=== PATIENT | female | born 1940 | race Two or more races ===

== ENCOUNTER 2019-11-18 19:48 | Inpatient (IN) | payer MEDICARE, OTHER ==
[~2019-11-18] VITALS: Ht 157.5 cm; Wt 49.9 kg
[~2019-11-18 19:48] MED LIST: ACETAMINOP160 MG/51 ORAL; AMLODIPINE BESYL5 MG ORAL; ANTIVERT25 MG ORAL; ASPIRIN81 MG ORAL; BISACODYL10 M1 RC; BP MED PO; CALCIUM CARBON650 M3 ORAL; CYANOCOBAL1000 MCG/2 IM; HEPARIN SO5000 UNIT2 SUBQ; HYDRALAZINE HCL10 MG ORAL; HYDRALAZINE HCL25 M1 ORAL; HYDROCODON-ACE1 EA18 PO; IPRAT-ALBUT 0.5-3 ML IH; LISINOPRIL20 MG PO; MAGNESIUM OXID400 M1 ORAL; NORVASC5 MG PO; NS IV; PLAVIX75 MG ORAL; PROMETHAZI6.25 MG/1 ORAL; PROTONIX IV40 MG IV; TYLENOL EXTRA500 MG ORAL; ZESTRIL20 MG ORAL; ZOFRAN2 MG/1 M1 IV; ZYPREXA2.5 MG ORAL
--- NOTE | 2019-11-18 19:59 | Emergency Room Report ---
History of Present Illness General Chief Complaint: Fever Source: Patient Present Illness HPI Disclaimer: Please note that this report is being documented using DRAGON technology. This can lead to erroneous entry secondary to incorrect interpretation by the dictating instrument. HPI: 79-year-old female presents from senior care facility for evaluation of fever and hypoxia. She has a history of schizophrenia, stroke, COPD, chronic respiratory failure, Parkinson's disease. Per EMS, they were called for fevers as high as 100.4 degrees and longterm staff there reported desaturations however they found her saturating in the low 90s. She is come from [facility] which has multiple COVID-19 infections confirmed. Patient is not reporting any complaints at this time though seems to be mostly nonverbal and not aware of her situation. She does not do some questioning. Patient is full code according to nursing facility. PMH: Schizophrenia, COPD, chronic respiratory failure, status post pacemaker PSH: Pacemaker Allergies: None reported Social Hx: None reported Allergies: Coded Allergies: No Known Allergies (Unverified , 03/14/12) COVID-19 Screening Contact w/high risk pt: Yes Recent Travel to affected area: No Experienced COVID-19 symptoms?: Yes COVID-19 symptoms experienced: Fever (T>100.4F or >38C), Shortness of Breath Nursing Documentation-PMH Hx Cardiac Problems: Yes Hx Hypertension: Yes Hx Cancer: No Hx Gastrointestinal Problems: Yes Hx Dialysis: No - CKD Hx Neurological Problems: Yes Hx Cerebrovascular Accident: Yes Hx Dementia: Yes Hx Dizziness: Yes Hx Weakness: Yes Review of Systems All Other Systems: negative except mentioned in HPI Physical Exam Vital Signs Date Time Temp Pulse Resp B/P (MAP) Pulse Ox O2 Delivery O2 Flow Rate FiO2 11/18/19 19:43 100.4 78 20 155/77 (103) 94 Room Air General: Awake, mostly nonverbal, frail-appearing HEENT: NC/AT. EOMI. Neck: Supple, trachea midline Chest Wall: Pacemaker palpable in chest wall Cardiovascular: RRR. Resp: 94% on room air, slightly rhonchorous, intermittent cough Abdomen: Abdomen is soft, nondistended. Nontender Skin: Intact. No abrasions, laceration or rash over the exposed skin MSK: Normal tone and bulk. Moving all extremities. No obvious deformity. Neuro: Awake, does not appear aware of her current situation. Medical Decision Making Diagnostic Impression: Primary Impression: Pneumonia due to COVID-19 virus Additional Impression: Suspected 2019 novel coronavirus infection ER Course 79-year-old female presents from senior care facility for evaluation of fevers and shortness of breath. Differential includes was not limited to pneumonia, bronchitis, viral syndrome, COVID-19 infection, sepsis, CHF exacerbation, COPD exacerbation, ACS to name a few. Based on the patient's presenting signs, symptoms and physical exam findings, the patient has been screened and is suspected to have COVID-19. Will send swabs and placed in respiratory isolation. We will draw blood labs including blood cultures, lactate. Will treat the patient's fever. She will require admission in respiratory isolation. Laboratory Tests Test 11/18/19 20:19 11/18/19 20:40 11/18/19 21:03 White Blood Count 5.2 K/UL (4.8-10.8) Red Blood Count 3.53 M/UL (4.20-5.40) L Hemoglobin 10.0 G/DL (12.0-16.0) L Hematocrit 31.0 % (37.0-47.0) L Mean Corpuscular Volume 88 FL (80-99) Mean Corpuscular Hemoglobin 28.3 PG (27.0-31.0) Mean Corpuscular Hemoglobin Concent 32.2 G/DL (32.0-36.0) Red Cell Distribution Width 14.1 % (11.6-14.8) Platelet Count 160 K/UL (150-450) Mean Platelet Volume 8.2 FL (6.5-10.1) Neutrophils (%) (Auto) 78.7 % (45.0-75.0) H Lymphocytes (%) (Auto) 12.1 % (20.0-45.0) L Monocytes (%) (Auto) 9.0 % (1.0-10.0) Eosinophils (%) (Auto) 0.0 % (0.0-3.0) Basophils (%) (Auto) 0.3 % (0.0-2.0) Sodium Level 138 MMOL/L (136-145) Potassium Level 4.6 MMOL/L (3.5-5.1) Chloride Level 103 MMOL/L (98-107) Carbon Dioxide Level 26 MMOL/L (21-32) Blood Urea Nitrogen 37 mg/dL (7-18) H Creatinine 1.4 MG/DL (0.55-1.30) H Estimated Glomerular Filtration Rate 36.4 mL/min (>60) Glucose Level 133 MG/DL (74-106) H Lactic Acid Level 0.90 mmol/L (0.4-2.0) Calcium Level 8.7 MG/DL (8.5-10.1) Total Bilirubin 0.4 MG/DL (0.2-1.0) Aspartate Amino Transferase (AST) 17 U/L (15-37) Alanine Aminotransferase (ALT) < 6 U/L (12-78) L Alkaline Phosphatase 71 U/L (46-116) Total Creatine Kinase 27 U/L (26-308) Creatine Kinase MB < 0.5 NG/ML (0.0-3.6) Creatine Kinase MB Relative Index 1.8 Troponin I 0.000 ng/mL (0.000-0.056) Pro-B-Type Natriuretic Peptide 368 pg/mL (0-125) H Total Protein 7.3 G/DL (6.4-8.2) Albumin 3.0 G/DL (3.4-5.0) L Globulin 4.3 g/dL Albumin/Globulin Ratio 0.7 (1.0-2.7) L Urine Color Pending Urine Appearance Pending Urine pH Pending Urine Specific [place] Pending Urine Protein Pending Urine Glucose (UA) Pending Urine Ketones Pending Urine Blood Pending Urine Nitrite Pending Urine Bilirubin Pending Urine Urobilinogen Pending Urine Leukocyte Esterase Pending Arterial Blood pH 7.430 (7.350-7.450) Arterial Blood Partial Pressure CO2 37.6 mmHg (35.0-45.0) Arterial Blood Partial Pressure O2 73.9 mmHg (75.0-100.0) L Arterial Blood HCO3 24.6 mmol/L (22.0-26.0) Arterial Blood Oxygen Saturation 94.2 % (95-100) L Arterial Blood Base Excess 0.5 (-2-2) [place] Test Positive Microbiology Date/Time Source Procedure Growth Status 11/18/19 20:19 Nasal Nares - Final Complete 11/18/19 20:19 Nasal Nares - Final Complete EKG Diagnostic Results EKG Time: 19:55 Rate: normal Rhythm: NSR ST Segments: no acute changes Other Impression Sinus rhythm, left axis deviation, normal intervals, nonspecific T wave changes. Anterior Q waves Rhythm Strip Diag. Results Rhythm Strip Time: 19:55 EP Interpretation: yes Rate: 80s Rhythm: NSR, no PVC's, no ectopy Chest X-Ray Diagnostic Results Chest X-Ray Diagnostic Results : Chest X-Ray Ordered: Yes # of Views/Limited/Complete: 1 View Interpretation: other - Right lower lobe consolidation and bilateral pulmonary congestion, pacemaker left upper chest Impression: Other - Right lower lobe consolidation suspicious for pneumonia. Bilateral pulmonary congestion Electronically Signed by: Electronically signed by Dr. Thanh Will Reevaluation Time: 21:22 Last Vital Signs Date Time Temp Pulse Resp B/P (MAP) Pulse Ox O2 Delivery O2 Flow Rate FiO2 11/18/19 19:43 100.4 78 20 155/77 (103) 94 Room Air Reevaluation Impression X-ray concerning for right lower lobe infiltrate and bilateral pulmonary congestion. Suspect COVID-19 in this patient. Will remain in respiratory isolation, start on ceftriaxone azithromycin. Slight hypoxia on ABG but the patient is feeling better on oxygen. Not in respiratory distress. He will be admitted to the hospital for further care to her PMD, Dr. Ovalle. Disposition: ADMITTED INPATIENT Condition: Serious Thanh Will MD Nov 18, 2019 19:59
[2019-11-18] MEDS ORDERED: Acetaminophen 500mg (ES) tab ORAL ONE (20:00)
[2019-11-18 20:05] VITALS: BP 130/74
--- NOTE | 2019-11-18 20:05 | NUR ---
ED Nurse Note: Patient brought in by ambulance [id number] from [facility] d/t low O2 sat and fever. Patient nonverbal and only responds to deep pain. Patient bedridden. Patient temp upon assessment 101.9 F all other VSS. Patient placed on curb attendant. Patient 93% O2 sat on 4L Nasal Cannula. Patient stable upon assessment. Addendum: 11/18/19 at 2113 by RHIANNON ED Nurse Note: Patient brought in by ambulance [id number] from [facility] d/t low O2 sat and fever. Patient aao x 1 only able to state name and nonverbal otherwise, follows simple commands. Responds to deep pain. Patient bedridden d/t hx of unsteady gait. Patient temp upon assessment 101.9 F all other VSS. Patient placed on curb attendant. Patient 93% O2 sat on 4L Nasal Cannula. Patient stable upon assessment.
[2019-11-18] MEDS ORDERED: CATAPRES0.1 MG ORAL (20:07)
[2019-11-18] MEDS ORDERED: FLOMAX0.4 MG ORAL (20:07)
[2019-11-18] MEDS ORDERED: RISPERDAL2 MG ORAL (20:07)
--- NOTE | 2019-11-18 20:25 | NUR ---
ED Nurse Note: blood, flu swab, and covid swab sent to lab. Xray at bedside.
[2019-11-18 20:44] LABS: BASOPHILS % (AUTO) 0.3 % (0.0-2.0); LYMPHOCYTES % (AUTO) 12.1 % (20.0-45.0); MEAN CORPUSCULAR VOLUME 88 FL (80-99); NEUTROPHILS % (AUTO) 78.7 % (45.0-75.0); PLATELET COUNT 160 K/UL (150-450); RED BLOOD COUNT 3.53 M/UL (4.20-5.40); RED CELL DISTRIBUTION WIDTH 14.1 % (11.6-14.8); WHITE BLOOD COUNT 5.2 K/UL (4.8-10.8)
--- NOTE | 2019-11-18 20:46 | NUR ---
ED Nurse Note: urine collected and sent to lab.
--- NOTE | 2019-11-18 20:55 | NUR ---
ED Nurse Note: Patient unable to swallow oral medication tylenol, ERMD notified, order changed to rectal tylenol.
[2019-11-18] MEDS ORDERED: Acetaminophen 650 MG SUPP RECTAL ONE (21:00)
[2019-11-18 21:02] LABS: CALCIUM 8.7 MG/DL (8.5-10.1); CHLORIDE 103 MMOL/L (98-107); CKMB < 0.5 NG/ML (0.0-3.6); POTASSIUM 4.6 MMOL/L (3.5-5.1); SODIUM 138 MMOL/L (136-145)
--- NOTE | 2019-11-18 21:02 | NUR ---
ED Nurse Note: ERMD at bedside. Per ERMD, ok to stay on 4L Nasal Cannula O2 sat at 95% upon assessment.
--- NOTE | 2019-11-18 21:06 | NUR ---
ED Nurse Note: RT at bedside.
--- NOTE | 2019-11-18 21:08 | NUR ---
ED Nurse Note: MRSA and VRE swab collected and sent to lab.
--- NOTE | 2019-11-18 21:11 | NUR ---
ED Nurse Note: Rocephin IV started, Azythromycin held until Rocephin completed d/t unknown IV compatibility.
[2019-11-18] MEDS ORDERED: Azithromycin 500 MG in NS 275 ML IV ONE (21:15)
[2019-11-18] MEDS ORDERED: cefTRIAXone 1 GM in NS 55 ML IVPB ONE (21:15)
[2019-11-18 21:20] LABS: BILIRUBIN, URINE NEGATIVE (NEGATIVE); COLOR,URINE PALE YELLOW; GLUCOSE, URINE (UA) NEGATIVE (NEGATIVE); KETONES,URINE NEGATIVE (NEGATIVE); LEUKOCYTE ESTERASE ,URINE 2+ (NEGATIVE); NITRITE,URINE POSITIVE (NEGATIVE); PH,URINE 5 (4.5-8.0); PROTEIN,URINE 3+ (NEGATIVE); UROBILINOGEN,URINE NORMAL MG/DL (0.0-1.0)
[2019-11-18 21:23] LABS: ALANINE AMINOTRANSFERASE < 6 U/L (12-78); ALBUMIN/GLOBULIN RATIO 0.7 (1.0-2.7); ALKALINE PHOSPHATASE 71 U/L (46-116); ASPARTATE AMINO TRANSFERASE 17 U/L (15-37); BILIRUBIN,TOTAL 0.4 MG/DL (0.2-1.0); BLOOD UREA NITROGEN 37 mg/dL (7-18); CARBON DIOXIDE 26 MMOL/L (21-32); CREATINE KINASE 27 U/L (26-308); CREATININE 1.4 MG/DL (0.55-1.30)
[2019-11-18] MEDS ORDERED: Acetaminophen 500mg (ES) tab ORAL PRN (21:30)
[2019-11-18] MEDS ORDERED: Heparin 5000 units/ml inj SUBQ SCH ×2 (21:30→23:00)
[2019-11-18] MEDS ORDERED: Albuterol 90mcg Inhaler 8gm INH PRN (21:30)
[2019-11-18 21:51] LABS: APPEARANCE,URINE SLIGHTLY CLOUDY
--- NOTE | 2019-11-18 22:02 | NUR ---
ED Nurse Note: Spoke to Reyes in pharmacy, informed that Heparin will be moved to 2300 instead of 2130 d/t med is for inpatient unit and pyxis in ER is not stocked with the medication.
[2019-11-18] MEDS ORDERED: Vancomycin 1gm/D5W 275ml IVPB ONE ×2 (23:00)
--- NOTE | 2019-11-18 23:49 | NUR ---
ED Nurse Note: Report given to CONNER Romero in tele.
--- NOTE | 2019-11-18 23:55 | NUR ---
TRANSFER TO FLOOR: Patient transferred to telemetry as ordered, per ERMD. Report given to CONNER Romero. Patient transported via gurney on ACLS protocol with tinware lithograph press operator accompanied by 1 RN and site damage prevention technician in stable condition.
--- NOTE | 2019-11-19 00:59 | NUR ---
NURSE NOTES: Received report from CONNER De La Vega. Patient arousable. In semi-mclean's position. AOx1. On 4L oxygen per nasal cannula. IV intact and flushed. No erythema, bleeding, or infiltration. skin intact. Bed in lowest position. Call light placed within reach. Clarified with Dr. Ovalle about his order of D5ND w/ 20meq KCl. Awaiting response. Will continue to monitor.
[2019-11-19] MEDS: Piperacillin/Tazobactam 3.375 GM in NS 110 ML IVPB SCH ×3 (02:58→22:44)
[2019-11-19 05:23] VITALS: BP 89/53
[2019-11-19 06:44] LABS: BASOPHILS % (AUTO) 0.4 % (0.0-2.0); EOSINOPHILS % (AUTO) 0.1 % (0.0-3.0); HEMATOCRIT 28.5 % (37.0-47.0); HEMOGLOBIN 9.5 G/DL (12.0-16.0); LYMPHOCYTES % (AUTO) 14.8 % (20.0-45.0); MEAN CORPUSCULAR VOLUME 86 FL (80-99); MONOCYTES % (AUTO) 8.5 % (1.0-10.0); NEUTROPHILS % (AUTO) 76.3 % (45.0-75.0); PLATELET COUNT 152 K/UL (150-450); RED CELL DISTRIBUTION WIDTH 12.7 % (11.6-14.8); WHITE BLOOD COUNT 4.7 K/UL (4.8-10.8)
--- NOTE | 2019-11-19 07:09 | NUR ---
NURSE NOTES: Dr. Ovalle modified IV hydration of D5ND w/ KCl 20 meq at a rate of 70/hr for 1 liter.
[2019-11-19 07:13] LABS: ANION GAP 8 mmol/L (5-15); BLOOD UREA NITROGEN 38 mg/dL (7-18); CALCIUM 8.2 MG/DL (8.5-10.1); CARBON DIOXIDE 26 MMOL/L (21-32); CHLORIDE 106 MMOL/L (98-107); CREATININE 1.4 MG/DL (0.55-1.30); POTASSIUM 4.4 MMOL/L (3.5-5.1); SODIUM 140 MMOL/L (136-145)
[2019-11-19 07:19] LABS: ALANINE AMINOTRANSFERASE 9 U/L (12-78); ALBUMIN 2.7 G/DL (3.4-5.0); ALBUMIN/GLOBULIN RATIO 0.7 (1.0-2.7); ALKALINE PHOSPHATASE 61 U/L (46-116); ASPARTATE AMINO TRANSFERASE 16 U/L (15-37); BILIRUBIN,TOTAL 0.3 MG/DL (0.2-1.0)
--- NOTE | 2019-11-19 07:31 | NUR ---
HAND-OFF: Report given to CONNER Swan. Plan of care endorsed.
[2019-11-19 08:00] VITALS: BP 114/74
[2019-11-19] MEDS: Tamsulosin 0.4mg cap ORAL SCH (09:27)
[2019-11-19] MEDS: Heparin 5000 units/ml inj SUBQ SCH ×2 (09:32→21:04)
--- NOTE | 2019-11-19 09:47 | Diagnostic Imaging Report ---
Indication: Shortness of breath Technique: One view of the chest Comparison: 07/21/2015 Findings: Inspiration is suboptimal. Interim development of interstitial and airspace opacities in the bilateral mid and lower lungs. There is evidence of hyperinflation of the right upper lobe The pleural spaces are clear. The heart size is normal. Interim placement of a left chest pacemaker Impression: Bilateral mid and lower lung opacities, likely infiltrates, either infectious or noninfectious of inflammatory. Edema also possible. Correlate with clinical findings
--- NOTE | 2019-11-19 10:51 | NUR ---
NURSE NOTES: Received patient from Selene Torrez. Patient is awake, non verbal. follow very simple commands. No signs and symptoms of pain at this time. Fall/Aspiration precsutions in place. call farley within patients reach. will follow
[2019-11-19 12:00] VITALS: BP 145/84
[2019-11-19] MEDS ORDERED: Azithromycin 250mg tab ORAL SCH (12:00)
--- NOTE | 2019-11-19 12:09 | NUR ---
CASE MANAGEMENT:REVIEW 79 YR OLD FEMALE BIBA FROM [facility] CC; FEVER 100.4. SOB. LOW SAT SI: PNA. SUSPECTED COVID 19 100.4 78 20 155/77 93% ON 4L/NC BUN+37 CR+1.4 IS: IV ROCEPHIN IV AZITHROMYCIN TYLENOL PO AND ID URINE CX CHEST XRAY COVID 19 : TO TELEMETRY DCP: [facility]
[2019-11-19] MEDS ORDERED: HydrALAZINE 10mg Tab ORAL PRN (12:45)
[2019-11-19 16:00] VITALS: BP 97/60
--- NOTE | 2019-11-19 16:30 | NUR ---
NURSE NOTES: Patient noted with temp oral temp of 101.1. Tylenol and cold sponge rendered. Recent temp 98.4. Will follow
--- NOTE | 2019-11-19 17:15 | Consultation ---
DATE OF CONSULTATION: 11/19/2019 INFECTIOUS DISEASES CONSULTATION CONSULTING PHYSICIAN: Marcela Zafar MD. REFERRING PHYSICIAN: Bhavesh Ovalle MD. REASON FOR CONSULTATION: Rule out COVID pneumonia. HISTORY OF PRESENTING ILLNESS: This is a 79-year-old lady with history of schizophrenia, COPD, respiratory failure, who came in with fever and hypoxia from a [place] [facility] facility where they have multiple COVID-19 infection. An Infectious Diseases consultation has been obtained for antibiotics. PAST MEDICAL HISTORY: 1. History of COPD. 2. History of schizophrenia. 3. Respiratory failure. 4. Status post pacemaker placement. SOCIAL HISTORY: Unknown. FAMILY HISTORY: Unknown. REVIEW OF SYSTEMS: Unable to obtain currently. MEDICATIONS: As an inpatient, she is on amlodipine, Risperdal, Flomax, subcutaneous heparin, clonidine, Zosyn, Tylenol, hydralazine, vancomycin, albuterol. ALLERGIES: No known drug allergies. PHYSICAL EXAMINATION: VITAL SIGNS: Temperature 98.8, T-max of 101.9, pulse of 70, respiratory rate 18, blood pressure 114/74, O2 saturation of 94%. Examination deferred due to COVID-19 possibility. LABORATORY AND DIAGNOSTIC DATA: White count 4.7, hemoglobin 9.5, hematocrit 28.5, MCV 86, platelet count of 152, neutrophils of 76%. Sodium 140, potassium 4.4, chloride 106, bicarb 26, BUN 38, creatinine 1.4, glucose 95, calcium 8.2. Total bilirubin 0.3, AST 16, ALT 9, alkaline phosphatase 61, total protein 6.6, albumin 2.7. UA showing 20 to 30 white cells. Nasal swab was negative for influenza A and B. Chest x-ray is showing bilateral mid and lower lung opacities likely infiltrate. ASSESSMENT: This is a 79-year-old lady with history of schizophrenia, stroke, COPD who comes in with fevers and is found to have: 1. Pneumonia, COVID-19 testing is pending. 2. History of schizophrenia. 3. Stroke. 4. COPD. PLAN: 1. Continue IV vancomycin and Zosyn. 2. COVID-19 testing is pending. 3. We will start the patient on hydroxychloroquine and azithromycin. 4. We will follow up the patient clinically. I would like to thank, Dr. Ovalle for this consultation. Marcela Zafar M.D. DR: Kris JOB#: [id number] CC: Bhavesh Ovalle M.D.
--- NOTE | 2019-11-19 19:29 | NUR ---
HAND-OFF: Report given to Selene Vidal. Plan of care endorsed.
--- NOTE | 2019-11-19 19:40 | NUR ---
NURSE NOTES: Received report from CONNER Swan. Patient is on bed, awake alert and oriented x 1-2. Patient connected to oxygen via nasal cannula @ 2Lpm with no respiratory distress noted at the moment, on regular diet, finely chopped, thin liquids, crush medications. classroom monitor is on placed on sinus rhythm, no chest pain nor discomfort at this time. IV is on Left AC G-20 with IVF of D5NSS with 20 meqs KCL @ 70cc/hour that is patent, intact and asymptomatic. Patient is bedbound, on aspiration precaution. Safety measures are in placed. Bed in lowest and locked position. Call light and bed side table within reach. Side rails up x 2, bed alarm is on. Instructed to call for any assistance, will continue plan of care.
[2019-11-19 20:00] VITALS: BP 136/76
[2019-11-20] VITALS: BP 147/77
--- NOTE | 2019-11-20 03:00 | History and Physical Report ---
DATE OF ADMISSION: 11/18/2019 CHIEF COMPLAINT: Possible COVID pneumonia. HISTORY OF PRESENT ILLNESS: The patient is a pleasant 79-year-old female, well known to me. She has a history of Parkinson's disease, bipolar disorder, hypertension, COPD, chronic kidney disease, stroke, conduction system disease status post pacemaker. She was transferred from a group home facility with complaints of generalized weakness, malaise, cough, fevers that started approximately one week ago and noted that several other residents at her facility have been tested positive for COVID-19. On evaluation in the emergency room, the patient was febrile. She was hypoxic and placed on 2 liters nasal cannula. Laboratories were significant for normal white count. Creatinine of 1.4. Urinalysis, 20-30 wbc's. Chest x-ray showed bilateral mid and lower lung opacities, likely infiltrates. The patient was influenza negative. She is now on presumptive diagnosis of COVID-19 pneumonia versus bacterial pneumonia. PAST MEDICAL HISTORY: As above. PAST SURGICAL HISTORY: None. CURRENT MEDICATIONS: Reconciled and reviewed. ALLERGIES: None. FAMILY HISTORY: None. SOCIAL HISTORY: Negative for tobacco, ethanol, or drugs. REVIEW OF SYSTEMS: GENERAL: Positive fevers and chills, but no night sweats. HEENT: No headaches or visual changes. CARDIOPULMONARY: Positive cough. Positive shortness of breath. No sputum. GASTROINTESTINAL: No nausea or vomiting. GENITOURINARY: No urgency or frequency. MUSCULOSKELETAL: No joint pain or swelling. NEUROLOGIC: No evidence of seizures. PHYSICAL EXAMINATION: VITAL SIGNS: Temperature was 101.1, pulse 87, respirations 20, blood pressure 145/84, O2 saturation 94% on two liters nasal cannula. GENERAL: The patient is well developed, distress. She has mild tremor noted that is chronic. NECK: Supple. There is no jugular venous distention. HEART: Regular rate and rhythm. LUNGS: Clear anteriorly. ABDOMEN: Soft, nontender, nondistended. EXTREMITIES: Without clubbing, cyanosis, or edema. LABORATORY DATA: UA showed 20-30 wbc's. White count 5, hemoglobin 10. Sodium 138, potassium 4.6, magnesium was 2. ASSESSMENT: The patient is a 79-year-old female with multiple medical problems admitted with complaints of shortness of breath, fever, cough and likely COVID-19 pneumonia. She also has urinary tract infection, history of hypertension, stroke, and pacemaker. PLAN: 1. IV antibiotics for UTI. 2. Supplemental oxygen as needed. 3. Continue outpatient cardiac regimen. 4. Cardiology, Pulmonary, and ID consultation. 5. Possibility of COVID-19 pneumonia was discussed with the patient. She has had intermittent cough and fevers for approximately seven days and has had definite exposure at the intermediate. Risk and benefits of starting hydroxychloroquine and azithromycin were discussed with the patient and she was agreeable with starting therapy. It was also discussed with steamfitter apprentice who believes that the benefits outweigh the risks. The patient again gave consent to trying hydroxychloroquine and azithromycin for COVID-19 pneumonia. Bhavesh Ovalle M.D. DR: Aleida JOB#: [id number] CC:
[2019-11-20 04:00] VITALS: BP 135/72
--- NOTE | 2019-11-20 05:00 | Progress Note ---
DATE: 11/19/2019 CARDIOLOGY PROGRESS NOTE SUBJECTIVE: The patient still has fevers and congestion with cough. She is on day 2 of anti-COVID therapy. Oxygen saturation on room air is 94%. OBJECTIVE: VITAL SIGNS: Blood pressure 136/76, heart rate 69, respiratory rate 19. LUNGS: Bilateral breath sounds. LUNGS: Rhonchi. CARDIAC: Regular rhythm and rate. Normal S1, S2. ABDOMEN: Soft. EXTREMITIES: No edema. IMPRESSION: 1. COVID-19 pneumonia. 2. Permanent pacemaker. 3. Cerebrovascular disease. 4. History of COPD. PLAN: 1. Cardiac monitoring. 2. Follow up QTc interval. 3. Azithromycin and hydroxychloroquine combination day #2 today. 4. DVT prophylaxis. 5. Nasal oxygen. 6. Maintain adequate hydration. 7. Monitor electrolytes and replace accordingly, especially potassium and magnesium levels while on current anti-COVID therapy. Hadley Rowland M.D. DR: Danial JOB#: [id number] CC:
[2019-11-20] MEDS: Piperacillin/Tazobactam 3.375 GM in NS 110 ML IVPB SCH ×3 (05:51→22:34)
[2019-11-20 06:02] LABS: BASOPHILS % (AUTO) 0.1 % (0.0-2.0); EOSINOPHILS % (AUTO) 0.3 % (0.0-3.0); HEMATOCRIT 29.8 % (37.0-47.0); MEAN CORPUSCULAR VOLUME 85 FL (80-99); MONOCYTES % (AUTO) 7.5 % (1.0-10.0); NEUTROPHILS % (AUTO) 80.2 % (45.0-75.0); PLATELET COUNT 173 K/UL (150-450); RED BLOOD COUNT 3.49 M/UL (4.20-5.40); RED CELL DISTRIBUTION WIDTH 12.8 % (11.6-14.8); WHITE BLOOD COUNT 5.7 K/UL (4.8-10.8)
[2019-11-20 06:47] LABS: ALANINE AMINOTRANSFERASE 18 U/L (12-78); ALBUMIN 2.7 G/DL (3.4-5.0); ALBUMIN/GLOBULIN RATIO 0.6 (1.0-2.7); ALKALINE PHOSPHATASE 58 U/L (46-116); ANION GAP 10 mmol/L (5-15); ASPARTATE AMINO TRANSFERASE 20 U/L (15-37); BILIRUBIN,TOTAL 0.4 MG/DL (0.2-1.0); BLOOD UREA NITROGEN 33 mg/dL (7-18); CALCIUM 8.6 MG/DL (8.5-10.1); CARBON DIOXIDE 25 MMOL/L (21-32); CHLORIDE 106 MMOL/L (98-107); CREATININE 1.4 MG/DL (0.55-1.30); POTASSIUM 4.7 MMOL/L (3.5-5.1); SODIUM 141 MMOL/L (136-145)
--- NOTE | 2019-11-20 07:19 | NUR ---
HAND-OFF: Report given to CONNER Woods. Patient is in stable condition, no complaints at this time. Plan of care endorsed.
--- NOTE | 2019-11-20 07:46 | NUR ---
NURSE NOTES: Received report from CONNER Vidal. Patient in bed resting, no active s/s cardiac, respiratory distress noticed at this time. Patient AOx1, on nasal cannula, non-verbal, follow simple command. IV on left AC 20G, asymptomatic, patent, intact, IVF running as prescribed rate. Bed in lowest position, side rails upx2, call light within reach, bed alarm on. Will continue to monitor.
[2019-11-20 08:00] VITALS: BP 105/59
[2019-11-20] MEDS: Tamsulosin 0.4mg cap ORAL SCH (08:54)
[2019-11-20] MEDS: Heparin 5000 units/ml inj SUBQ SCH ×2 (08:55→20:47)
[2019-11-20] MEDS: Azithromycin 250mg tab ORAL SCH (08:55)
[2019-11-20] MEDS ORDERED: Vancomycin 1.25gm/NS Premix q24h IVPB SCH (10:00)
--- NOTE | 2019-11-20 10:36 | General Progress Note ---
Assessment/Plan Problem List: (1) CKD (chronic kidney disease) stage 1, GFR 90 ml/min or greater ICD Codes: N18.1 - Chronic kidney disease, stage 1 SNOMED: 447498409 (2) CVA (cerebral vascular accident) ICD Codes: I63.9 - Cerebral infarction, unspecified SNOMED: 986278511 (3) Encephalopathy acute ICD Codes: G93.40 - Encephalopathy acute SNOMED: 5744865 (4) DINA (acute kidney injury) ICD Codes: N17.9 - DINA (acute kidney injury) SNOMED: 53701695 (5) Pneumonia due to COVID-19 virus ICD Codes: U07.1 - COVID-19; J12.89 - Other viral pneumonia SNOMED: 069644050, 290249502 Status: stable, progressing Assessment/Plan: Continue supplemental oxygen as needed. Coronavirus treatment per ID. Antiplatelet treatment. Monitor lites and renal function. Monitor EKG for QT prolongation. Cardiology and infectious disease follow-up. dvt and stress ulcer prophylaxis. Plan of care discussed with patient at the bedside. Patient agrees with plan of care Subjective ROS Limited/Unobtainable: No Constitutional: Reports: malaise, weakness HEENT: Reports: no symptoms Cardiovascular: Reports: no symptoms Respiratory: Reports: cough, shortness of breath Gastrointestinal/Abdominal: Reports: no symptoms Genitourinary: Reports: no symptoms Neurologic/Psychiatric: Reports: anxiety, depressed, emotional problems Endocrine: Reports: no symptoms Hematologic/Lymphatic: Reports: no symptoms Allergies: Coded Allergies: No Known Allergies (Unverified , 03/14/12) All Systems: reviewed and negative except above Subjective There have been no overnight events. Patient remains in isolation for coronavirus. She remains on 2 L of oxygen via nasal cannula. No chest pain or shortness of breath. Currently tolerating hydroxychloroquine and azithromycin. Fevers are improving. Objective Last 24 Hour Vital Signs Date Time Temp Pulse Resp B/P (MAP) Pulse Ox O2 Delivery O2 Flow Rate FiO2 11/20/19 09:00 60 105/59 11/20/19 09:00 Nasal Cannula 2.0 11/20/19 08:00 2.0 11/20/19 08:00 60 11/20/19 08:00 97.3 60 24 105/59 (74) 91 11/20/19 05:52 147/72 11/20/19 04:00 99.5 75 24 135/72 (93) 90 11/20/19 04:00 2.0 11/20/19 03:43 68 11/20/19 00:04 125/71 11/20/19 00:00 99.3 79 23 147/77 (100) 91 11/20/19 00:00 2.0 11/19/19 23:37 64 11/19/19 21:00 Nasal Cannula 2.0 11/19/19 20:00 98.6 69 19 136/76 (96) 93 11/19/19 20:00 2.0 11/19/19 19:02 70 11/19/19 18:00 97/60 11/19/19 18:00 67 97/60 11/19/19 16:00 2.0 11/19/19 16:00 98.4 66 20 97/60 (72) 90 11/19/19 16:00 67 11/19/19 14:00 100.5 11/19/19 12:49 100.5 11/19/19 12:19 145/84 11/19/19 12:00 90 11/19/19 12:00 101.1 87 20 145/84 (104) 94 11/19/19 12:00 2.0 Intake and Output 11/19/19 11/20/19 19:00 07:00 Intake Total 190 ml 670 ml Output Total 1000 ml Balance 190 ml -330 ml Intake Oral 120 ml 250 ml IV Total 70 ml 420 ml Output Urine Total 1000 ml # Voids 2 2 Laboratory Tests 11/20/19 05:30: White Blood Count 5.7, Red Blood Count 3.49L, Hemoglobin 10.0L, Hematocrit 29.8L , Mean Corpuscular Volume 85, Mean Corpuscular Hemoglobin 28.8, Mean Corpuscular Hemoglobin Concent 33.7, Red Cell Distribution Width 12.8, Platelet Count 173, Mean Platelet Volume 8.3, Neutrophils (%) (Auto) 80.2H, Lymphocytes ( %) (Auto) 12.0L, Monocytes (%) (Auto) 7.5, Eosinophils (%) (Auto) 0.3, Basophils (%) (Auto) 0.1, Sodium Level 141, Potassium Level 4.7, Chloride Level 106, Carbon Dioxide Level 25, Anion Gap 10, Blood Urea Nitrogen 33H, Creatinine 1.4H, Estimat Glomerular Filtration Rate 36.4, Glucose Level 119H, Calcium Level 8.6, Magnesium Level 2.0, Total Bilirubin 0.4, Aspartate Amino Transf (AST /SGOT) 20, Alanine Aminotransferase (ALT/SGPT) 18, Alkaline Phosphatase 58, Total Protein 7.0, Albumin 2.7L, Globulin 4.3, Albumin/Globulin Ratio 0.6L, Thyroid Stimulating Hormone (TSH) 1.740, Random Vancomycin Level 6.8 Height (Feet): 5 Height (Inches): 2.00 Weight (Pounds): 120 General Appearance: WD/WN, alert Neck: supple Cardiovascular: normal rate Respiratory/Chest: chest wall non-tender, lungs clear, normal breath sounds, no respiratory distress, no accessory muscle use Abdomen: normal bowel sounds, non tender, soft, no organomegaly Edema: no edema noted Arm (L), no edema noted Arm (R), no edema noted Leg (L), no edema noted Leg (R), no edema noted Pedal (L), no edema noted Pedal (R), no edema noted Generalized Neurologic: cotton seed culler II-XII grossly normal, alert, responsive Skin: normal pigmentation Bhavesh Ovalle MD Nov 20, 2019 10:36
--- NOTE | 2019-11-20 11:53 | Infectious Diseases Prog Note ---
Assessment/Plan Assessment/Plan A; 1. Pneumonia, suspected COVID-19 testing is pending. 2. History of schizophrenia. 3. Stroke. 4. COPD. 5. Pyuria & bacteriuria PLAN: 1. Discontinue IV vancomycin , Continue Zosyn. 2. Will f/u COVID-19 test & urine culture 3. Continue hydroxychloroquine and azithromycin. 4. We will follow up the patient clinically. Subjective ROS Limited/Unobtainable: Yes Constitutional: Reports: other - no fever today Allergies: Coded Allergies: No Known Allergies (Unverified , 03/14/12) Objective Vital Signs Last 24 Hour Vital Signs Date Time Temp Pulse Resp B/P (MAP) Pulse Ox O2 Delivery O2 Flow Rate FiO2 11/20/19 09:00 60 105/59 11/20/19 09:00 Nasal Cannula 2.0 11/20/19 08:00 2.0 11/20/19 08:00 60 11/20/19 08:00 97.3 60 24 105/59 (74) 91 11/20/19 05:52 147/72 11/20/19 04:00 99.5 75 24 135/72 (93) 90 11/20/19 04:00 2.0 11/20/19 03:43 68 11/20/19 00:04 125/71 11/20/19 00:00 99.3 79 23 147/77 (100) 91 11/20/19 00:00 2.0 11/19/19 23:37 64 11/19/19 21:00 Nasal Cannula 2.0 11/19/19 20:00 98.6 69 19 136/76 (96) 93 11/19/19 20:00 2.0 11/19/19 19:02 70 11/19/19 18:00 97/60 11/19/19 18:00 67 97/60 11/19/19 16:00 2.0 11/19/19 16:00 98.4 66 20 97/60 (72) 90 11/19/19 16:00 67 11/19/19 14:00 100.5 11/19/19 12:49 100.5 11/19/19 12:19 145/84 11/19/19 12:00 90 11/19/19 12:00 101.1 87 20 145/84 (104) 94 11/19/19 12:00 2.0 Height (Feet): 5 Height (Inches): 2.00 Weight (Pounds): 120 General Appearance: no acute distress HEENT: mucous membranes moist Respiratory/Chest: lungs clear, other - oxygen by nasal cannula Cardiovascular: normal rate Abdomen: soft, non tender Extremities: no edema Neurologic/Psychiatric: other - sleeping Microbiology Date/Time Source Procedure Growth Status 11/18/19 20:19 Blood Blood Culture - Preliminary NO GROWTH AFTER 24 HOURS Resulted 11/18/19 20:04 Blood Blood Culture - Preliminary NO GROWTH AFTER 24 HOURS Resulted 11/18/19 20:19 Nasal Nares - Final Complete 11/18/19 20:19 Nasal Nares - Final Complete 11/18/19 20:40 Urine,Clean Catch Urine Culture - Preliminary Gram Negative Bacillus 1 Resulted 11/18/19 21:00 Rectum Received Laboratory Tests Test 11/20/19 05:30 White Blood Count 5.7 K/UL (4.8-10.8) Red Blood Count 3.49 M/UL (4.20-5.40) L Hemoglobin 10.0 G/DL (12.0-16.0) L Hematocrit 29.8 % (37.0-47.0) L Mean Corpuscular Volume 85 FL (80-99) Mean Corpuscular Hemoglobin 28.8 PG (27.0-31.0) Mean Corpuscular Hemoglobin Concent 33.7 G/DL (32.0-36.0) Red Cell Distribution Width 12.8 % (11.6-14.8) Platelet Count 173 K/UL (150-450) Mean Platelet Volume 8.3 FL (6.5-10.1) Neutrophils (%) (Auto) 80.2 % (45.0-75.0) H Lymphocytes (%) (Auto) 12.0 % (20.0-45.0) L Monocytes (%) (Auto) 7.5 % (1.0-10.0) Eosinophils (%) (Auto) 0.3 % (0.0-3.0) Basophils (%) (Auto) 0.1 % (0.0-2.0) Sodium Level 141 MMOL/L (136-145) Potassium Level 4.7 MMOL/L (3.5-5.1) Chloride Level 106 MMOL/L (98-107) Carbon Dioxide Level 25 MMOL/L (21-32) Anion Gap 10 mmol/L (5-15) Blood Urea Nitrogen 33 mg/dL (7-18) H Creatinine 1.4 MG/DL (0.55-1.30) H Estimat Glomerular Filtration Rate 36.4 mL/min (>60) Glucose Level 119 MG/DL (74-106) H Calcium Level 8.6 MG/DL (8.5-10.1) Magnesium Level 2.0 MG/DL (1.8-2.4) Total Bilirubin 0.4 MG/DL (0.2-1.0) Aspartate Amino Transf (AST/SGOT) 20 U/L (15-37) Alanine Aminotransferase (ALT/SGPT) 18 U/L (12-78) Alkaline Phosphatase 58 U/L (46-116) Total Protein 7.0 G/DL (6.4-8.2) Albumin 2.7 G/DL (3.4-5.0) L Globulin 4.3 g/dL Albumin/Globulin Ratio 0.6 (1.0-2.7) L Thyroid Stimulating Hormone (TSH) 1.740 uiU/mL (0.358-3.740) Random Vancomycin Level 6.8 ug/mL Current Medications Medications (Trade) Dose Ordered Sig/David Route PRN Reason Start Time Stop Time Status Last Admin Dose Admin Acetaminophen (Tylenol) 650 mg Q6H PRN ORAL Mild Pain (Pain Scale 1-3) 11/18/19 21:30 12/18/19 21:29 11/19/19 12:19 Albuterol Sulfate (Proventil MDI) 2 puff Q4H PRN INH Shortness of Breath 11/18/19 21:30 02/16/20 21:29 Amlodipine Besylate (Norvasc) 5 mg BID ORAL 11/19/19 09:00 12/19/19 08:59 11/19/19 09:27 Azithromycin (Zithromax) 250 mg DAILY ORAL 11/20/19 09:00 11/23/19 09:01 11/20/19 08:55 Clonidine HCl (Catapres Tab) 0.1 mg EVERY 6 HOURS ORAL 11/19/19 00:00 02/17/20 00:00 11/20/19 05:52 Dextrose/ Electrolytes 1,000 ml @ 70 mls/hr [id number] IV 11/19/19 08:00 12/18/19 07:59 11/20/19 04:26 Heparin Sodium (Porcine) (Heparin 5000 units/ml) 5,000 units BID@0900,2100 SUBQ 11/19/19 09:00 01/03/20 08:59 11/20/19 08:55 Hydralazine HCl (Apresoline) 10 mg Q6H PRN ORAL PRN SBP>160 11/19/19 12:45 02/17/20 12:44 Hydroxychloroquine Sulfate (Plaquenil) 200 mg BID ORAL 11/20/19 09:00 11/23/19 18:01 11/20/19 08:55 Magnesium Oxide (Mag-Ox 400mg) 400 mg BID ORAL 11/20/19 18:00 12/20/19 17:59 Piperacillin Sod/ Tazobactam Sod 3.375 gm/Sodium Chloride 110 ml @ 27.5 mls/hr EVERY 8 HOURS IVPB 11/18/19 23:00 11/23/19 22:59 11/20/19 05:51 Risperidone (RisperDAL) 2 mg DAILY ORAL 11/19/19 09:00 01/03/20 08:59 11/20/19 08:54 Tamsulosin HCl (Flomax) 0.4 mg DAILY ORAL 11/19/19 09:00 12/19/19 08:59 11/20/19 08:54 Vancomycin HCl (Vanco rx to dose) 1 ea DAILY PRN MISC Per rx protocol 11/18/19 21:30 12/18/19 21:29 Vancomycin/Sodium Chloride 275 ml @ 183.333 mls/hr ONCE IVPB 11/20/19 10:00 11/20/19 12:00 11/20/19 10:53 Eleazar Prieto MD Nov 20, 2019 11:53
[2019-11-20 12:00] VITALS: BP 95/55
[2019-11-20 16:00] VITALS: BP 137/83
[2019-11-20] MEDS: Magnesium Oxide 400mg tab ORAL SCH (17:11)
--- NOTE | 2019-11-20 19:29 | NUR ---
HAND-OFF: Report given to CONNER Vidal. Endorsed plan of care.
--- NOTE | 2019-11-20 19:33 | NUR ---
NURSE NOTES: Received report from CONNER Woods. Patient is on bed, asleep alert and oriented x 1. Patient connected to oxygen via nasal cannula @ 3Lpm with no respiratory distress noted at the moment, on regular diet, finely chopped, thin liquids, crush medications. telemetry monitor is on placed on sinus rhythm, no chest pain nor discomfort at this time. IV is on Left AC G-20 with IVF of D5NSS with 20 meqs KCL @ 70cc/hour that is patent, intact and asymptomatic. Patient is bedbound, on aspiration and fall precaution. Safety measures are in placed. Bed in lowest and locked position. Call light and bed side table within reach. Side rails up x 2, bed alarm is on. Instructed to call for any assistance, CRE, MRSA and VRE swabs are pending, pending procedure is 2D-ECHO, will continue plan of care.
[2019-11-20 20:00] VITALS: BP 134/68
[2019-11-21] VITALS: BP 130/66
--- NOTE | 2019-11-21 02:45 | Progress Note ---
DATE: 11/20/2019 CARDIOLOGY PROGRESS NOTE SUBJECTIVE: The patient is on 2 liters nasal cannula. No shortness of breath. Some cough. Defervescing, no fever spikes. T-max 100.5 yesterday. She is on hydroxychloroquine and azithromycin combination day 3. PHYSICAL EXAMINATION: LUNGS: Bilateral breath sounds. Few rhonchi. CARDIAC: Regular rhythm and rate. Normal S1, S2. ABDOMEN: Soft. EXTREMITIES: No edema. Monitor with paced rhythm. LABORATORY DATA: White count 5.7, hemoglobin 10. Potassium 4.7, BUN 33, creatinine 1.4. Albumin 2.7. IMPRESSION: 1. COVID-19 with pneumonia. 2. Permanent pacemaker. 3. Cerebrovascular disease. 4. COPD. 5. Hypertensive heart disease. PLAN: Continue cardiac monitoring. Check QTc interval for prolongation as needed (not paced ventricular beat). Respiratory hygiene. Monitor electrolytes and replace as needed including magnesium level. Hadley Rowland M.D. DR: BRYANT/JACINTA JOB#: [id number] CC:
[2019-11-21 04:00] VITALS: BP 130/70
[2019-11-21] MEDS: Piperacillin/Tazobactam 3.375 GM in NS 110 ML IVPB SCH ×2 (06:04→13:20)
--- NOTE | 2019-11-21 06:59 | NUR ---
NURSE NOTES: Called Dr. Zafar's office left a voice mail and relayed the result of covid-19 test. Awaiting for call back.
--- NOTE | 2019-11-21 07:10 | NUR ---
NURSE NOTES:Handoff received from CONNER Vidal. Patient received sleeping in bed, no acute signs of distress noted. Patient has purewick connected to suction, IV fluids running at prescribed rate. IV site is clean dry and intact. Patient is positive for Covid19, on droplet and contact precautions. Patient is on 4 liters nasal cannula. Bed in the low and locked position with call light at reach. will continue to monitor patient/
[2019-11-21 07:21] LABS: ALANINE AMINOTRANSFERASE 19 U/L (12-78); ALBUMIN 2.5 G/DL (3.4-5.0); ALBUMIN/GLOBULIN RATIO 0.6 (1.0-2.7); ALKALINE PHOSPHATASE 55 U/L (46-116); ANION GAP 8 mmol/L (5-15); ASPARTATE AMINO TRANSFERASE 21 U/L (15-37); BILIRUBIN,TOTAL 0.4 MG/DL (0.2-1.0); BLOOD UREA NITROGEN 23 mg/dL (7-18); CALCIUM 8.7 MG/DL (8.5-10.1); CARBON DIOXIDE 26 MMOL/L (21-32); CHLORIDE 109 MMOL/L (98-107); CREATININE 1.2 MG/DL (0.55-1.30); POTASSIUM 4.7 MMOL/L (3.5-5.1); SODIUM 143 MMOL/L (136-145)
[2019-11-21 07:28] LABS: HEMATOCRIT 25.8 % (37.0-47.0); HEMOGLOBIN 8.7 G/DL (12.0-16.0); MEAN CORPUSCULAR VOLUME 86 FL (80-99); PLATELET COUNT 196 K/UL (150-450); RED CELL DISTRIBUTION WIDTH 16.7 % (11.6-14.8)
--- NOTE | 2019-11-21 07:31 | NUR ---
HAND-OFF: Report given to CONNER Flowers. Patient is in stable condition, RN made aware of covid test result. Plan of care endorsed.
[2019-11-21 08:00] VITALS: BP 151/88
--- NOTE | 2019-11-21 08:39 | General Progress Note ---
Assessment/Plan Problem List: (1) CKD (chronic kidney disease) stage 1, GFR 90 ml/min or greater ICD Codes: N18.1 - Chronic kidney disease, stage 1 SNOMED: 745085609 (2) CVA (cerebral vascular accident) ICD Codes: I63.9 - Cerebral infarction, unspecified SNOMED: 631435343 (3) Encephalopathy acute ICD Codes: G93.40 - Encephalopathy acute SNOMED: 7196821 (4) DINA (acute kidney injury) ICD Codes: N17.9 - DINA (acute kidney injury) SNOMED: 46455254 (5) Pneumonia due to COVID-19 virus ICD Codes: U07.1 - COVID-19; J12.89 - Other viral pneumonia SNOMED: 636506578, 598981056 Status: stable, progressing Assessment/Plan: Continue supplemental oxygen as needed. Coronavirus treatment per ID. Antiplatelet treatment. Monitor lites and renal function. Monitor EKG for QT prolongation. repeat cxr. Cardiology and infectious disease follow-up. dvt and stress ulcer prophylaxis. Plan of care discussed with patient at the bedside. Patient agrees with plan of care Subjective ROS Limited/Unobtainable: No Constitutional: Reports: malaise, weakness HEENT: Reports: no symptoms Cardiovascular: Reports: no symptoms Respiratory: Reports: cough, shortness of breath Gastrointestinal/Abdominal: Reports: no symptoms Genitourinary: Reports: no symptoms Neurologic/Psychiatric: Reports: anxiety Endocrine: Reports: no symptoms Hematologic/Lymphatic: Reports: no symptoms Allergies: Coded Allergies: No Known Allergies (Unverified , 03/14/12) All Systems: reviewed and negative except above Subjective There have been no overnight events. Patient remains in isolation for coronavirus. She remains on 2 L of oxygen via nasal cannula. No chest pain or shortness of breath. Currently tolerating hydroxychloroquine and azithromycin. Fevers are improving. Objective Last 24 Hour Vital Signs Date Time Temp Pulse Resp B/P (MAP) Pulse Ox O2 Delivery O2 Flow Rate FiO2 11/21/19 06:04 130/70 11/21/19 04:00 98.5 66 18 130/70 (90) 93 11/21/19 04:00 60 11/21/19 04:00 3.0 11/21/19 00:40 146/60 11/21/19 00:00 3.0 11/21/19 00:00 98.0 60 20 130/66 (87) 91 11/21/19 00:00 63 11/20/19 21:00 Nasal Cannula 3.0 11/20/19 20:00 97.9 69 18 134/68 (90) 91 11/20/19 20:00 61 11/20/19 20:00 3.0 11/20/19 17:27 62 137/83 11/20/19 17:26 137/83 11/20/19 16:00 60 11/20/19 16:00 98.2 62 24 137/83 (101) 91 11/20/19 16:00 2.0 11/20/19 12:00 98.0 60 24 95/55 (68) 91 11/20/19 12:00 2.0 11/20/19 12:00 95/55 11/20/19 12:00 60 11/20/19 09:00 60 105/59 11/20/19 09:00 Nasal Cannula 2.0 Intake and Output 11/20/19 11/21/19 19:00 07:00 Intake Total 240 ml Output Total 2 ml Balance 240 ml -2 ml Intake Oral 240 ml Stool Total 2 ml # Voids 2 2 Laboratory Tests 11/21/19 06:30: White Blood Count 3.0L, Red Blood Count 3.00L, Hemoglobin 8.7L, Hematocrit 25.8L , Mean Corpuscular Volume 86, Mean Corpuscular Hemoglobin 29.1, Mean Corpuscular Hemoglobin Concent 33.8, Red Cell Distribution Width 16.7H, Platelet Count 196, Mean Platelet Volume 8.6, Neutrophils (%) (Auto) , Lymphocytes (%) (Auto) , Monocytes (%) (Auto) , Eosinophils (%) (Auto) , Basophils (%) (Auto) , Neutrophils % (Manual) [Pending], Lymphocytes % (Manual) [Pending], Platelet Estimate [Pending], Platelet Morphology [Pending], Sodium Level 143, Potassium Level 4.7, Chloride Level 109H, Carbon Dioxide Level 26, Anion Gap 8, Blood Urea Nitrogen 23H, Creatinine 1.2, Estimat Glomerular Filtration Rate 43.5, Glucose Level 111H, Calcium Level 8.7, Magnesium Level 2.1 , Total Bilirubin 0.4, Aspartate Amino Transf (AST/SGOT) 21, Alanine Aminotransferase (ALT/SGPT) 19, Alkaline Phosphatase 55, Pro-B-Type Natriuretic Peptide 1838H, Total Protein 6.7, Albumin 2.5L, Globulin 4.2, Albumin/Globulin Ratio 0.6L Height (Feet): 5 Height (Inches): 2.00 Weight (Pounds): 120 General Appearance: WD/WN, alert Neck: supple Cardiovascular: regular rhythm Respiratory/Chest: chest wall non-tender, lungs clear, normal breath sounds, no respiratory distress Abdomen: normal bowel sounds, non tender, soft, no organomegaly Edema: no edema noted Arm (L), no edema noted Arm (R), no edema noted Leg (L), no edema noted Leg (R), no edema noted Pedal (L), no edema noted Pedal (R), no edema noted Generalized Bhavesh Ovalle MD Nov 21, 2019 08:39
[2019-11-21] MEDS: Magnesium Oxide 400mg tab ORAL SCH ×2 (09:00→17:26)
[2019-11-21] MEDS: Tamsulosin 0.4mg cap ORAL SCH (09:00)
[2019-11-21] MEDS: Heparin 5000 units/ml inj SUBQ SCH ×2 (09:00→22:26)
[2019-11-21] MEDS: Azithromycin 250mg tab ORAL SCH (09:00)
--- NOTE | 2019-11-21 10:24 | NUR ---
CASE MANAGEMENT:REVIEW 11/21/19 SI: PNA D/T COVID 19 97.8 62 22 151/88 95% ON 3L/NC H/H-8.7/25.8 BUN+23 BNP+1838 IS: IV ZOSYN Q8HRS IVF@70/HR MAG OXIDE PO BID PLAQUENIL PO BID AZITHROMYCIN PO QD (STARTED 11/20/19).....PLAQUENIL PO BID(STARTED 11/20/19) NORVASC PO BID RISPERDAL PO QD FLOMAX PO QD : TELEMETRY STATUS DCP: FROM [facility]
--- NOTE | 2019-11-21 10:36 | NUR ---
DISCHARGE PLANNING PATIENT IS FROM [facility] AND COVID 19 POSITIVE WILL NEED 2 CONSECUTIVE NEGATIVES FOR PATIENT TO RETURN TO SAME SNF OR WILL NEED TO BE PLACED IN A SNF THAT IS ACCEPTING COVID 19 PATIENTS
--- NOTE | 2019-11-21 11:33 | NUR ---
NURSE NOTES:called and spoke to Jade Prieto to notify him that patient is positive for VRE. No new orders at this time.
[2019-11-21 12:00] VITALS: BP 129/73
--- NOTE | 2019-11-21 13:43 | Diagnostic Imaging Report ---
Indication: Cough Technique: One view of the chest Comparison: For 03/01/2020 Findings: Infiltrates, mostly interstitial, are again seen in both mid and lower lungs, appearing equivocally slightly increased on the left, definitely increased on the right. Right upper lobe hyperinflation persists. The bilateral hemidiaphragms appear more obscured, may indicate developing pleural effusions. The heart size is normal. There is left chest pacemaker. Impression: Increasing bilateral mid and lower lung mostly interstitial infiltrates, likely pneumonia, over 3 days Suspect developing bilateral pleural effusions Other findings as noted
--- NOTE | 2019-11-21 14:18 | Infectious Diseases Prog Note ---
Assessment/Plan Assessment/Plan antibiotics : zosyn 4.7.20 - hydroxychloroquine 4.8.20 - azithromycin 4.7.20 - P 1. covid 19 pneumonia 2. e.coli UTI 3. COPD 4. schizophrenia 5. CVA P 1. continue hydroxychloroquine 2 more days 2. continue azithromycin 1 more day 3. d/c zosyn 4. start ceftriaxone, continue 3 more days 5. continue isolation Subjective ROS Limited/Unobtainable: Yes Allergies: Coded Allergies: No Known Allergies (Unverified , 03/14/12) Objective Vital Signs Last 24 Hour Vital Signs Date Time Temp Pulse Resp B/P (MAP) Pulse Ox O2 Delivery O2 Flow Rate FiO2 11/21/19 13:20 129/73 11/21/19 12:00 62 11/21/19 12:00 98.0 60 20 129/73 (91) 96 11/21/19 12:00 3.0 11/21/19 09:00 62 151/88 11/21/19 09:00 Nasal Cannula 3.0 11/21/19 08:00 3.0 11/21/19 08:00 97.8 62 22 151/88 (109) 95 11/21/19 08:00 62 11/21/19 06:04 130/70 11/21/19 04:00 98.5 66 18 130/70 (90) 93 11/21/19 04:00 60 11/21/19 04:00 3.0 11/21/19 00:40 146/60 11/21/19 00:00 3.0 11/21/19 00:00 98.0 60 20 130/66 (87) 91 11/21/19 00:00 63 11/20/19 21:00 Nasal Cannula 3.0 11/20/19 20:00 97.9 69 18 134/68 (90) 91 11/20/19 20:00 61 11/20/19 20:00 3.0 11/20/19 17:27 62 137/83 11/20/19 17:26 137/83 11/20/19 16:00 60 11/20/19 16:00 98.2 62 24 137/83 (101) 91 11/20/19 16:00 2.0 Height (Feet): 5 Height (Inches): 2.00 Weight (Pounds): 120 Respiratory/Chest: lungs clear Cardiovascular: normal rate, regular rhythm, no gallop/murmur Abdomen: soft, non tender Extremities: no edema Microbiology Date/Time Source Procedure Growth Status 11/18/19 20:19 Blood Blood Culture - Preliminary NO GROWTH AFTER 48 HOURS Resulted 11/18/19 20:04 Blood Blood Culture - Preliminary NO GROWTH AFTER 48 HOURS Resulted 11/18/19 21:00 Nasal Nares MRSA Culture - Final NO METHICILLIN RESISTANT STAPH AUREUS... Complete 11/18/19 20:19 Nasopharynx Coronavirus COVID-19 PCR (CHEL) - Final Complete 11/18/19 20:19 Nasal Nares - Final Complete 11/18/19 20:19 Nasal Nares - Final Complete 11/18/19 20:40 Urine,Clean Catch Urine Culture - Final Escherichia Coli Complete 11/18/19 21:00 Rectum - Final NO CARBAPENEM-RESISTANT ENTEROBACTERI... Complete 11/18/19 21:00 Rectum VRE Culture - Final Enterococcus Faecium - Vre Complete Laboratory Tests Test 11/21/19 06:30 White Blood Count 3.0 K/UL (4.8-10.8) L Red Blood Count 3.00 M/UL (4.20-5.40) L Hemoglobin 8.7 G/DL (12.0-16.0) L Hematocrit 25.8 % (37.0-47.0) L Mean Corpuscular Volume 86 FL (80-99) Mean Corpuscular Hemoglobin 29.1 PG (27.0-31.0) Mean Corpuscular Hemoglobin Concent 33.8 G/DL (32.0-36.0) Red Cell Distribution Width 16.7 % (11.6-14.8) H Platelet Count 196 K/UL (150-450) Mean Platelet Volume 8.6 FL (6.5-10.1) Neutrophils (%) (Auto) % (45.0-75.0) Lymphocytes (%) (Auto) % (20.0-45.0) Monocytes (%) (Auto) % (1.0-10.0) Eosinophils (%) (Auto) % (0.0-3.0) Basophils (%) (Auto) % (0.0-2.0) Differential Total Cells Counted 100 Neutrophils % (Manual) 67 % (45-75) Lymphocytes % (Manual) 24 % (20-45) Monocytes % (Manual) 7 % (1-10) Eosinophils % (Manual) 2 % (0-3) Basophils % (Manual) 0 % (0-2) Band Neutrophils 0 % (0-8) Platelet Estimate Adequate Platelet Morphology Normal Anisocytosis 1+ Sodium Level 143 MMOL/L (136-145) Potassium Level 4.7 MMOL/L (3.5-5.1) Chloride Level 109 MMOL/L (98-107) H Carbon Dioxide Level 26 MMOL/L (21-32) Anion Gap 8 mmol/L (5-15) Blood Urea Nitrogen 23 mg/dL (7-18) H Creatinine 1.2 MG/DL (0.55-1.30) Estimat Glomerular Filtration Rate 43.5 mL/min (>60) Glucose Level 111 MG/DL (74-106) H Calcium Level 8.7 MG/DL (8.5-10.1) Magnesium Level 2.1 MG/DL (1.8-2.4) Total Bilirubin 0.4 MG/DL (0.2-1.0) Aspartate Amino Transf (AST/SGOT) 21 U/L (15-37) Alanine Aminotransferase (ALT/SGPT) 19 U/L (12-78) Alkaline Phosphatase 55 U/L (46-116) Pro-B-Type Natriuretic Peptide 1838 pg/mL (0-125) H Total Protein 6.7 G/DL (6.4-8.2) Albumin 2.5 G/DL (3.4-5.0) L Globulin 4.2 g/dL Albumin/Globulin Ratio 0.6 (1.0-2.7) L Current Medications Medications (Trade) Dose Ordered Sig/David Route PRN Reason Start Time Stop Time Status Last Admin Dose Admin Acetaminophen (Tylenol) 650 mg Q6H PRN ORAL Mild Pain (Pain Scale 1-3) 11/18/19 21:30 12/18/19 21:29 11/19/19 12:19 Albuterol Sulfate (Proventil MDI) 2 puff Q4H PRN INH Shortness of Breath 11/18/19 21:30 02/16/20 21:29 Amlodipine Besylate (Norvasc) 5 mg BID ORAL 11/19/19 09:00 12/19/19 08:59 11/21/19 09:00 Azithromycin (Zithromax) 250 mg DAILY ORAL 11/20/19 09:00 11/23/19 09:01 11/21/19 09:00 Clonidine HCl (Catapres Tab) 0.1 mg EVERY 6 HOURS ORAL 11/19/19 00:00 02/17/20 00:00 11/21/19 13:20 Dextrose/ Electrolytes 1,000 ml @ 70 mls/hr [id number] IV 11/19/19 08:00 12/18/19 07:59 11/21/19 00:49 Heparin Sodium (Porcine) (Heparin 5000 units/ml) 5,000 units BID@0900,2100 SUBQ 11/19/19 09:00 01/03/20 08:59 11/21/19 09:00 Hydralazine HCl (Apresoline) 10 mg Q6H PRN ORAL PRN SBP>160 11/19/19 12:45 02/17/20 12:44 Hydroxychloroquine Sulfate (Plaquenil) 200 mg BID ORAL 11/20/19 09:00 11/23/19 18:01 11/21/19 09:00 Magnesium Oxide (Mag-Ox 400mg) 400 mg BID ORAL 11/20/19 18:00 12/20/19 17:59 11/21/19 09:00 Piperacillin Sod/ Tazobactam Sod 3.375 gm/Sodium Chloride 110 ml @ 27.5 mls/hr EVERY 8 HOURS IVPB 11/18/19 23:00 11/23/19 22:59 11/21/19 13:20 Risperidone (RisperDAL) 2 mg DAILY ORAL 11/19/19 09:00 01/03/20 08:59 11/21/19 09:00 Tamsulosin HCl (Flomax) 0.4 mg DAILY ORAL 11/19/19 09:00 12/19/19 08:59 11/21/19 09:00 Marcela Zafar MD Nov 21, 2019 14:18
[2019-11-21] MEDS: cefTRIAXone 1 GM in D5W 55 ML IVPB SCH (14:58)
[2019-11-21 16:00] VITALS: BP 133/75
--- NOTE | 2019-11-21 17:34 | NUR ---
NURSE NOTES:Patient taking hydroxychloroquinolone, educated patient on risks of treatment and gave patient handout on medication. warned patient that some uncommon side effects include irregular heartbeat, convulsions and seizures. Patient is aphasic, unable to verbalize understanding. Tried to feed patient dinner but she put her hand up and indicated she did not want to eat, offered hydration and patient drank lemonade and soda.
--- NOTE | 2019-11-21 19:53 | NUR ---
HAND-OFF: Report given to CONNER Corcoran. Pt in stable condition; plan of care endorsed.
[2019-11-21 20:00] VITALS: BP 123/75
--- NOTE | 2019-11-21 20:16 | NUR ---
NURSE NOTES: Received patient report from CONNER Flowers. Patient shows no signs of distress or pain at this time. IV checked, patent and flushed. There are no signs of erythema, bleeding, or infiltration. Patients bed in the lowest position, call light within reach, side rails up x3, and bed brakes up. Will continue plan of care.
[2019-11-22] VITALS: BP 114/75
--- NOTE | 2019-11-22 01:15 | Progress Note ---
DATE: 11/21/2019 CARDIOLOGY PROGRESS NOTE SUBJECTIVE: The patient is in no distress on isolation, nasal cannula oxygen delivery, mild hypoxia 91% on 3 liters. Currently on day #3 of hydroxychloroquine and azithromycin. OBJECTIVE: LUNGS: Few rhonchi. HEART: Regular rhythm rate. Normal S1 and S2. ABDOMEN: Soft. EXTREMITIES: No edema. LABORATORY AND DIAGNOSTIC DATA: Monitored rhythm with intermittent pacing, QTc interval beats less than 450 milliseconds. Potassium 4.7, magnesium 2.1. Natriuretic peptide 1838 IMPRESSION: 1. COVID-19 pneumonia. 2. Permanent pacemaker. 3. Cerebrovascular disease. 4. Chronic obstructive pulmonary disease. 5. Hypertensive chronic kidney disease. 6. Hypoxia. 7. Acute on chronic diastolic congestive heart failure. PLAN: 1. Isolation for COVID-19. 2. Nasal oxygen. 3. Cardiac monitoring. 4. Complete course of azithromycin and hydroxychloroquine. 5. Observe for increasing to QTc intervals. 6. Monitor electrolytes including especially potassium and magnesium levels and replace accordingly. 7. Cautious diuresis. 8. Pleural effusion. Hadley Rowland M.D. DR: Peterson JOB#: [id number] CC:
--- NOTE | 2019-11-22 02:30 | Consultation ---
DATE OF CONSULTATION: 11/18/2019 CONSULTING PHYSICIAN: Hadley Rowland M.D. REQUESTING PHYSICIAN: Bhavesh Ovalle M.D. REASON FOR CONSULTATION: Cardiovascular evaluation in the setting of COVID-19 pneumonia. HISTORY OF PRESENT ILLNESS: This is a 79-year-old female. She has a permanent pacemaker as well as hypertensive heart disease. She was transferred from a half-way facility with weakness and fatigued, and has been exposed to several patients at the facility who have tested positive for COVID-19. In the emergency room, the patient was noted to be febrile and hypoxic. She was placed on nasal oxygen and noted to have bilateral infiltrates on her chest radiograph. Her primary care physician is considering hydroxychloroquine and azithromycin therapy. I have been asked to address cardiovascular risks. PAST MEDICAL HISTORY: Hypertension, chronic obstructive pulmonary disease, permanent pacemaker, chronic kidney disease, cerebrovascular disease, history of cerebrovascular accident, bipolar disorder, Parkinson disease, osteoarthritis, and degenerative disk disease. ALLERGIES: None. FAMILY HISTORY: Noncontributory. SOCIAL HISTORY: Negative for recent smoking, alcohol, or substance abuse. There is a very distant smoking history. REVIEW OF SYSTEMS: No history of myocardial infarction. No complaints of exertional chest pain. No leg swelling. No shortness of breath. No orthopnea. Echocardiogram in the last 6 months revealed a normal ejection fraction with mild degenerative valve disease. Her permanent pacemaker was interrogated in the last three months and noted to be functioning appropriately. PHYSICAL EXAMINATION: VITAL SIGNS: Temperature 101.1, blood pressure 145/84, heart rate 87, respiratory rate 20, oxygen saturation on 2 liters 94%. NECK: Temporal wasting ___. Jugular venous pressure normal. No accessory muscle use. LUNGS: Few rhonchi. CARDIAC: Regular rhythm and rate. Normal S1, paradoxically split S2. ABDOMEN: Soft. EXTREMITIES: No edema. NEUROLOGIC: There is an essential tremor. LABORATORY DATA: Magnesium is 2 and potassium 4.6. EKG reveals atrial pacing and QTc interval of 425 millisecond on a non-paced beat. IMPRESSION: This is a 79-year-old female with probable COVID-19 pneumonia complicated so far by hypoxia. In addition a urinary tract infection is noted. While the patient does have underlying hypertensive heart disease, conduction system disease, and a permanent pacemaker, her current electrocardiogram and clinical parameters do not put her at significantly increased risk for treatment with azithromycin and hydroxychloroquine in view of the potential for severe COVID-19 pneumonia and progression in this setting. Therapy can be started with close monitoring of electrolytes including potassium, magnesium, and cardiac monitoring with regular assessment of QTc interval. Hadley Rowland M.D. DR: MELISSA JOB#: [id number] CC:
[2019-11-22 04:00] VITALS: BP 124/80
--- NOTE | 2019-11-22 07:42 | NUR ---
HAND-OFF: Report given to CONNER Woods. Patient in stable condition. Endorsed plan of care.
--- NOTE | 2019-11-22 07:47 | NUR ---
NURSE NOTES: Received report from CONNER Urrutia. Patient in bed resting, no active s/s cardiac, respiratory distress noticed at this time. Patient Aox0-1, non-verbal, occasionally open eyes. SR with A-paced with HR 60, on 4L oxygen via NC. IV on left AC 20G, Left FA 24G, asymptomatic, patent, intact. Bed in lowest position, side rails upx2, call light within reach, bed alarm on. Will continue to monitor.
[2019-11-22 08:00] VITALS: BP 136/82
[2019-11-22] MEDS: Azithromycin 250mg tab ORAL SCH (08:43)
[2019-11-22] MEDS: Magnesium Oxide 400mg tab ORAL SCH ×2 (08:44→17:24)
[2019-11-22] MEDS: Tamsulosin 0.4mg cap ORAL SCH (08:44)
[2019-11-22] MEDS: Heparin 5000 units/ml inj SUBQ SCH ×2 (08:45→20:44)
[2019-11-22 09:54] LABS: ANION GAP 11 mmol/L (5-15); BLOOD UREA NITROGEN 19 mg/dL (7-18); CALCIUM 8.7 MG/DL (8.5-10.1); CARBON DIOXIDE 25 MMOL/L (21-32); CHLORIDE 107 MMOL/L (98-107); POTASSIUM 4.3 MMOL/L (3.5-5.1); SODIUM 143 MMOL/L (136-145)
--- NOTE | 2019-11-22 11:54 | Infectious Diseases Prog Note ---
Assessment/Plan Assessment/Plan antibiotics : ceftriaxone hydroxychloroquine 4.8.20 - azithromycin 4.7.20 - P 1. covid 19 pneumonia 2. e.coli UTI 3. COPD 4. schizophrenia 5. CVA P 1. continue hydroxychloroquine 1 more day 2. d/c azithromycin 3. continue ceftriaxone 2 more days 4. continue isolation Subjective ROS Limited/Unobtainable: Yes Allergies: Coded Allergies: No Known Allergies (Unverified , 03/14/12) Objective Vital Signs Last 24 Hour Vital Signs Date Time Temp Pulse Resp B/P (MAP) Pulse Ox O2 Delivery O2 Flow Rate FiO2 11/22/19 09:34 62 136/82 11/22/19 09:00 Nasal Cannula 3.0 11/22/19 08:00 97.0 61 19 136/82 (100) 91 11/22/19 08:00 60 11/22/19 05:56 124/80 11/22/19 04:00 60 11/22/19 04:00 97.2 62 19 124/80 (95) 92 11/22/19 00:00 96.7 62 20 114/75 (88) 92 11/22/19 00:00 114/75 11/22/19 00:00 60 11/21/19 21:00 Nasal Cannula 3.0 11/21/19 20:00 97.8 67 20 123/75 (91) 92 11/21/19 17:27 133/75 11/21/19 17:27 62 133/75 11/21/19 16:00 62 11/21/19 16:00 3.0 11/21/19 16:00 98.1 59 20 133/75 (94) 95 11/21/19 13:20 129/73 11/21/19 12:00 62 11/21/19 12:00 98.0 60 20 129/73 (91) 96 11/21/19 12:00 3.0 Height (Feet): 5 Height (Inches): 2.00 Weight (Pounds): 120 Laboratory Tests Test 11/22/19 09:30 Sodium Level 143 MMOL/L (136-145) Potassium Level 4.3 MMOL/L (3.5-5.1) Chloride Level 107 MMOL/L (98-107) Carbon Dioxide Level 25 MMOL/L (21-32) Anion Gap 11 mmol/L (5-15) Blood Urea Nitrogen 19 mg/dL (7-18) H Creatinine 1.0 MG/DL (0.55-1.30) Estimat Glomerular Filtration Rate 53.6 mL/min (>60) Glucose Level 127 MG/DL (74-106) H Calcium Level 8.7 MG/DL (8.5-10.1) Magnesium Level 1.8 MG/DL (1.8-2.4) Current Medications Medications (Trade) Dose Ordered Sig/David Route PRN Reason Start Time Stop Time Status Last Admin Dose Admin Acetaminophen (Tylenol) 650 mg Q6H PRN ORAL Mild Pain (Pain Scale 1-3) 11/18/19 21:30 12/18/19 21:29 11/19/19 12:19 Albuterol Sulfate (Proventil MDI) 2 puff Q4H PRN INH Shortness of Breath 11/18/19 21:30 02/16/20 21:29 Amlodipine Besylate (Norvasc) 5 mg BID ORAL 11/19/19 09:00 12/19/19 08:59 11/22/19 09:34 Azithromycin (Zithromax) 250 mg DAILY ORAL 11/20/19 09:00 11/23/19 09:01 11/22/19 08:43 Ceftriaxone Sodium 1 gm/ Dextrose 55 ml @ 110 mls/hr Q24H IVPB 11/21/19 15:00 11/28/19 14:59 11/21/19 14:58 Clonidine HCl (Catapres Tab) 0.1 mg EVERY 6 HOURS ORAL 11/19/19 00:00 02/17/20 00:00 11/22/19 05:56 Dextrose/ Electrolytes 1,000 ml @ 70 mls/hr [id number] IV 11/19/19 08:00 12/18/19 07:59 11/21/19 17:27 Heparin Sodium (Porcine) (Heparin 5000 units/ml) 5,000 units BID@0900,2100 SUBQ 11/19/19 09:00 01/03/20 08:59 11/22/19 08:45 Hydralazine HCl (Apresoline) 10 mg Q6H PRN ORAL PRN SBP>160 11/19/19 12:45 02/17/20 12:44 Hydroxychloroquine Sulfate (Plaquenil) 200 mg BID ORAL 11/20/19 09:00 11/23/19 18:01 11/22/19 08:43 Magnesium Oxide (Mag-Ox 400mg) 400 mg BID ORAL 11/20/19 18:00 12/20/19 17:59 11/22/19 08:44 Risperidone (RisperDAL) 2 mg DAILY ORAL 11/19/19 09:00 01/03/20 08:59 11/22/19 08:43 Tamsulosin HCl (Flomax) 0.4 mg DAILY ORAL 11/19/19 09:00 12/19/19 08:59 11/22/19 08:44 Marcela Zafar MD Nov 22, 2019 11:54
[2019-11-22 12:00] VITALS: BP 141/75
--- NOTE | 2019-11-22 12:35 | General Progress Note ---
Assessment/Plan Problem List: (1) CKD (chronic kidney disease) stage 1, GFR 90 ml/min or greater ICD Codes: N18.1 - Chronic kidney disease, stage 1 SNOMED: 729706403 (2) CVA (cerebral vascular accident) ICD Codes: I63.9 - Cerebral infarction, unspecified SNOMED: 675612044 (3) Encephalopathy acute ICD Codes: G93.40 - Encephalopathy acute SNOMED: 3486927 (4) DINA (acute kidney injury) ICD Codes: N17.9 - DINA (acute kidney injury) SNOMED: 25088237 (5) Pneumonia due to COVID-19 virus ICD Codes: U07.1 - COVID-19; J12.89 - Other viral pneumonia SNOMED: 537139016, 613930322 Status: stable, progressing Assessment/Plan: Continue supplemental oxygen as needed. Coronavirus treatment per ID. Antiplatelet treatment. Monitor lites and renal function. Monitor EKG for QT prolongation. repeat cxr noted. ?chf. added daily lasix. keep dry. Cardiology and infectious disease follow-up. dvt and stress ulcer prophylaxis. Plan of care discussed with patient at the bedside. Patient agrees with plan of care Subjective ROS Limited/Unobtainable: No Constitutional: Reports: malaise, weakness HEENT: Reports: no symptoms Cardiovascular: Reports: no symptoms Respiratory: Reports: cough, shortness of breath Gastrointestinal/Abdominal: Reports: no symptoms Genitourinary: Reports: no symptoms Neurologic/Psychiatric: Reports: pre-existing deficit Endocrine: Reports: no symptoms Hematologic/Lymphatic: Reports: anemia Allergies: Coded Allergies: No Known Allergies (Unverified , 03/14/12) All Systems: reviewed and negative except above Subjective There have been no overnight events. Patient remains in isolation for coronavirus. She remains on 3 L of oxygen via nasal cannula. No chest pain or shortness of breath. Currently tolerating hydroxychloroquine and azithromycin. Fevers are improving. Chest x-ray shows worsening infiltrates. Objective Last 24 Hour Vital Signs Date Time Temp Pulse Resp B/P (MAP) Pulse Ox O2 Delivery O2 Flow Rate FiO2 11/22/19 09:34 62 136/82 11/22/19 09:00 Nasal Cannula 3.0 11/22/19 08:00 97.0 61 19 136/82 (100) 91 11/22/19 08:00 60 11/22/19 05:56 124/80 11/22/19 04:00 60 11/22/19 04:00 97.2 62 19 124/80 (95) 92 11/22/19 00:00 96.7 62 20 114/75 (88) 92 11/22/19 00:00 114/75 11/22/19 00:00 60 11/21/19 21:00 Nasal Cannula 3.0 11/21/19 20:00 97.8 67 20 123/75 (91) 92 11/21/19 17:27 133/75 11/21/19 17:27 62 133/75 11/21/19 16:00 62 11/21/19 16:00 3.0 11/21/19 16:00 98.1 59 20 133/75 (94) 95 11/21/19 13:20 129/73 Intake and Output 11/21/19 11/22/19 19:00 07:00 Intake Total 300 ml Balance 300 ml Intake Oral 300 ml # Voids 2 2 Laboratory Tests 11/22/19 09:30: Sodium Level 143, Potassium Level 4.3, Chloride Level 107, Carbon Dioxide Level 25, Anion Gap 11, Blood Urea Nitrogen 19H, Creatinine 1.0, Estimat Glomerular Filtration Rate 53.6, Glucose Level 127H, Calcium Level 8.7, Magnesium Level 1.8 Height (Feet): 5 Height (Inches): 2.00 Weight (Pounds): 120 Objective General Appearance: WD/WN, alert Neck: supple Cardiovascular: regular rhythm Respiratory/Chest: chest wall non-tender, lungs clear, normal breath sounds, no respiratory distress Abdomen: normal bowel sounds, non tender, soft, no organomegaly Edema: no edema noted Arm (L), no edema noted Arm (R), no edema noted Leg (L), no edema noted Leg (R), no edema noted Pedal (L), no edema noted Pedal (R), no edema noted Generalized Bhavesh Ovalle MD Nov 22, 2019 12:35
[2019-11-22] MEDS: cefTRIAXone 1 GM in D5W 55 ML IVPB SCH (15:11)
[2019-11-22 16:00] VITALS: BP 124/66
--- NOTE | 2019-11-22 19:15 | NUR ---
HAND-OFF: Report given to CONNER Urrutia. Endorsed plan of care.
[2019-11-22 20:00] VITALS: BP 125/68
[2019-11-23] VITALS: BP 133/77
--- NOTE | 2019-11-23 03:15 | Progress Note ---
DATE: 11/22/2019 CARDIOLOGY PROGRESS NOTE SUBJECTIVE: The patient is on day #3 of hydroxychloroquine and azithromycin for COVID-19 pneumonia. She is defervesced. Oxygen saturations are 91% on 3 liters nasal cannula. She still has cough and congestion. She remains on isolation, obviously monitored rhythm sinus with demand pacing. OBJECTIVE: LUNGS: Bilateral breath sounds. Rhonchi. CARDIAC: Irregular rhythm and rate. Normal S1, S2. ABDOMEN: Soft. EXTREMITIES: No edema. Exam is limited due to isolation. LABORATORY DATA: Potassium 4.3, magnesium 1.8. IMPRESSION: 1. Stable with regard to cardiovascular parameters, on hydroxychloroquine and azithromycin. 2. Pacemaker with stable function. 3. COVID-19 pneumonia. PLAN: 1. Continue current management. 2. Observe for QTc prolongation on current regimen with assessment to be made with [place] rather than paced ventricular beats. 3. Continue to monitor electrolytes, volume status, and cardiorenal function with adjustments as needed. Hadley Rowland M.D. DR: MANUEL JOB#: [id number] CC:
[2019-11-23 04:00] VITALS: BP 128/78
[2019-11-23 06:35] LABS: ANION GAP 9 mmol/L (5-15); BLOOD UREA NITROGEN 24 mg/dL (7-18); CALCIUM 8.9 MG/DL (8.5-10.1); CARBON DIOXIDE 27 MMOL/L (21-32); CHLORIDE 106 MMOL/L (98-107); CREATININE 1.2 MG/DL (0.55-1.30); POTASSIUM 4.3 MMOL/L (3.5-5.1); SODIUM 142 MMOL/L (136-145)
--- NOTE | 2019-11-23 07:28 | NUR ---
NURSE NOTES: Received report from CONNER Urrutia. Patient in bed resting, no active s/s cardiac, respiratory distress noticed at this time. Patient AOx0, nonverbal, occasionally open eyes spontaneously. SR with A-paced, HR 60. IV on left AC 20G, left FA 24G, asymptomatic, patent, intact. Bed in lowest position, side rails upx3, call light within reach, bed alarm on. Will continue to monitor.
[2019-11-23 08:00] VITALS: BP 105/50
--- NOTE | 2019-11-23 08:17 | NUR ---
HAND-OFF: Report given to CONNER Woods. Patient in stable condition. Endorsed plan of care.
--- NOTE | 2019-11-23 08:53 | General Progress Note ---
Assessment/Plan Problem List: (1) CKD (chronic kidney disease) stage 1, GFR 90 ml/min or greater ICD Codes: N18.1 - Chronic kidney disease, stage 1 SNOMED: 276721876 (2) CVA (cerebral vascular accident) ICD Codes: I63.9 - Cerebral infarction, unspecified SNOMED: 866523586 (3) Encephalopathy acute ICD Codes: G93.40 - Encephalopathy acute SNOMED: 3212985 (4) DINA (acute kidney injury) ICD Codes: N17.9 - DINA (acute kidney injury) SNOMED: 04561169 (5) Pneumonia due to COVID-19 virus ICD Codes: U07.1 - COVID-19; J12.89 - Other viral pneumonia SNOMED: 092698709, 970170784 Status: stable, progressing Assessment/Plan: Continue supplemental oxygen as needed. Coronavirus treatment per ID. Antiplatelet treatment. Monitor lites and renal function. Monitor EKG for QT prolongation. repeat cxr noted. ?chf. added daily lasix. keep dry. Cardiology and infectious disease follow-up. dvt and stress ulcer prophylaxis. repeat covid swab tomorrow. Plan of care discussed with patient at the bedside. Patient agrees with plan of care Subjective ROS Limited/Unobtainable: No Constitutional: Reports: malaise, weakness HEENT: Reports: no symptoms Cardiovascular: Reports: no symptoms Respiratory: Reports: cough Gastrointestinal/Abdominal: Reports: no symptoms Genitourinary: Reports: no symptoms Neurologic/Psychiatric: Reports: anxiety, depressed, emotional problems Endocrine: Reports: no symptoms Hematologic/Lymphatic: Reports: no symptoms Allergies: Coded Allergies: No Known Allergies (Unverified , 03/14/12) All Systems: reviewed and negative except above Subjective There have been no overnight events. Patient remains in isolation for coronavirus. She remains on 3 L of oxygen via nasal cannula. No chest pain or shortness of breath. Currently tolerating hydroxychloroquine and azithromycin. Fevers are improving. mg and k ok today Objective Last 24 Hour Vital Signs Date Time Temp Pulse Resp B/P (MAP) Pulse Ox O2 Delivery O2 Flow Rate FiO2 11/23/19 06:49 128/78 11/23/19 04:00 68 11/23/19 04:00 97.5 67 20 128/78 (95) 97 11/23/19 01:18 133/77 11/23/19 00:00 97.5 62 19 133/77 (95) 91 11/23/19 00:00 60 11/22/19 21:00 Nasal Cannula 3.0 11/22/19 20:00 97.0 62 20 125/68 (87) 90 11/22/19 20:00 60 11/22/19 17:24 60 124/66 11/22/19 17:23 124/66 11/22/19 16:00 97.9 60 19 124/66 (85) 91 11/22/19 16:00 60 11/22/19 13:10 141/75 11/22/19 12:00 97.2 62 19 141/75 (97) 91 11/22/19 12:00 60 11/22/19 09:34 62 136/82 11/22/19 09:00 Nasal Cannula 3.0 Intake and Output 11/22/19 11/23/19 19:00 07:00 Intake Total 320 ml Balance 320 ml Intake Oral 320 ml # Voids 2 2 Laboratory Tests 11/22/19 09:30: Sodium Level 143, Potassium Level 4.3, Chloride Level 107, Carbon Dioxide Level 25, Anion Gap 11, Blood Urea Nitrogen 19H, Creatinine 1.0, Estimat Glomerular Filtration Rate 53.6, Glucose Level 127H, Calcium Level 8.7, Magnesium Level 1.8 11/23/19 05:15: Sodium Level 142, Potassium Level 4.3, Chloride Level 106, Carbon Dioxide Level 27, Anion Gap 9, Blood Urea Nitrogen 24H, Creatinine 1.2, Estimat Glomerular Filtration Rate 43.5, Glucose Level 98, Calcium Level 8.9, Magnesium Level 2.0 Height (Feet): 5 Height (Inches): 2.00 Weight (Pounds): 120 Objective General Appearance: WD/WN, alert Neck: supple Cardiovascular: regular rhythm Respiratory/Chest: chest wall non-tender, lungs clear, normal breath sounds, no respiratory distress Abdomen: normal bowel sounds, non tender, soft, no organomegaly Edema: no edema noted Arm (L), no edema noted Arm (R), no edema noted Leg (L), no edema noted Leg (R), no edema noted Pedal (L), no edema noted Pedal (R), no edema noted Generalized Bhavesh Ovalle MD Nov 23, 2019 08:53
[2019-11-23] MEDS: Magnesium Oxide 400mg tab ORAL SCH ×2 (09:12→17:39)
[2019-11-23] MEDS: Tamsulosin 0.4mg cap ORAL SCH (09:12)
[2019-11-23] MEDS: Heparin 5000 units/ml inj SUBQ SCH ×2 (09:26→20:43)
[2019-11-23 12:00] VITALS: BP 106/63
--- NOTE | 2019-11-23 13:18 | NUR ---
RD ASSESSMENT & RECOMMENDATIONS SEE CARE ACTIVITY FOR COMPLETE ASSESSMENT DAILY ESTIMATED NEEDS: Needs based on cardiac, pulmonary 57kg 25-30 kcals/kg [id number] total kcals 1-1.5 g protein/kg 57-86 g total protein Fluid per MD, on lasix NUTRITION DIAGNOSIS: Swallowing difficulty r/t h/o CVA as evidenced by pt on ms finely chopped texture diet. CURRENT DIET: Regular ms finely chopped PO DIET RECOMMENDATIONS: Maintain liberalized regular diet w/ poor to variable po intake ADDITIONAL RECOMMENDATIONS: 1) STARCHMAKER eval for appropriate texture 2) On lasix, obtain accurate daily wts + monitor lytes daily 3) Ensure BID with poor to variable po intake
--- NOTE | 2019-11-23 13:46 | Infectious Diseases Prog Note ---
Assessment/Plan Assessment/Plan A; 1. Pneumonia with COVID19 2. History of schizophrenia. 3. Stroke. 4. COPD. 5. E. coli UTI PLAN: 1. Continue Ceftriaxone X 1 day 2. Continue hydroxychloroquine until tonight 3. We will follow up the patient clinically. Subjective ROS Limited/Unobtainable: Yes Constitutional: Denies: fever Allergies: Coded Allergies: No Known Allergies (Unverified , 03/14/12) Objective Vital Signs Last 24 Hour Vital Signs Date Time Temp Pulse Resp B/P (MAP) Pulse Ox O2 Delivery O2 Flow Rate FiO2 11/23/19 12:00 106/63 11/23/19 12:00 60 11/23/19 12:00 96.9 60 20 106/63 (77) 92 11/23/19 09:00 60 105/50 11/23/19 09:00 Nasal Cannula 3.0 11/23/19 08:00 60 11/23/19 08:00 96.9 60 20 105/50 (68) 92 11/23/19 06:49 128/78 11/23/19 04:00 68 11/23/19 04:00 97.5 67 20 128/78 (95) 97 11/23/19 01:18 133/77 11/23/19 00:00 97.5 62 19 133/77 (95) 91 11/23/19 00:00 60 11/22/19 21:00 Nasal Cannula 3.0 11/22/19 20:00 97.0 62 20 125/68 (87) 90 11/22/19 20:00 60 11/22/19 17:24 60 124/66 11/22/19 17:23 124/66 11/22/19 16:00 97.9 60 19 124/66 (85) 91 11/22/19 16:00 60 Height (Feet): 5 Height (Inches): 2.00 Weight (Pounds): 120 General Appearance: no acute distress HEENT: mucous membranes moist Respiratory/Chest: lungs clear, other - oxygen by nasal cannula Cardiovascular: normal rate Abdomen: soft, non tender Extremities: no edema Neurologic/Psychiatric: disoriented Laboratory Tests Test 11/23/19 05:15 Sodium Level 142 MMOL/L (136-145) Potassium Level 4.3 MMOL/L (3.5-5.1) Chloride Level 106 MMOL/L (98-107) Carbon Dioxide Level 27 MMOL/L (21-32) Anion Gap 9 mmol/L (5-15) Blood Urea Nitrogen 24 mg/dL (7-18) H Creatinine 1.2 MG/DL (0.55-1.30) Estimat Glomerular Filtration Rate 43.5 mL/min (>60) Glucose Level 98 MG/DL (74-106) Calcium Level 8.9 MG/DL (8.5-10.1) Magnesium Level 2.0 MG/DL (1.8-2.4) Current Medications Medications (Trade) Dose Ordered Sig/David Route PRN Reason Start Time Stop Time Status Last Admin Dose Admin Acetaminophen (Tylenol) 650 mg Q6H PRN ORAL Mild Pain (Pain Scale 1-3) 11/18/19 21:30 12/18/19 21:29 11/19/19 12:19 Albuterol Sulfate (Proventil MDI) 2 puff Q4H PRN INH Shortness of Breath 11/18/19 21:30 02/16/20 21:29 Amlodipine Besylate (Norvasc) 5 mg BID ORAL 11/19/19 09:00 12/19/19 08:59 11/22/19 17:24 Ceftriaxone Sodium 1 gm/ Dextrose 55 ml @ 110 mls/hr Q24H IVPB 11/21/19 15:00 11/28/19 14:59 11/22/19 15:11 Clonidine HCl (Catapres Tab) 0.1 mg EVERY 6 HOURS ORAL 11/19/19 00:00 02/17/20 00:00 11/23/19 06:49 Furosemide (Lasix) 20 mg DAILY IV 11/22/19 12:45 12/22/19 12:44 11/23/19 09:12 Heparin Sodium (Porcine) (Heparin 5000 units/ml) 5,000 units BID@0900,2100 SUBQ 11/19/19 09:00 01/03/20 08:59 11/23/19 09:26 Hydralazine HCl (Apresoline) 10 mg Q6H PRN ORAL PRN SBP>160 11/19/19 12:45 02/17/20 12:44 Hydroxychloroquine Sulfate (Plaquenil) 200 mg BID ORAL 11/20/19 09:00 11/23/19 18:01 11/23/19 09:12 Magnesium Oxide (Mag-Ox 400mg) 400 mg BID ORAL 11/20/19 18:00 12/20/19 17:59 11/23/19 09:12 Risperidone (RisperDAL) 2 mg DAILY ORAL 11/19/19 09:00 01/03/20 08:59 11/23/19 09:12 Tamsulosin HCl (Flomax) 0.4 mg DAILY ORAL 11/19/19 09:00 12/19/19 08:59 11/23/19 09:12 Eleazar Prieto MD Nov 23, 2019 13:46
[2019-11-23] MEDS ORDERED: Tubing IV Secondary IV ONE (14:22)
[2019-11-23] MEDS: cefTRIAXone 1 GM in D5W 55 ML IVPB SCH (15:18)
[2019-11-23 16:00] VITALS: BP 125/51
--- NOTE | 2019-11-23 19:35 | NUR ---
HAND-OFF: Report given to CONNER Urrutia. Endorsed plan of care.
[2019-11-23 20:00] VITALS: BP 134/77
--- NOTE | 2019-11-23 20:12 | NUR ---
NURSE NOTES: Received report from CONNER Woods. Patient AO x 1. Shows no signs of distress or pain at the time. IV checked and flushed and patents. There are no signs of erythema, infiltration, or bleeding. Bed is in the lowest position, call light is within reach, bed alarm on, will be sitting close to patients room. Will continue plan of care.
[2019-11-24] VITALS: BP 126/77
[2019-11-24 04:00] VITALS: BP 117/68
--- NOTE | 2019-11-24 07:11 | NUR ---
NURSE NOTES: Dr. Ovalle at the nursing station, made aware no BM since 11/19, no new order given at this time, per MD will put order. Will continue to monitor.
--- NOTE | 2019-11-24 07:20 | NUR ---
NURSE NOTES: Received report from CONNER Urrutia. Patient in bed resting, no active s/s cardiac, respiratory distress noticed at this time. Patient AOx0-1, occasionally open eyes spontaneously, aphasia, on 4L oxygen via NC. IV on left AC 20G, left FA 24G, asymptomatic, patent, intact. Endorsed pending COVID specimen due to no resource available during the warehouse supervisor 3rd shift, will call coin machine collector supervisor. Bed in lowest position, side rails upx2, call light within reach, bed alarm on. Will continue to monitor.
--- NOTE | 2019-11-24 07:30 | Progress Note ---
DATE: 11/23/2019 CARDIOLOGY PROGRESS NOTE SUBJECTIVE: The patient remains on anti-viral therapy for coronavirus, to a COVID-19 infection, 3 liters nasal cannula with adequate saturation, hydroxychloroquine and azithromycin combination. Monitored rhythm paced. PHYSICAL EXAMINATION: LUNGS: Bilateral breath sounds. Rhonchi. CARDIAC: Regular rhythm and rate. Normal S1, S2. ABDOMEN: Soft. EXTREMITIES: No edema. LABORATORY DATA: Sodium 142, potassium 4.3, BUN 24, creatinine 1.2. Magnesium 2.0. IMPRESSION: 1. COVID-19 pneumonia. 2. Pacemaker. 3. Hypertensive heart disease. 4. COPD. 5. Hypoxia. 6. E. coli urinary tract infection, sepsis. 7. Acute diastolic congestive heart failure. PLAN: 1. Antimicrobial therapy per Infectious Disease data communications software consultant. 2. Monitor electrolytes and replace accordingly. 3. Continue monitoring of QTc interval, which is presently stable on hydroxychloroquine combination regimen. 4. Monitor volume status. 5. Recheck chest radiograph. 6. Periodic diuresis based on clinical parameters. Hadley Rowland M.D. DR: CAROL JOB#: [id number] CC:
--- NOTE | 2019-11-24 07:31 | NUR ---
HAND-OFF: Report given to CONNER Woods. Patient shows no signs of distress at the time. Endorsed plan of care. .
--- NOTE | 2019-11-24 07:55 | General Progress Note ---
Assessment/Plan Problem List: (1) CKD (chronic kidney disease) stage 1, GFR 90 ml/min or greater ICD Codes: N18.1 - Chronic kidney disease, stage 1 SNOMED: 540555546 (2) CVA (cerebral vascular accident) ICD Codes: I63.9 - Cerebral infarction, unspecified SNOMED: 159347281 (3) Encephalopathy acute ICD Codes: G93.40 - Encephalopathy acute SNOMED: 7119728 (4) DINA (acute kidney injury) ICD Codes: N17.9 - DINA (acute kidney injury) SNOMED: 78645389 (5) Pneumonia due to COVID-19 virus ICD Codes: U07.1 - COVID-19; J12.89 - Other viral pneumonia SNOMED: 609754077, 059254473 Status: stable, progressing Assessment/Plan: Continue supplemental oxygen as needed. Coronavirus treatment per ID. Antiplatelet treatment. Monitor lites and renal function. Monitor EKG for QT prolongation. repeat cxr noted. ?chf. added daily lasix. keep dry. Cardiology and infectious disease follow-up. dvt and stress ulcer prophylaxis. repeat covid swab tomorrow. Plan of care discussed with patient at the bedside. Patient agrees with plan of care. repeat covid 19 pcr Subjective ROS Limited/Unobtainable: No Constitutional: Reports: malaise, weakness HEENT: Reports: no symptoms Cardiovascular: Reports: no symptoms Respiratory: Reports: cough, shortness of breath Gastrointestinal/Abdominal: Reports: no symptoms Genitourinary: Reports: no symptoms Neurologic/Psychiatric: Reports: anxiety, depressed, emotional problems Endocrine: Reports: no symptoms Hematologic/Lymphatic: Reports: anemia Allergies: Coded Allergies: No Known Allergies (Unverified , 03/14/12) All Systems: reviewed and negative except above Subjective There have been no overnight events. Patient remains in isolation for coronavirus. She remains on 3 L of oxygen via nasal cannula. No chest pain or shortness of breath. Currently tolerating hydroxychloroquine and azithromycin. Fevers resolved. Objective Last 24 Hour Vital Signs Date Time Temp Pulse Resp B/P (MAP) Pulse Ox O2 Delivery O2 Flow Rate FiO2 11/24/19 06:30 117/68 11/24/19 04:00 98.0 60 20 117/68 (84) 92 11/24/19 04:00 60 4/13/20 00:24 126/77 11/24/19 00:00 97.3 67 20 126/77 (93) 90 11/24/19 00:00 61 11/23/19 21:00 Nasal Cannula 3.0 11/23/19 20:00 97.0 89 20 134/77 (96) 90 11/23/19 17:39 124/51 11/23/19 17:39 60 124/51 11/23/19 16:00 67 11/23/19 16:00 96.9 60 20 125/51 (75) 95 11/23/19 12:00 106/63 11/23/19 12:00 60 11/23/19 12:00 96.9 60 20 106/63 (77) 92 11/23/19 09:00 60 105/50 11/23/19 09:00 Nasal Cannula 3.0 11/23/19 08:00 60 11/23/19 08:00 96.9 60 20 105/50 (68) 92 Intake and Output 11/23/19 11/24/19 19:00 07:00 Output Total 400 ml Balance -400 ml Output Urine Total 400 ml # Voids 1 2 Height (Feet): 5 Height (Inches): 2.00 Weight (Pounds): 120 Objective General Appearance: WD/WN, alert Neck: supple Cardiovascular: regular rhythm Respiratory/Chest: chest wall non-tender, lungs clear, normal breath sounds, no respiratory distress Abdomen: normal bowel sounds, non tender, soft, no organomegaly Edema: no edema noted Arm (L), no edema noted Arm (R), no edema noted Leg (L), no edema noted Leg (R), no edema noted Pedal (L), no edema noted Pedal (R), no edema noted Generalized Bhavesh Ovalle MD Nov 24, 2019 07:55
[2019-11-24 08:00] VITALS: BP 104/63
[2019-11-24] MEDS: Tamsulosin 0.4mg cap ORAL SCH (08:41)
[2019-11-24] MEDS: Magnesium Oxide 400mg tab ORAL SCH ×2 (08:41→17:31)
[2019-11-24] MEDS: Heparin 5000 units/ml inj SUBQ SCH ×2 (08:42→21:12)
--- NOTE | 2019-11-24 09:20 | NUR ---
NURSE NOTES: Second specimen for COVID [address] Ovalle.
--- NOTE | 2019-11-24 10:00 | NUR ---
NURSE NOTES: When patient changed, Bilateral heels redness, boggy to touch assessed which was not addressed during admission. Picture taken, process plan initiated, Optifoam applied.
--- NOTE | 2019-11-24 11:37 | Infectious Diseases Prog Note ---
Assessment/Plan Assessment/Plan antibiotics : ceftriaxone hydroxychloroquine 4.8.20 - P 1. covid 19 pneumonia s/p rx 2. e.coli UTI s/p rx 3. COPD 4. schizophrenia 5. CVA P 1. d/c ceftriaxone 2. observe off antibiotics 3. continue isolation Subjective ROS Limited/Unobtainable: Yes Allergies: Coded Allergies: No Known Allergies (Unverified , 03/14/12) Objective Vital Signs Last 24 Hour Vital Signs Date Time Temp Pulse Resp B/P (MAP) Pulse Ox O2 Delivery O2 Flow Rate FiO2 11/24/19 09:00 Nasal Cannula 3.0 11/24/19 08:42 60 104/63 11/24/19 08:00 97.3 60 20 104/63 (77) 95 11/24/19 08:00 60 11/24/19 06:30 117/68 11/24/19 04:00 98.0 60 20 117/68 (84) 92 11/24/19 04:00 60 11/24/19 00:24 126/77 11/24/19 00:00 97.3 67 20 126/77 (93) 90 11/24/19 00:00 61 11/23/19 21:00 Nasal Cannula 3.0 11/23/19 20:00 97.0 89 20 134/77 (96) 90 11/23/19 17:39 124/51 11/23/19 17:39 60 124/51 11/23/19 16:00 67 11/23/19 16:00 96.9 60 20 125/51 (75) 95 11/23/19 12:00 106/63 11/23/19 12:00 60 11/23/19 12:00 96.9 60 20 106/63 (77) 92 Height (Feet): 5 Height (Inches): 2.00 Weight (Pounds): 120 Current Medications Medications (Trade) Dose Ordered Sig/David Route PRN Reason Start Time Stop Time Status Last Admin Dose Admin Acetaminophen (Tylenol) 650 mg Q6H PRN ORAL Mild Pain (Pain Scale 1-3) 11/18/19 21:30 12/18/19 21:29 11/19/19 12:19 Albuterol Sulfate (Proventil MDI) 2 puff Q4H PRN INH Shortness of Breath 11/18/19 21:30 02/16/20 21:29 Amlodipine Besylate (Norvasc) 5 mg BID ORAL 11/19/19 09:00 12/19/19 08:59 11/23/19 17:39 Ceftriaxone Sodium 1 gm/ Dextrose 55 ml @ 110 mls/hr Q24H IVPB 11/21/19 15:00 11/28/19 14:59 11/23/19 15:18 Clonidine HCl (Catapres Tab) 0.1 mg EVERY 6 HOURS ORAL 11/19/19 00:00 02/17/20 00:00 11/24/19 06:30 Furosemide (Lasix) 20 mg DAILY IV 11/22/19 12:45 12/22/19 12:44 11/24/19 08:41 Heparin Sodium (Porcine) (Heparin 5000 units/ml) 5,000 units BID@0900,2100 SUBQ 11/19/19 09:00 01/03/20 08:59 11/24/19 08:42 Hydralazine HCl (Apresoline) 10 mg Q6H PRN ORAL PRN SBP>160 11/19/19 12:45 02/17/20 12:44 Magnesium Oxide (Mag-Ox 400mg) 400 mg BID ORAL 11/20/19 18:00 12/20/19 17:59 11/24/19 08:41 Risperidone (RisperDAL) 2 mg DAILY ORAL 11/19/19 09:00 01/03/20 08:59 11/24/19 08:41 Tamsulosin HCl (Flomax) 0.4 mg DAILY ORAL 11/19/19 09:00 12/19/19 08:59 11/24/19 08:41 Marcela Zafar MD Nov 24, 2019 11:37
[2019-11-24 12:00] VITALS: BP 111/68
--- NOTE | 2019-11-24 13:30 | NUR ---
CASE MANAGEMENT:REVIEW 11/24/19 SI: PNA D/T COVID 19. UTI 97.3 60 20 104/63 95% ON 3L/NC IS: IV LASIX QD MAG OXIDE PO BID NORVASC PO BID RISPERDAL PO QD FLOMAX PO QD HEPARIN SQ Q12 CLONIDINE PO Q6HRS : TELEMETRY STATUS DCP: FROM [facility] PLAN: MAINTAIN DROPLET PRECAUTIONS REPEAT COVID 19 TEST 11/24/19
--- NOTE | 2019-11-24 14:07 | NUR ---
RADIOLOGY DEPT., CHEST X-RAY DONE.-P.DYE
--- NOTE | 2019-11-24 15:31 | Diagnostic Imaging Report ---
Indication: Cough Technique: One view of the chest Comparison: For 06/01/2020 Findings: Bilateral mid and lower lung mostly interstitial infiltrates versus edema, likely small bilateral pleural effusions persist, unchanged. The heart is upper limits normal in size. There is a left chest pacemaker again demonstrated. Impression: Unchanged, over 3 days, findings as above.
[2019-11-24 16:00] VITALS: BP 121/75
--- NOTE | 2019-11-24 17:28 | NUR ---
NURSE NOTES: Dr. Rowland at the nursing station, clarified regarding clonidine scheduled every 6h instead of PRN. Per MD clonidine should be prn, will d/c order. 1800 clonidine not given.
[2019-11-24 20:00] VITALS: BP 126/75
--- NOTE | 2019-11-24 20:01 | NUR ---
NURSE NOTES: Received patient report from Terrance RN. Patient shows no signs of distress at this time. She is AOx 1. IV checked, patent and flushed. There are no signs of erythema, infiltration, or bleeding. Bed in the lowest position, call light within reach, bed alarm on, and bed brakes on. Will continue plan of care.
--- NOTE | 2019-11-24 20:33 | NUR ---
HAND-OFF: Report given to CONNER Urrutia. Endorsed plan of care.
[2019-11-25] VITALS: BP 127/74
[2019-11-25 04:00] VITALS: BP 117/75
--- NOTE | 2019-11-25 07:48 | NUR ---
HAND-OFF: Report given to CONNER Swan. Patient shows no signs of distress at this time. Endorsed plan of care.
[2019-11-25 08:00] VITALS: BP 107/69
--- NOTE | 2019-11-25 08:32 | NUR ---
NURSE NOTES: Received patient from Selene Urrutia. PAtient is awake laying comfortably in bed. Denies pain or discomfort at this time. 4 L/min nasal cannula O2 sat 92%/ Denies SOB. droplet isolation in place. Will continue plan of care.
[2019-11-25] MEDS: Tamsulosin 0.4mg cap ORAL SCH (09:41)
[2019-11-25] MEDS: Magnesium Oxide 400mg tab ORAL SCH ×2 (09:42→18:28)
[2019-11-25] MEDS: Heparin 5000 units/ml inj SUBQ SCH ×2 (09:43→21:44)
--- NOTE | 2019-11-25 10:00 | Progress Note ---
DATE: 11/24/2019 CARDIOLOGY PROGRESS NOTE SUBJECTIVE: The patient is on isolation, continues nasal oxygen, still with some hypoxia. Congestion is slightly better. She has defervesced. No shortness of breath noted. OBJECTIVE: LUNGS: Bilateral breath sounds. Few rhonchi. CARDIAC: Regular rhythm and rate. Normal S1, S2. ABDOMEN: Soft. EXTREMITIES: No edema. LABORATORY DATA: QTc interval less than 500 milliseconds. IMPRESSION: 1. COVID-19 pneumonia. 2. Pacemaker . 3. Hypertensive heart disease. 4. COPD. 5. Chronic diastolic congestive heart failure. PLAN: 1. Akay-he-twus reviewed and reconciled. 2. Therapy upgraded. 3. Continue cardiac monitoring. 4. Overall improving. Hadley Rowland M.D. DR: CAROL JOB#: [id number] CC:
--- NOTE | 2019-11-25 10:49 | Infectious Diseases Prog Note ---
Assessment/Plan Assessment/Plan antibiotics : none P 1. covid 19 pneumonia test positive 4.7.20 s/p rx with hydroxychloroquine 2. e.coli UTI s/p rx 3. COPD 4. schizophrenia 5. CVA P 1. observe off antibiotics 2. continue isolation Subjective ROS Limited/Unobtainable: Yes Allergies: Coded Allergies: No Known Allergies (Unverified , 03/14/12) Objective Vital Signs Last 24 Hour Vital Signs Date Time Temp Pulse Resp B/P (MAP) Pulse Ox O2 Delivery O2 Flow Rate FiO2 11/25/19 09:41 60 107/69 11/25/19 08:00 97.7 60 18 107/69 (82) 96 11/25/19 08:00 60 11/25/19 06:00 117/75 11/25/19 04:00 97.7 60 17 117/75 (89) 93 11/25/19 03:41 60 11/25/19 02:00 127/74 11/25/19 00:00 97.5 60 17 127/74 (91) 92 11/24/19 23:30 60 11/24/19 21:00 Nasal Cannula 3.0 11/24/19 20:00 97.1 73 18 126/75 (92) 88 11/24/19 17:32 70 121/75 11/24/19 17:27 121/75 11/24/19 16:00 96.8 70 20 121/75 (90) 96 11/24/19 16:00 86 11/24/19 13:05 111/68 11/24/19 12:00 62 11/24/19 12:00 97.0 63 20 111/68 (82) 97 Height (Feet): 5 Height (Inches): 2.00 Weight (Pounds): 120 Current Medications Medications (Trade) Dose Ordered Sig/David Route PRN Reason Start Time Stop Time Status Last Admin Dose Admin Acetaminophen (Tylenol) 650 mg Q6H PRN ORAL Mild Pain (Pain Scale 1-3) 11/18/19 21:30 12/18/19 21:29 11/19/19 12:19 Albuterol Sulfate (Proventil MDI) 2 puff Q4H PRN INH Shortness of Breath 11/18/19 21:30 02/16/20 21:29 Amlodipine Besylate (Norvasc) 5 mg BID ORAL 11/19/19 09:00 12/19/19 08:59 11/25/19 09:41 Clonidine HCl (Catapres Tab) 0.1 mg EVERY 6 HOURS ORAL 11/19/19 00:00 02/17/20 00:00 11/25/19 02:00 Furosemide (Lasix) 20 mg DAILY IV 11/22/19 12:45 12/22/19 12:44 11/25/19 09:42 Heparin Sodium (Porcine) (Heparin 5000 units/ml) 5,000 units BID@0900,2100 SUBQ 11/19/19 09:00 01/03/20 08:59 11/25/19 09:43 Hydralazine HCl (Apresoline) 10 mg Q6H PRN ORAL PRN SBP>160 11/19/19 12:45 02/17/20 12:44 Magnesium Oxide (Mag-Ox 400mg) 400 mg BID ORAL 11/20/19 18:00 12/20/19 17:59 11/25/19 09:42 Risperidone (RisperDAL) 2 mg DAILY ORAL 11/19/19 09:00 01/03/20 08:59 11/25/19 09:41 Tamsulosin HCl (Flomax) 0.4 mg DAILY ORAL 11/19/19 09:00 12/19/19 08:59 11/25/19 09:41 Marcela Zafar MD Nov 25, 2019 10:49
[2019-11-25 12:00] VITALS: BP 96/59
[2019-11-25] MEDS ORDERED: Milk of Magnesia 30ml Ud ORAL PRN (12:45)
--- NOTE | 2019-11-25 12:53 | General Progress Note ---
Assessment/Plan Problem List: (1) CKD (chronic kidney disease) stage 1, GFR 90 ml/min or greater ICD Codes: N18.1 - Chronic kidney disease, stage 1 SNOMED: 665296293 (2) CVA (cerebral vascular accident) ICD Codes: I63.9 - Cerebral infarction, unspecified SNOMED: 035452689 (3) Encephalopathy acute ICD Codes: G93.40 - Encephalopathy acute SNOMED: 3657811 (4) DINA (acute kidney injury) ICD Codes: N17.9 - DINA (acute kidney injury) SNOMED: 92777503 (5) Pneumonia due to COVID-19 virus ICD Codes: U07.1 - COVID-19; J12.89 - Other viral pneumonia SNOMED: 420129298, 078840213 Status: stable, progressing Assessment/Plan: Continue supplemental oxygen as needed. Coronavirus treatment per ID. Antiplatelet treatment. Monitor lites and renal function. keep dry. Cardiology and infectious disease follow-up. dvt and stress ulcer prophylaxis. repeat covid swab. Plan of care discussed with patient at the bedside. Patient agrees with plan of care. repeat covid 19 pcr Subjective ROS Limited/Unobtainable: Yes Constitutional: Reports: no symptoms HEENT: Reports: no symptoms Cardiovascular: Reports: no symptoms Respiratory: Reports: cough, shortness of breath Gastrointestinal/Abdominal: Reports: poor appetite, poor fluid intake Genitourinary: Reports: no symptoms Neurologic/Psychiatric: Reports: anxiety, emotional problems Endocrine: Reports: no symptoms Hematologic/Lymphatic: Reports: no symptoms Allergies: Coded Allergies: No Known Allergies (Unverified , 03/14/12) All Systems: reviewed and negative except above Subjective No overnight events. Stable on 2 to 3 L of nasal cannula. Remains somnolent and sleepy. No fevers or chills. Minimal cough. Patient is on chronic oxygen at the assisted facility. Completed hydroxychloroquine. Chest x-ray still with bilateral infiltrates. Receiving intermittent IV Lasix. Objective Last 24 Hour Vital Signs Date Time Temp Pulse Resp B/P (MAP) Pulse Ox O2 Delivery O2 Flow Rate FiO2 11/25/19 12:00 97.9 60 20 96/59 (71) 97 11/25/19 12:00 96/59 11/25/19 09:41 60 107/69 11/25/19 09:00 Nasal Cannula 3.0 11/25/19 08:00 97.7 60 18 107/69 (82) 96 11/25/19 08:00 60 11/25/19 06:00 117/75 11/25/19 04:00 97.7 60 17 117/75 (89) 93 11/25/19 03:41 60 11/25/19 02:00 127/74 11/25/19 00:00 97.5 60 17 127/74 (91) 92 11/24/19 23:30 60 11/24/19 21:00 Nasal Cannula 3.0 11/24/19 20:00 97.1 73 18 126/75 (92) 88 11/24/19 17:32 70 121/75 11/24/19 17:27 121/75 11/24/19 16:00 96.8 70 20 121/75 (90) 96 11/24/19 16:00 86 11/24/19 13:05 111/68 Intake and Output 11/24/19 11/25/19 19:00 07:00 Intake Total 360 ml Balance 360 ml Intake Oral 360 ml # Voids 3 2 Height (Feet): 5 Height (Inches): 2.00 Weight (Pounds): 120 Objective General Appearance: WD/WN, alert Neck: supple Cardiovascular: regular rhythm Respiratory/Chest: chest wall non-tender, lungs clear, normal breath sounds, no respiratory distress Abdomen: normal bowel sounds, non tender, soft, no organomegaly Edema: no edema noted Arm (L), no edema noted Arm (R), no edema noted Leg (L), no edema noted Leg (R), no edema noted Pedal (L), no edema noted Pedal (R), no edema noted Generalized Bhavesh Ovalle MD Nov 25, 2019 12:53
--- NOTE | 2019-11-25 14:53 | NUR ---
NURSE NOTES:Pt noted to have Non-blanching erythema without fluctuance R and L heels. Recommendations: Apply Moisture Barrier Paste to Sacrum. Cover with Optifoam drsg. Change every 3 days and prn. Apply Cavilon Skin Barrier to Both Heels. Cover Each Heel with Optifoam Drsg. Change every 7 Days and PRN. OFF-LOAD HEELS WITH PILLOWS. Reposition at least every 2hours or as tolerated.
[2019-11-25 16:00] VITALS: BP 100/57
[2019-11-25 16:55] LABS: ANION GAP 9 mmol/L (5-15); BLOOD UREA NITROGEN 37 mg/dL (7-18); CALCIUM 9.3 MG/DL (8.5-10.1); CARBON DIOXIDE 28 MMOL/L (21-32); CHLORIDE 105 MMOL/L (98-107); CREATININE 1.7 MG/DL (0.55-1.30); POTASSIUM 4.4 MMOL/L (3.5-5.1); SODIUM 142 MMOL/L (136-145)
--- NOTE | 2019-11-25 19:30 | NUR ---
NURSE NOTES: Received report from CONNER Swan. Patient asleep, but arousable. IV intact and flushed; no erythema, bleeding, or infiltration. Patient on 2L oxygen per nasal cannula; saturating at 92%. Droplet and contact isolation enforced. Bed rails raised x2. Call light placed within reach. Will continue to monitor.
--- NOTE | 2019-11-25 19:55 | NUR ---
HAND-OFF: Report given to Selene Torrez. Plan of care endorsed.
[2019-11-25 21:00] VITALS: BP 126/79
[2019-11-26] VITALS: BP 111/63
--- NOTE | 2019-11-26 00:28 | NUR ---
NURSE NOTES: Patient asleep, but arousable. Able to follow simple commands. Aphasic. BP: 111/63 Clonidine 0.1mg due at 00:00 not given. Patient stable. Will continue to monitor.
--- NOTE | 2019-11-26 00:35 | NUR ---
NURSE NOTES: Elevated HOB for better oxygenation. Oxygen saturation raised to 93%.
[2019-11-26 04:00] VITALS: BP 132/80
--- NOTE | 2019-11-26 04:38 | NUR ---
NURSE NOTES: Patient asleep, but easily arousable. VS within normal limits. No signs of acute distress or shortness of breath. HOB elevated. Denies any discomfort or pain. Bed rails raised x2. Bed in lowest position, brakes engaged. Call light placed within reach. Will continue to monitor.
--- NOTE | 2019-11-26 05:44 | Progress Note ---
DATE: 11/25/2019 CARDIOLOGY PROGRESS NOTE SUBJECTIVE: The patient is on low flow oxygen. Completed hydroxychloroquine therapy. No hypoxia. No cough or shortness of breath. OBJECTIVE: VITAL SIGNS: Blood pressure 96/59, pulse 60, respirations 20. LUNGS: With few rhonchi. CARDIAC: Regular. ABDOMEN: Soft. EXTREMITIES: No edema. IMPRESSION: 1. COVID-19 pneumonia, stabilizing. 2. Toxic encephalopathy, recovering. 3. 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 4. Permanent pacemaker with stable function. 5. Hypertensive heart disease with chronic diastolic congestive heart failure. 6. Low range blood pressure at this time. PLAN: 1. Can discontinue telemetry. 2. Fluid challenge for symptomatic hypotension. 3. Hold diuretics for now. 4. Decrease amlodipine doses. Hadley Rowland M.D. DR: MELISSA JOB#: [id number] CC:
--- NOTE | 2019-11-26 07:30 | NUR ---
NURSE NOTES: Nurse report given by CONNER Romero. Patient's sleeping in bed, semi-mclean position, breathing regular and unlabored, no s/s of pain, no s/s of distress or SOB. Bed low and locked, call light within reach, side rails x 3, bed alarm is armed. IV is saline locked, flushed, patent and asymptomatic. Will continue to monitor closely.
--- NOTE | 2019-11-26 07:31 | NUR ---
HAND-OFF: Report given to CONNER Petersen. Patient stable. Plan of care endorsed.
[2019-11-26 08:00] VITALS: BP 140/54
[2019-11-26] MEDS: Tamsulosin 0.4mg cap ORAL SCH (09:04)
[2019-11-26] MEDS: Heparin 5000 units/ml inj SUBQ SCH ×2 (09:04→20:14)
[2019-11-26] MEDS: Magnesium Oxide 400mg tab ORAL SCH ×2 (09:04→18:04)
--- NOTE | 2019-11-26 10:47 | Infectious Diseases Prog Note ---
Assessment/Plan Assessment/Plan antibiotics : none P 1. covid 19 pneumonia test positive 4.7.20, 4.13.20 s/p rx with hydroxychloroquine 2. e.coli UTI s/p rx 3. COPD 4. schizophrenia 5. CVA P 1. observe off antibiotics 2. continue isolation Subjective ROS Limited/Unobtainable: Yes Allergies: Coded Allergies: No Known Allergies (Unverified , 03/14/12) Objective Vital Signs Last 24 Hour Vital Signs Date Time Temp Pulse Resp B/P (MAP) Pulse Ox O2 Delivery O2 Flow Rate FiO2 11/26/19 09:04 66 140/54 11/26/19 09:00 72 11/26/19 09:00 Nasal Cannula 3.0 11/26/19 08:00 98.2 66 19 140/54 (82) 98 11/26/19 05:35 132/80 11/26/19 04:00 67 11/26/19 04:00 97.8 75 17 132/80 (97) 92 11/26/19 00:00 111/63 11/26/19 00:00 97.6 70 16 111/63 (79) 91 11/26/19 00:00 67 11/25/19 21:00 Nasal Cannula 3.0 11/25/19 21:00 98.1 72 17 126/79 (95) 91 11/25/19 20:30 61 20 96 Nasal Cannula 2.0 28 11/25/19 20:30 96 Nasal Cannula 2.0 28 11/25/19 20:00 81 11/25/19 18:00 100/57 11/25/19 18:00 60 100/57 11/25/19 16:00 97.5 60 18 100/57 (71) 96 11/25/19 16:00 61 11/25/19 12:00 97.9 60 20 96/59 (71) 97 11/25/19 12:00 60 11/25/19 12:00 96/59 Height (Feet): 5 Height (Inches): 2.00 Weight (Pounds): 109 Microbiology Date/Time Source Procedure Growth Status 11/24/19 09:00 Nasopharynx Coronavirus COVID-19 PCR ([facility]) - Final Complete Laboratory Tests Test 11/25/19 16:15 Sodium Level 142 MMOL/L (136-145) Potassium Level 4.4 MMOL/L (3.5-5.1) Chloride Level 105 MMOL/L (98-107) Carbon Dioxide Level 28 MMOL/L (21-32) Anion Gap 9 mmol/L (5-15) Blood Urea Nitrogen 37 mg/dL (7-18) H Creatinine 1.7 MG/DL (0.55-1.30) H Estimat Glomerular Filtration Rate 29.1 mL/min (>60) Glucose Level 94 MG/DL (74-106) Calcium Level 9.3 MG/DL (8.5-10.1) Magnesium Level 2.4 MG/DL (1.8-2.4) Current Medications Medications (Trade) Dose Ordered Sig/David Route PRN Reason Start Time Stop Time Status Last Admin Dose Admin Acetaminophen (Tylenol) 650 mg Q6H PRN ORAL Mild Pain (Pain Scale 1-3) 11/18/19 21:30 12/18/19 21:29 11/19/19 12:19 Albuterol Sulfate (Proventil MDI) 2 puff Q4H PRN INH Shortness of Breath 11/18/19 21:30 02/16/20 21:29 Amlodipine Besylate (Norvasc) 5 mg DAILY ORAL 11/26/19 09:00 12/26/19 08:59 11/26/19 09:04 Clonidine HCl (Catapres Tab) 0.1 mg EVERY 6 HOURS ORAL 11/19/19 00:00 02/17/20 00:00 11/26/19 05:35 Heparin Sodium (Porcine) (Heparin 5000 units/ml) 5,000 units BID@0900,2100 SUBQ 11/19/19 09:00 01/03/20 08:59 11/26/19 09:04 Hydralazine HCl (Apresoline) 10 mg Q6H PRN ORAL PRN SBP>160 11/19/19 12:45 02/17/20 12:44 Magnesium Hydroxide (Mom) 30 ml TIDPRN PRN ORAL Constipation 11/25/19 12:45 12/25/19 12:44 Magnesium Oxide (Mag-Ox 400mg) 400 mg BID ORAL 11/20/19 18:00 12/20/19 17:59 11/26/19 09:04 Risperidone (RisperDAL) 2 mg DAILY ORAL 11/19/19 09:00 01/03/20 08:59 11/26/19 09:04 Tamsulosin HCl (Flomax) 0.4 mg DAILY ORAL 11/19/19 09:00 12/19/19 08:59 11/26/19 09:04 Marcela Zafar MD Nov 26, 2019 10:47
[2019-11-26 12:00] VITALS: BP 121/68
--- NOTE | 2019-11-26 13:14 | General Progress Note ---
Assessment/Plan Problem List: (1) CKD (chronic kidney disease) stage 1, GFR 90 ml/min or greater ICD Codes: N18.1 - Chronic kidney disease, stage 1 SNOMED: 971636509 (2) CVA (cerebral vascular accident) ICD Codes: I63.9 - Cerebral infarction, unspecified SNOMED: 456663487 (3) Encephalopathy acute ICD Codes: G93.40 - Encephalopathy acute SNOMED: 7619497 (4) DINA (acute kidney injury) ICD Codes: N17.9 - DINA (acute kidney injury) SNOMED: 73126703 (5) Pneumonia due to COVID-19 virus ICD Codes: U07.1 - COVID-19; J12.89 - Other viral pneumonia SNOMED: 034579989, 600343365 Status: stable, progressing Assessment/Plan: Continue supplemental oxygen as needed. Coronavirus treatment per ID. Antiplatelet treatment. Monitor lites and renal function. keep dry. Cardiology and infectious disease follow-up. dvt and stress ulcer prophylaxis. repeat covid swab. Plan of care discussed with patient at the bedside. Patient agrees with plan of care. repeat labs in the arm. monitor cr on lasix Subjective ROS Limited/Unobtainable: No Constitutional: Reports: malaise, weakness HEENT: Reports: no symptoms Cardiovascular: Reports: no symptoms Respiratory: Reports: cough, shortness of breath Gastrointestinal/Abdominal: Reports: no symptoms Genitourinary: Reports: no symptoms Neurologic/Psychiatric: Reports: anxiety, depressed, emotional problems Endocrine: Reports: no symptoms Hematologic/Lymphatic: Reports: no symptoms Allergies: Coded Allergies: No Known Allergies (Unverified , 03/14/12) All Systems: reviewed and negative except above Subjective No overnight events. Stable on 2 to 3 L of nasal cannula. Remains somnolent and sleepy. No fevers or chills. Minimal cough. Patient is on chronic oxygen at the [facility]. Completed hydroxychloroquine. Chest x-ray still with bilateral infiltrates. Receiving intermittent IV Lasix. Cr slightly up. covid + on 11/23 Objective Last 24 Hour Vital Signs Date Time Temp Pulse Resp B/P (MAP) Pulse Ox O2 Delivery O2 Flow Rate FiO2 11/26/19 12:08 121/68 11/26/19 12:00 96.6 74 18 121/68 (85) 97 11/26/19 09:04 66 140/54 11/26/19 09:00 72 11/26/19 09:00 Nasal Cannula 3.0 11/26/19 08:00 98.2 66 19 140/54 (82) 98 11/26/19 05:35 132/80 11/26/19 04:00 67 11/26/19 04:00 97.8 75 17 132/80 (97) 92 11/26/19 00:00 111/63 11/26/19 00:00 97.6 70 16 111/63 (79) 91 11/26/19 00:00 67 11/25/19 21:00 Nasal Cannula 3.0 11/25/19 21:00 98.1 72 17 126/79 (95) 91 11/25/19 20:30 61 20 96 Nasal Cannula 2.0 28 11/25/19 20:30 96 Nasal Cannula 2.0 28 11/25/19 20:00 81 11/25/19 18:00 100/57 11/25/19 18:00 60 100/57 11/25/19 16:00 97.5 60 18 100/57 (71) 96 11/25/19 16:00 61 Intake and Output 11/25/19 11/26/19 19:00 07:00 Intake Total 360 ml 240 ml Balance 360 ml 240 ml Intake Oral 360 ml 240 ml # Voids 3 1 Laboratory Tests 11/25/19 16:15: Sodium Level 142, Potassium Level 4.4, Chloride Level 105, Carbon Dioxide Level 28, Anion Gap 9, Blood Urea Nitrogen 37H, Creatinine 1.7H, Estimat Glomerular Filtration Rate 29.1, Glucose Level 94, Calcium Level 9.3, Magnesium Level 2.4 Height (Feet): 5 Height (Inches): 2.00 Weight (Pounds): 109 Objective General Appearance: WD/WN, alert Neck: supple Cardiovascular: regular rhythm Respiratory/Chest: chest wall non-tender, lungs clear, normal breath sounds, no respiratory distress Abdomen: normal bowel sounds, non tender, soft, no organomegaly Edema: no edema noted Arm (L), no edema noted Arm (R), no edema noted Leg (L), no edema noted Leg (R), no edema noted Pedal (L), no edema noted Pedal (R), no edema noted Generalized Bhavesh Ovalle MD Nov 26, 2019 13:14
--- NOTE | 2019-11-26 15:25 | NUR ---
CASE MANAGEMENT:REVIEW 11/26/19 SI: PNA D/T COVID 19. UTI 96.6 74 18 121/68 97% ON 3L/NC BUN+37 CR+1.7 IS: MAG OXIDE PO BID NORVASC PO BID RISPERDAL PO QD FLOMAX PO QD HEPARIN SQ Q12 CLONIDINE PO Q6HRS : TELEMETRY STATUS DCP: FROM [facility] PLAN: MAINTAIN DROPLET PRECAUTIONS REPEATED COVID 19 TEST REMAINS POSITIVE
--- NOTE | 2019-11-26 15:33 | NUR ---
DISCHARGE PLANNING FAXED CLINICALS TO [facility]
[2019-11-26 16:00] VITALS: BP 106/48
--- NOTE | 2019-11-26 19:15 | NUR ---
HAND-OFF: Report given to CONNER Romero. Patient's stable, plan of care endorsed.
--- NOTE | 2019-11-26 19:38 | NUR ---
NURSE NOTES: Report received from CONNER Petersen. Patient asleep, but easily arousable. Opens eyes spontaneously and able to follow simple commands. Aphasic, but able to communciate Addendum: 11/26/19 at 1948 by Heather Barrow RN Aphasic but able to communicate needs through gestures. IV on RAC 20g, intact and flushed. No erythema, bleeding, or infiltration. Bilateral heels protected with optifoam and offloaded. Bed in lowest position, brakes engaged. Call light and belongings placed within reach. Contact and droplet precautions enforced. Will continue to monitor.
[2019-11-26 20:00] VITALS: BP 110/75
[2019-11-27] VITALS: BP 137/78
[2019-11-27 04:00] VITALS: BP 139/73
[2019-11-27 05:25] LABS: BASOPHILS % (AUTO) 0.3 % (0.0-2.0); EOSINOPHILS % (AUTO) 1.1 % (0.0-3.0); HEMATOCRIT 26.2 % (37.0-47.0); HEMOGLOBIN 8.8 G/DL (12.0-16.0); LYMPHOCYTES % (AUTO) 14.5 % (20.0-45.0); MEAN CORPUSCULAR VOLUME 85 FL (80-99); MONOCYTES % (AUTO) 9.2 % (1.0-10.0); NEUTROPHILS % (AUTO) 74.9 % (45.0-75.0); PLATELET COUNT 300 K/UL (150-450); RED BLOOD COUNT 3.09 M/UL (4.20-5.40); RED CELL DISTRIBUTION WIDTH 13.2 % (11.6-14.8); WHITE BLOOD COUNT 7.4 K/UL (4.8-10.8)
--- NOTE | 2019-11-27 05:45 | Progress Note ---
DATE: 11/26/2019 CARDIOLOGY PROGRESS NOTE SUBJECTIVE: The patient has minimal cough and congestion. On nasal oxygen. Completed hydroxychloroquine therapy without cardiac complications. OBJECTIVE: VITAL SIGNS: Blood pressure 121/68, pulse 74, respiratory rate 18, afebrile, oxygen saturation 91 to 97% on 3 liters. LUNGS: With few rhonchi. CARDIAC: Regular. ABDOMEN: Soft. EXTREMITIES: There is no edema. LABORATORY DATA: Chest x-ray with bilateral infiltrates. IMPRESSION: 1. COVID-19 pneumonia. 2. Hypoxia. 3. Acute on chronic kidney injury. 4. Permanent pacemaker. 5. Hypertensive heart disease. 6. Chronic obstructive pulmonary disease. 7. Acute on chronic diastolic congestive heart failure. PLAN: 1. Recheck laboratory studies. 2. Periodic diuresis. 3. Respiratory therapy. 4. Taper oxygen as able. 5. Await clearance of COVID ___ viral shedding before discharge. Hadley Rowland M.D. DR: MELISSA JOB#: [id number] CC:
[2019-11-27 05:46] LABS: ANION GAP 10 mmol/L (5-15); BLOOD UREA NITROGEN 58 mg/dL (7-18); CALCIUM 8.8 MG/DL (8.5-10.1); CARBON DIOXIDE 28 MMOL/L (21-32); CHLORIDE 107 MMOL/L (98-107); CREATININE 1.9 MG/DL (0.55-1.30); POTASSIUM 5.2 MMOL/L (3.5-5.1); SODIUM 145 MMOL/L (136-145)
--- NOTE | 2019-11-27 07:28 | NUR ---
NURSE NOTES: Nurse report given by CONNER Romero. Patient's sleeping in bed, no s/s of distress or SOB, no s/s of pain, breathing regular and unlabored. Bed low and locked, call light within reach, side rails x3. IV is saline locked, patent and asymptomatic. Will continue to monitor.
--- NOTE | 2019-11-27 07:28 | NUR ---
HAND-OFF: Report given to CONNER Petersen. Plan of endorsed.
[2019-11-27 08:00] VITALS: BP 112/71
[2019-11-27] MEDS: Tamsulosin 0.4mg cap ORAL SCH (09:18)
[2019-11-27] MEDS: Magnesium Oxide 400mg tab ORAL SCH ×2 (09:18→17:48)
[2019-11-27] MEDS: Heparin 5000 units/ml inj SUBQ SCH ×2 (09:20→21:23)
--- NOTE | 2019-11-27 11:17 | NUR ---
DISCHARGE PLANNING FROM [facility] 11/18/19 ~ COVID 19 DETECTED 11/24/19 ~ REPEATED COVID 19 ~ STILL DETECTED 11/26/19 ~ FAXED CLINICALS TO [facility] IN PREPARATION FOR DISCHARGE 11/27/19 ~ TOMORROW 11/28/19 WILL BE 10 DAYS AFTER ADMISSION CALLED [facility] AND SPOKE WITH CAR[facility] WHO STATED THEY ARE REVIEWING CLINICALS PATIENT HAS BEEN AFEBRILE SINCE ADMISSION
--- NOTE | 2019-11-27 11:50 | Infectious Diseases Prog Note ---
Assessment/Plan Assessment/Plan A; 1. Pneumonia with COVID19 Positive: 11/17 & 11/23 2. History of schizophrenia. 3. Stroke. 4. COPD. 5. E. coli UTI treated PLAN: 1. Observe off antibiotic 3. Repeat COVID19 test Subjective ROS Limited/Unobtainable: Yes Allergies: Coded Allergies: No Known Allergies (Unverified , 03/14/12) Objective Vital Signs Last 24 Hour Vital Signs Date Time Temp Pulse Resp B/P (MAP) Pulse Ox O2 Delivery O2 Flow Rate FiO2 11/27/19 09:00 Nasal Cannula 3.0 11/27/19 09:00 60 112/71 11/27/19 08:00 97.9 60 18 112/71 (85) 96 11/27/19 06:08 139/73 11/27/19 04:00 97.1 82 17 139/73 (95) 97 11/27/19 00:00 75 11/27/19 00:00 97.3 87 18 137/78 (97) 96 11/26/19 21:00 Nasal Cannula 3.0 11/26/19 20:18 95 Nasal Cannula 2.0 28 11/26/19 20:18 65 20 95 Nasal Cannula 2.0 28 11/26/19 20:00 85 11/26/19 20:00 97.0 87 18 110/75 (87) 97 11/26/19 18:00 106/48 11/26/19 16:00 83 11/26/19 16:00 98.6 60 18 106/48 (67) 100 11/26/19 12:08 121/68 11/26/19 12:00 96.6 74 18 121/68 (85) 97 11/26/19 12:00 68 Height (Feet): 5 Height (Inches): 2.00 Weight (Pounds): 109 General Appearance: no acute distress HEENT: mucous membranes moist Respiratory/Chest: lungs clear Cardiovascular: normal rate Abdomen: soft, non tender Extremities: no edema Neurologic/Psychiatric: other - sleeping Laboratory Tests Test 11/27/19 03:23 White Blood Count 7.4 K/UL (4.8-10.8) Red Blood Count 3.09 M/UL (4.20-5.40) L Hemoglobin 8.8 G/DL (12.0-16.0) L Hematocrit 26.2 % (37.0-47.0) L Mean Corpuscular Volume 85 FL (80-99) Mean Corpuscular Hemoglobin 28.6 PG (27.0-31.0) Mean Corpuscular Hemoglobin Concent 33.7 G/DL (32.0-36.0) Red Cell Distribution Width 13.2 % (11.6-14.8) Platelet Count 300 K/UL (150-450) Mean Platelet Volume 6.7 FL (6.5-10.1) Neutrophils (%) (Auto) 74.9 % (45.0-75.0) Lymphocytes (%) (Auto) 14.5 % (20.0-45.0) L Monocytes (%) (Auto) 9.2 % (1.0-10.0) Eosinophils (%) (Auto) 1.1 % (0.0-3.0) Basophils (%) (Auto) 0.3 % (0.0-2.0) Sodium Level 145 MMOL/L (136-145) Potassium Level 5.2 MMOL/L (3.5-5.1) H Chloride Level 107 MMOL/L (98-107) Carbon Dioxide Level 28 MMOL/L (21-32) Anion Gap 10 mmol/L (5-15) Blood Urea Nitrogen 58 mg/dL (7-18) H Creatinine 1.9 MG/DL (0.55-1.30) H Estimat Glomerular Filtration Rate 25.6 mL/min (>60) Glucose Level 106 MG/DL (74-106) Calcium Level 8.8 MG/DL (8.5-10.1) Magnesium Level 2.5 MG/DL (1.8-2.4) H Pro-B-Type Natriuretic Peptide 327 pg/mL (0-125) H Current Medications Medications (Trade) Dose Ordered Sig/David Route PRN Reason Start Time Stop Time Status Last Admin Dose Admin Acetaminophen (Tylenol) 650 mg Q6H PRN ORAL Mild Pain (Pain Scale 1-3) 11/18/19 21:30 12/18/19 21:29 11/19/19 12:19 Albuterol Sulfate (Proventil MDI) 2 puff Q4H PRN INH Shortness of Breath 11/18/19 21:30 02/16/20 21:29 Amlodipine Besylate (Norvasc) 5 mg DAILY ORAL 11/26/19 09:00 12/26/19 08:59 11/26/19 09:04 Clonidine HCl (Catapres Tab) 0.1 mg EVERY 6 HOURS ORAL 11/19/19 00:00 02/17/20 00:00 11/27/19 06:08 Heparin Sodium (Porcine) (Heparin 5000 units/ml) 5,000 units BID@0900,2100 SUBQ 11/19/19 09:00 01/03/20 08:59 11/27/19 09:20 Hydralazine HCl (Apresoline) 10 mg Q6H PRN ORAL PRN SBP>160 11/19/19 12:45 02/17/20 12:44 Magnesium Hydroxide (Mom) 30 ml TIDPRN PRN ORAL Constipation 11/25/19 12:45 12/25/19 12:44 Magnesium Oxide (Mag-Ox 400mg) 400 mg BID ORAL 11/20/19 18:00 12/20/19 17:59 11/27/19 09:18 Risperidone (RisperDAL) 2 mg DAILY ORAL 11/19/19 09:00 01/03/20 08:59 11/27/19 09:18 Tamsulosin HCl (Flomax) 0.4 mg DAILY ORAL 11/19/19 09:00 12/19/19 08:59 11/27/19 09:18 Eleazar Prieto MD Nov 27, 2019 11:50
[2019-11-27 12:00] VITALS: BP 108/54
--- NOTE | 2019-11-27 13:30 | NUR ---
NURSE NOTES: COVID SWAB COLLECTED AND TURNED IN TO LAB
--- NOTE | 2019-11-27 13:40 | General Progress Note ---
Assessment/Plan Problem List: (1) CKD (chronic kidney disease) stage 1, GFR 90 ml/min or greater ICD Codes: N18.1 - Chronic kidney disease, stage 1 SNOMED: 092460448 (2) CVA (cerebral vascular accident) ICD Codes: I63.9 - Cerebral infarction, unspecified SNOMED: 722168936 (3) Encephalopathy acute ICD Codes: G93.40 - Encephalopathy acute SNOMED: 3758671 (4) DINA (acute kidney injury) ICD Codes: N17.9 - DINA (acute kidney injury) SNOMED: 56306347 (5) Pneumonia due to COVID-19 virus ICD Codes: U07.1 - COVID-19; J12.89 - Other viral pneumonia SNOMED: 759067812, 353966518 Status: stable, progressing Assessment/Plan: Continue supplemental oxygen as needed. Coronavirus treatment per ID. Antiplatelet treatment. Monitor lites and renal function. keep dry. Cardiology and infectious disease follow-up. dvt and stress ulcer prophylaxis. repeat covid swab. Plan of care discussed with patient at the bedside. Patient agrees with plan of care. repeat labs in the arm. monitor cr on lasix dc planning tomorrow to snf. will need isolation for 3 more days Subjective ROS Limited/Unobtainable: No Constitutional: Reports: malaise, weakness HEENT: Reports: no symptoms Cardiovascular: Reports: no symptoms Respiratory: Reports: no symptoms Gastrointestinal/Abdominal: Reports: no symptoms Genitourinary: Reports: no symptoms Neurologic/Psychiatric: Reports: depressed, emotional problems Endocrine: Reports: no symptoms Hematologic/Lymphatic: Reports: no symptoms Allergies: Coded Allergies: No Known Allergies (Unverified , 03/14/12) All Systems: reviewed and negative except above Subjective No overnight events. Stable on 2 to 3 L of nasal cannula. Remains somnolent and sleepy. No fevers or chills. Minimal cough. Patient is on chronic oxygen at the [facility] facility. Completed hydroxychloroquine. Chest x-ray still with bilateral infiltrates.chf?. Receiving intermittent IV Lasix. Cr slightly up. covid + on 11/23 Objective Last 24 Hour Vital Signs Date Time Temp Pulse Resp B/P (MAP) Pulse Ox O2 Delivery O2 Flow Rate FiO2 11/27/19 12:00 96.7 59 17 108/54 (72) 98 11/27/19 12:00 108/54 11/27/19 09:00 Nasal Cannula 3.0 11/27/19 09:00 60 112/71 11/27/19 08:00 97.9 60 18 112/71 (85) 96 11/27/19 06:08 139/73 11/27/19 04:00 97.1 82 17 139/73 (95) 97 11/27/19 00:00 75 11/27/19 00:00 97.3 87 18 137/78 (97) 96 11/26/19 21:00 Nasal Cannula 3.0 11/26/19 20:18 95 Nasal Cannula 2.0 28 11/26/19 20:18 65 20 95 Nasal Cannula 2.0 28 11/26/19 20:00 85 11/26/19 20:00 97.0 87 18 110/75 (87) 97 11/26/19 18:00 106/48 11/26/19 16:00 83 11/26/19 16:00 98.6 60 18 106/48 (67) 100 Intake and Output 11/26/19 11/27/19 19:00 07:00 Intake Total 300 ml 180 ml Balance 300 ml 180 ml Intake Oral 300 ml 180 ml # Voids 2 1 # Bowel Movements 1 Laboratory Tests 11/27/19 03:23: White Blood Count 7.4, Red Blood Count 3.09L, Hemoglobin 8.8L, Hematocrit 26.2L , Mean Corpuscular Volume 85, Mean Corpuscular Hemoglobin 28.6, Mean Corpuscular Hemoglobin Concent 33.7, Red Cell Distribution Width 13.2, Platelet Count 300, Mean Platelet Volume 6.7, Neutrophils (%) (Auto) 74.9, Lymphocytes (% ) (Auto) 14.5L, Monocytes (%) (Auto) 9.2, Eosinophils (%) (Auto) 1.1, Basophils (%) (Auto) 0.3, Sodium Level 145, Potassium Level 5.2H, Chloride Level 107, Carbon Dioxide Level 28, Anion Gap 10, Blood Urea Nitrogen 58H, Creatinine 1.9H , Estimat Glomerular Filtration Rate 25.6, Glucose Level 106, Calcium Level 8.8 , Magnesium Level 2.5H, Pro-B-Type Natriuretic Peptide 327H Height (Feet): 5 Height (Inches): 2.00 Weight (Pounds): 109 Objective General Appearance: WD/WN, alert Neck: supple Cardiovascular: regular rhythm Respiratory/Chest: chest wall non-tender, lungs clear, normal breath sounds, no respiratory distress Abdomen: normal bowel sounds, non tender, soft, no organomegaly Edema: no edema noted Arm (L), no edema noted Arm (R), no edema noted Leg (L), no edema noted Leg (R), no edema noted Pedal (L), no edema noted Pedal (R), no edema noted Generalized Bhavesh Ovalle MD Nov 27, 2019 13:40
[2019-11-27 16:00] VITALS: BP 118/71
--- NOTE | 2019-11-27 19:01 | NUR ---
HAND-OFF: Report given to CONNER Urrutia. Patient's stable, plan of care endorsed.
[2019-11-27 20:00] VITALS: BP 105/65
--- NOTE | 2019-11-27 22:00 | NUR ---
NURSE NOTES: Patient transferred from telemetry floor. Received report from CONNER Urrutia. Patient awake, nonverbal. On nasal cannula - 4L. WCP taken. Dressings dry and intact. IV intact and patent. Bed locked and in lowest position. Bed alarm on. Call light in reach. Will continue to monitor the patient.
--- NOTE | 2019-11-27 22:19 | NUR ---
NURSE NOTES: Report given to CONNER Lerner. Transported patient to room 418-2 without any incident. Patient showed no signs of distress or pain at the time. Endorsed plan of care.
[2019-11-28] VITALS (7 sets, daily range): BP systolic 105–144; BP diastolic 64–81
[2019-11-28 07:27] LABS: ANION GAP 8 mmol/L (5-15); BLOOD UREA NITROGEN 58 mg/dL (7-18); CALCIUM 9.1 MG/DL (8.5-10.1); CARBON DIOXIDE 27 MMOL/L (21-32); CHLORIDE 105 MMOL/L (98-107); CREATININE 1.5 MG/DL (0.55-1.30); POTASSIUM 5.6 MMOL/L (3.5-5.1); SODIUM 140 MMOL/L (136-145)
--- NOTE | 2019-11-28 07:39 | NUR ---
HAND-OFF: Report given to CONNER Meade.
--- NOTE | 2019-11-28 07:40 | NUR ---
NURSE NOTES: Received patient in bed awake. O2 via NC in place. No SOB or acute distress. IV line intact and patent. Protective dressings intact. HOB elevated. Bed locked in lowest position. Call light within reach. Will continue plan of care.
--- NOTE | 2019-11-28 08:43 | Progress Note ---
DATE: 11/27/2019 CARDIOLOGY PROGRESS NOTE SUBJECTIVE: Remains on nasal cannula. Somnolent, but arousable. Minimal cough and no shortness of breath. Saturation of oxygen 96 to 98% on 3 liters. OBJECTIVE: LUNGS: Coarse breath sounds. CARDIAC: Regular rhythm. Normal S1, S2. ABDOMEN: Soft. EXTREMITIES: No edema. LABORATORY DATA: White count 7.4, hemoglobin 8.8. Magnesium 2.5, potassium 5.2. BUN 58, creatinine 1.9. IMPRESSION: 1. Worsening renal failure. 2. Hypertensive heart disease. 3. Permanent pacemaker. 4. Hypomagnesemia. PLAN: 1. IV fluid hydration. 2. Hold discharge. 3. Continue current cardiovascular regimen with titration of antihypertensive and anti-failure regimen based on clinical parameters. Hadley Rowland M.D. DR: BRET JOB#: [id number] CC:
[2019-11-28] MEDS: Heparin 5000 units/ml inj SUBQ SCH ×2 (09:00→20:46)
[2019-11-28] MEDS: Tamsulosin 0.4mg cap ORAL SCH (09:00)
[2019-11-28] MEDS: Magnesium Oxide 400mg tab ORAL SCH ×2 (09:00→17:30)
--- NOTE | 2019-11-28 10:09 | NUR ---
DISCHARGE PLANNING FROM [facility] 11/18/19 ~ COVID 19 DETECTED 11/24/19 ~ REPEATED COVID 19 ~ STILL DETECTED 11/26/19 ~ FAXED CLINICALS TO [facility] IN PREPARATION FOR DISCHARGE 11/28/19 ~ SPOKE WITH CARTER, THE [facility] BOSS AT [facility]. THEY ARE WILLING TO ACCEPT PATIENT BACK BUT THEY ARE WAITING FOR A RESPONSE FROM THE HEALTH DEPARTMENT.
--- NOTE | 2019-11-28 11:00 | Infectious Diseases Prog Note ---
Assessment/Plan Assessment/Plan antibiotics : none P 1. covid 19 pneumonia test positive 4.7.20, 4.13.20 s/p rx with hydroxychloroquine 2. e.coli UTI s/p rx 3. COPD 4. schizophrenia 5. CVA P 1. observe off antibiotics 2. continue isolation Subjective ROS Limited/Unobtainable: Yes Allergies: Coded Allergies: No Known Allergies (Unverified , 03/14/12) Objective Vital Signs Last 24 Hour Vital Signs Date Time Temp Pulse Resp B/P (MAP) Pulse Ox O2 Delivery O2 Flow Rate FiO2 11/28/19 09:00 61 144/80 11/28/19 08:00 97.5 61 18 144/80 (101) 94 11/28/19 05:15 111/71 11/28/19 04:00 97.8 60 19 111/71 (84) 97 11/28/19 00:00 97.7 61 19 105/67 (80) 90 11/28/19 00:00 105/67 11/27/19 21:00 Nasal Cannula 4.0 11/27/19 21:00 Nasal Cannula 4.0 11/27/19 20:00 99.1 64 24 105/65 (78) 93 11/27/19 17:48 118/71 11/27/19 16:00 98.1 76 20 118/71 (87) 96 11/27/19 12:00 96.7 59 17 108/54 (72) 98 11/27/19 12:00 108/54 Height (Feet): 5 Height (Inches): 2.00 Weight (Pounds): 109 Laboratory Tests Test 11/28/19 05:00 Sodium Level 140 MMOL/L (136-145) Potassium Level 5.6 MMOL/L (3.5-5.1) H Chloride Level 105 MMOL/L (98-107) Carbon Dioxide Level 27 MMOL/L (21-32) Anion Gap 8 mmol/L (5-15) Blood Urea Nitrogen 58 mg/dL (7-18) H Creatinine 1.5 MG/DL (0.55-1.30) H Estimat Glomerular Filtration Rate 33.6 mL/min (>60) Glucose Level 100 MG/DL (74-106) Uric Acid 7.7 MG/DL (2.6-7.2) H Calcium Level 9.1 MG/DL (8.5-10.1) Magnesium Level 2.5 MG/DL (1.8-2.4) H Current Medications Medications (Trade) Dose Ordered Sig/David Route PRN Reason Start Time Stop Time Status Last Admin Dose Admin Acetaminophen (Tylenol) 650 mg Q6H PRN ORAL Mild Pain (Pain Scale 1-3) 11/18/19 21:30 12/18/19 21:29 11/19/19 12:19 Albuterol Sulfate (Proventil MDI) 2 puff Q4H PRN INH Shortness of Breath 11/18/19 21:30 02/16/20 21:29 Amlodipine Besylate (Norvasc) 5 mg DAILY ORAL 11/26/19 09:00 12/26/19 08:59 11/28/19 09:00 Clonidine HCl (Catapres Tab) 0.1 mg EVERY 6 HOURS ORAL 11/19/19 00:00 02/17/20 00:00 11/27/19 17:48 Heparin Sodium (Porcine) (Heparin 5000 units/ml) 5,000 units BID@0900,2100 SUBQ 11/19/19 09:00 01/03/20 08:59 11/28/19 09:00 Hydralazine HCl (Apresoline) 10 mg Q6H PRN ORAL PRN SBP>160 11/19/19 12:45 02/17/20 12:44 Magnesium Hydroxide (Mom) 30 ml TIDPRN PRN ORAL Constipation 11/25/19 12:45 12/25/19 12:44 Magnesium Oxide (Mag-Ox 400mg) 400 mg BID ORAL 11/20/19 18:00 12/20/19 17:59 11/28/19 09:00 Risperidone (RisperDAL) 2 mg DAILY ORAL 11/19/19 09:00 01/03/20 08:59 11/28/19 09:00 Sodium Chloride 1,000 ml @ 100 mls/hr Q10H IV 11/28/19 00:00 12/28/19 00:00 11/28/19 10:26 Tamsulosin HCl (Flomax) 0.4 mg DAILY ORAL 11/19/19 09:00 12/19/19 08:59 11/28/19 09:00 Marcela Zafar MD Nov 28, 2019 11:00
--- NOTE | 2019-11-28 12:53 | General Progress Note ---
Assessment/Plan Problem List: (1) CKD (chronic kidney disease) stage 1, GFR 90 ml/min or greater ICD Codes: N18.1 - Chronic kidney disease, stage 1 SNOMED: 944545875 (2) CVA (cerebral vascular accident) ICD Codes: I63.9 - Cerebral infarction, unspecified SNOMED: 822287174 (3) Encephalopathy acute ICD Codes: G93.40 - Encephalopathy acute SNOMED: 2980728 (4) DINA (acute kidney injury) ICD Codes: N17.9 - DINA (acute kidney injury) SNOMED: 33478915 (5) Pneumonia due to COVID-19 virus ICD Codes: U07.1 - COVID-19; J12.89 - Other viral pneumonia SNOMED: 150790953, 170409804 Status: stable, progressing Assessment/Plan: Continue supplemental oxygen as needed Antiplatelet treatment. Monitor lites and renal function. keep dry. Cardiology and infectious disease follow-up. dvt and stress ulcer prophylaxis. repeat covid swab. Plan of care discussed with patient at the bedside. Patient agrees with plan of care. repeat labs in the arm. kayexylate x 1 ordered. dc risperdal- pt very drowsy Subjective ROS Limited/Unobtainable: Yes Constitutional: Reports: malaise, weakness HEENT: Reports: no symptoms Cardiovascular: Reports: no symptoms Respiratory: Reports: cough Gastrointestinal/Abdominal: Reports: no symptoms Genitourinary: Reports: no symptoms Neurologic/Psychiatric: Reports: depressed, emotional problems Endocrine: Reports: no symptoms Hematologic/Lymphatic: Reports: no symptoms Allergies: Coded Allergies: No Known Allergies (Unverified , 03/14/12) All Systems: reviewed and negative except above Subjective No overnight events. Stable on 2 to 3 L of nasal cannula. Remains somnolent and sleepy. No fevers or chills. Minimal cough. Patient is on chronic oxygen at the senior living facility. Completed hydroxychloroquine. Chest x-ray still with bilateral infiltrates.chf?. on ivf. K up. cr trending down with ivf. Objective Last 24 Hour Vital Signs Date Time Temp Pulse Resp B/P (MAP) Pulse Ox O2 Delivery O2 Flow Rate FiO2 11/28/19 09:00 61 144/80 11/28/19 09:00 Nasal Cannula 4.0 11/28/19 08:00 97.5 61 18 144/80 (101) 94 11/28/19 05:15 111/71 11/28/19 04:00 97.8 60 19 111/71 (84) 97 11/28/19 00:00 97.7 61 19 105/67 (80) 90 11/28/19 00:00 105/67 11/27/19 21:00 Nasal Cannula 4.0 11/27/19 21:00 Nasal Cannula 4.0 11/27/19 20:00 99.1 64 24 105/65 (78) 93 11/27/19 17:48 118/71 11/27/19 16:00 98.1 76 20 118/71 (87) 96 Intake and Output 11/27/19 11/28/19 19:00 07:00 Intake Total 250 ml Balance 250 ml Intake Oral 250 ml # Voids 2 2 # Bowel Movements 1 2 Laboratory Tests 11/28/19 05:00: Sodium Level 140, Potassium Level 5.6H, Chloride Level 105, Carbon Dioxide Level 27, Anion Gap 8, Blood Urea Nitrogen 58H, Creatinine 1.5H, Estimat Glomerular Filtration Rate 33.6, Glucose Level 100, Uric Acid 7.7H, Calcium Level 9.1, Magnesium Level 2.5H Height (Feet): 5 Height (Inches): 2.00 Weight (Pounds): 109 Objective General Appearance: WD/WN, alert Neck: supple Cardiovascular: regular rhythm Respiratory/Chest: chest wall non-tender, lungs clear, normal breath sounds, no respiratory distress Abdomen: normal bowel sounds, non tender, soft, no organomegaly Edema: no edema noted Arm (L), no edema noted Arm (R), no edema noted Leg (L), no edema noted Leg (R), no edema noted Pedal (L), no edema noted Pedal (R), no edema noted Generalized Bhavesh Ovalle MD Nov 28, 2019 12:53
[2019-11-28] MEDS ORDERED: Sodium Polystyrene Sulfonate 15gm Powder ORAL ONE (13:00)
--- NOTE | 2019-11-28 13:30 | NUR ---
NURSE NOTES: Patient O2 ranges from 83-86, Dr Ovalle aware, noted and carried out.
--- NOTE | 2019-11-28 13:53 | NUR ---
CASE MANAGEMENT:REVIEW 11/28/19 SI: COVID 19 PNA. UTI 96.6 79 18 115/64 94% ON 4L/NC K+5.6 BUN+58 CR+1.5 IS: IVF@100/HR MAG OXIDE PO BID NORVASC PO BID FLOMAX PO QD HEPARIN SQ Q12 CLONIDINE PO Q6HRS : TELEMETRY STATUS DCP: FROM [facility] PLAN: MAINTAIN DROPLET PRECAUTIONS DISCHARGE TO SNF HELD DUE TO LOW GRADE FEVER OF 99.1 LAST NIGHT ~ SNF WOULD NOT ACCEPT
--- NOTE | 2019-11-28 13:59 | NUR ---
DISCHARGE PLANNING PLAN WAS FOR PATIENT TO RETURN TO [facility] TODAY. CLOTH PICKER, ZAHRA, AT [facility] FELT A TEMP OF 99.1 WAS CONSIDERED A LOW GRADE TEMP AND WOULD LIKE US TO OBSERVE PATIENT ANOTHER DAY OR TWO BEFORE RETURNING TO SNF. DR ZEPEDA HAS BEEN UPDATED
--- NOTE | 2019-11-28 15:06 | NUR ---
RADIOLOGY DEPT, CHEST X-RAY DONE.-P.DYE
--- NOTE | 2019-11-28 16:08 | Diagnostic Imaging Report ---
Indication: Cough Technique: One view of the chest Comparison: 11/24/2019 Findings: Less optimal inspiration currently. Bilateral interstitial disease appears similar to the previous exam. There is increasing obscuration of left hemidiaphragm, which may indicate increasing consolidation at the left lung base or increasing pleural fluid. Bilateral upper lobe emphysema is again demonstrated. Impression: Bilateral interstitial infiltrates versus edema, appearing similar to prior study of 11/24/2019 Increasing left basilar opacity, may indicate increasing consolidation, pleural fluid, or both.
--- NOTE | 2019-11-28 17:44 | NUR ---
NURSE NOTES: Patient O2 sat at 89, O2 via NC at 5LPM. Dr Ovalle made aware, awaiting orders.
[2019-11-28] MEDS ORDERED: Vancomycin 1gm/D5W 275ml IVPB ONE ×2 (18:30)
--- NOTE | 2019-11-28 19:41 | NUR ---
HAND-OFF: Report given to Karen. Dr Ovalle just gave orders to transfer patient to [facility], endorsed Karen.
--- NOTE | 2019-11-28 19:53 | NUR ---
NURSE NOTES: Received patient in bed, oriented x1, non verbal, bed bound, IV site is clean dry and intact, on NC at 5 liters, low saturation noted, MD is aware, ordered to transfer patient to SDU. Call light is within reach, bed is lowered, locked, alarm is on. Will continue to monitor for comfort and safety.
[2019-11-28] MEDS: Piperacillin/Tazobactam 3.375 GM in NS 110 ML IVPB SCH (20:45)
--- NOTE | 2019-11-28 21:37 | NUR ---
NURSE NOTES: Patient is transferred to SDU, patient is stable at time of discharge.
--- NOTE | 2019-11-28 21:37 | NUR ---
NURSE NOTES: Received patient form CONNER Alexander. Patient is aaox 0, vss, no acute distress, and on deputy grand [employer]. Patient is cooperative and can help turn herself. Patient is on 4L nasal cannula saturating at 97%. Bilateral heel blanchable redness and blanchable sacral redness. Iv on left forearm. Bad at its lowest position, call light in reach and x3 3 bed rails are up. Will continue to monitor and contact the MD if conditions change.
--- NOTE | 2019-11-28 22:15 | Consultation ---
DATE OF CONSULTATION: 11/28/2019 PULMONARY CONSULTATION REASON FOR ADMISSION: COVID pneumonia. HISTORY OF PRESENT ILLNESS: The patient is a 79-year-old female. The patient with longstanding history of COPD, chronic kidney disease. The patient was admitted from the facility. The patient was seen, evaluated, and now has been at [facility] for several days. The patient's COVID test has been positive. She is currently off antibiotics, but continues to be on isolation due to repeated testing that showed that she still has COVID positive. The patient is overall in respiratory distress, comfortable, and not significantly congested at this time. The patient was admitted on 11/18/2019. The patient has been on and off oxygen. Chest x-ray with some patchy infiltrate initially. The patient's care discussed and reviewed and the chart reviewed in detail. PAST MEDICAL HISTORY: Notable for Parkinson's disease, bipolar disorder, hypertension, COPD, chronic kidney disease, stroke, pacemaker. MEDICATIONS: Reviewed. ALLERGIES: Reviewed. SOCIAL HISTORY: jail patient, nonsmoker, nondrinker. REVIEW OF SYSTEMS: Difficult to obtain. FAMILY HISTORY: Difficult to obtain. PHYSICAL EXAMINATION: GENERAL: A well-developed female. The patient is currently without significant distress. The patient, however, does note to have some oxygen desaturation. She is currently on 4 liters. VITAL SIGNS: Temperature 98.6, respiratory rate 18, blood pressure 130/81, heart rate 79. HEENT: Negative. Extraocular movements are grossly intact. NECK: Supple. LUNGS: Moderate breath sounds, occasional rhonchi . CARDIAC: S1, S2. Regular rate and rhythm without murmurs, rubs, gallops. ABDOMEN: Soft, nontender, nondistended. EXTREMITIES: No cyanosis or clubbing. No significant edema. NEUROLOGIC: Grossly nonfocal, weak, and confuse. LABORATORY AND DIAGNOSTIC DATA: Laboratory data reviewed and noted infiltrates bilaterally when compared to prior overall without significant change. Lab data otherwise notable for white count 7.4, hemoglobin 8.8, platelets are normal. Chemistries, BUN 58, creatinine 1.5. Blood gas is a pH 7.46/32,62 IMPRESSION: 1. Bilateral pulmonary infiltrates, COVID positive, currently off antibiotics. 2. Possible underlying pulmonary edema. 3. Chronic renal failure. 4. Toxic metabolic encephalopathy. 5. Hypoxemia RECOMMENDATIONS: Supportive care as per ID. The patient is currently off antibiotics. Monitor oxygen needs were concerned and edema has not yet resolved. DVT prophylaxis. We will follow clinically. Of note, the patient was just started on IV Zosyn, we will follow x-ray and followup imaging. Albuterol inhaler as needed and assist with further pulmonary intervention as needed. Collin Albarado M.D. DR: Young JOB#: [id number] CC: HEVER
[2019-11-29] VITALS (7 sets, daily range): BP systolic 103–139; BP diastolic 61–81
[2019-11-29] MEDS: Piperacillin/Tazobactam 3.375 GM in NS 110 ML IVPB SCH ×3 (03:34→20:56)
--- NOTE | 2019-11-29 04:44 | Progress Note ---
DATE: 11/28/2019 CARDIOLOGY PROGRESS NOTE SUBJECTIVE: The patient is congested. Moderate secretions. Minimal cough and remains on low-dose oxygen by nasal cannula. At baseline, she is chronically hypoxic. She had an abnormal potassium level and was treated accordingly. OBJECTIVE: LUNGS: Bilateral breath sounds. Rhonchi. CARDIAC: Regular rhythm and rate. Normal S1, S2. Monitored rhythm, paced. ABDOMEN: Soft. EXTREMITIES: Trace edema. DIAGNOSTIC DATA: Chest x-ray revealed increased infiltrate on the left base. IMPRESSION: 1. COVID-19 pneumonia. 2. Sepsis. 3. Hypoxia. 4. Acute on chronic kidney injury. 5. Hyperkalemia. 6. Permanent pacemaker. 7. Hypertensive heart disease. 8. Acute on chronic diastolic congestive heart failure. PLAN: 1. Trend natriuretic peptide essay. 2. Assess for diuresis daily, based on clinical parameters. 3. Kayexalate and repeat potassium level. 4. Nasal oxygen. 5. Respiratory hygiene. 6. No additional antiviral therapy as she has completed her course of hydroxychloroquine. Hadley Rowland M.D. DR: Danial JOB#: [id number] CC: HEVER
[2019-11-29 06:53] LABS: ANION GAP 13 mmol/L (5-15); BLOOD UREA NITROGEN 49 mg/dL (7-18); CALCIUM 8.9 MG/DL (8.5-10.1); CARBON DIOXIDE 29 MMOL/L (21-32); CHLORIDE 102 MMOL/L (98-107); CREATININE 1.6 MG/DL (0.55-1.30); POTASSIUM 4.3 MMOL/L (3.5-5.1); SODIUM 143 MMOL/L (136-145)
--- NOTE | 2019-11-29 07:20 | NUR ---
HAND-OFF: Report given to CONNER Ashford.
--- NOTE | 2019-11-29 07:52 | NUR ---
RD ASSESSMENT & RECOMMENDATIONS SEE CARE ACTIVITY FOR COMPLETE ASSESSMENT DAILY ESTIMATED NEEDS: Needs based on cardiac, pulmonary 57kg 25-30 kcals/kg 4381-5855 total kcals 1.25-1.5 g protein/kg 71-86 g total protein Fluid per MD, on lasix mL/kg total fluid mLs NUTRITION DIAGNOSIS: Swallowing difficulty r/t h/o CVA as evidenced by pt on ms finely chopped texture diet, w/ variable PO intake. CURRENT DIET: Regular ms finely chopped PO DIET RECOMMENDATIONS: Maintain liberalized regular diet w/ poor to variable po intake ADDITIONAL RECOMMENDATIONS: 1) YOKE SETTER eval for appropriate texture 2) DC mag oxide 400mg BID -> mag level elevated (2.5) 3) Ensure TID with poor to variable po intake + snacks as able 4) Skin integrity -> add MVI x 1, Vit C 250mg QD Sudhir BID if tolerated
[2019-11-29] MEDS: Tamsulosin 0.4mg cap ORAL SCH (08:34)
[2019-11-29] MEDS: Magnesium Oxide 400mg tab ORAL SCH ×2 (08:44→17:01)
[2019-11-29] MEDS: Heparin 5000 units/ml inj SUBQ SCH ×2 (08:45→20:54)
--- NOTE | 2019-11-29 09:09 | NUR ---
NURSE NOTES: Patient unable to swallow Tamsulosin capsule, made Dr. Ovalle aware. MD acknowledged and ordered a swallow evaluation. Order entered, noted, and carried out. Will continue to monitor patient.
--- NOTE | 2019-11-29 09:30 | NUR ---
NURSE NOTES: Noted patient restarted on IV antibiotics per Dr. Ovalle, per ID notes to "observe off antibiotics." Dr. Ovalle at nurse station, made aware of ID notes to observe off antibiotics. Dr. Ovalle acknowledged, keep orders at this time, follow up with ID if would like to continue IV antibiotics. Noted. Will proceed with orders as instructed by Dr. Ovalle. Will continue to monitor patient.
--- NOTE | 2019-11-29 10:00 | NUR ---
NURSE NOTES: Dr. Zafar, ID, at nurse station, made aware of Dr. Ovalle new IV antibiotic orders. Dr. Zafar acknowledged and informed this nurse they will look into orders. Noted. Will continue to monitor patient.
--- NOTE | 2019-11-29 10:29 | NUR ---
NURSE NOTES: Assessed patient's skin integrity, all bony prominences, no skin issues noted. Patient is able to turn self. Able to follow simple commands. Will continue to monitor patient.
--- NOTE | 2019-11-29 10:43 | Infectious Diseases Prog Note ---
Assessment/Plan Assessment/Plan antibiotics : vancomycin iv, zosyn P 1. covid 19 pneumonia test positive 4.7.20, 4.13.20 s/p rx with hydroxychloroquine 2. e.coli UTI s/p rx 3. COPD 4. schizophrenia 5. CVA 6. pneumonia increasing P 1. iv vancomycin, zosyn started 2. sputum culture 3. continue isolation Subjective ROS Limited/Unobtainable: Yes Allergies: Coded Allergies: No Known Allergies (Unverified , 03/14/12) Objective Vital Signs Last 24 Hour Vital Signs Date Time Temp Pulse Resp B/P (MAP) Pulse Ox O2 Delivery O2 Flow Rate FiO2 11/29/19 08:44 67 139/81 11/29/19 08:00 97.0 67 19 139/81 (100) 98 11/29/19 08:00 Nasal Cannula 4.0 11/29/19 07:41 61 11/29/19 06:00 110/61 11/29/19 04:00 97.5 68 19 110/61 (77) 96 11/29/19 04:00 66 11/29/19 04:00 Nasal Cannula 4.0 11/29/19 01:36 113/74 11/29/19 00:00 97.1 66 20 113/74 (87) 95 11/29/19 00:00 Nasal Cannula 4.0 11/28/19 23:41 60 11/28/19 21:37 71 11/28/19 21:35 Nasal Cannula 4.0 11/28/19 21:30 97.5 73 21 106/65 (79) 97 11/28/19 20:00 97.4 69 22 119/74 (89) 89 11/28/19 17:42 130/81 11/28/19 16:00 98.2 79 19 130/81 (97) 89 11/28/19 12:00 96.6 79 18 115/64 (81) 86 11/28/19 12:00 115/64 Height (Feet): 5 Height (Inches): 2.00 Weight (Pounds): 109 Laboratory Tests Test 11/28/19 14:08 11/29/19 05:50 Arterial Blood pH 7.464 (7.350-7.450) Arterial Blood Partial Pressure CO2 32.0 mmHg (35.0-45.0) L Arterial Blood Partial Pressure O2 62.6 mmHg (75.0-100.0) L Arterial Blood HCO3 22.5 mmol/L (22.0-26.0) Arterial Blood Oxygen Saturation 90.3 % (95-100) L Arterial Blood Base Excess -0.9 (-2-2) Meliton Test Positive Sodium Level 143 MMOL/L (136-145) Potassium Level 4.3 MMOL/L (3.5-5.1) Chloride Level 102 MMOL/L (98-107) Carbon Dioxide Level 29 MMOL/L (21-32) Anion Gap 13 mmol/L (5-15) Blood Urea Nitrogen 49 mg/dL (7-18) H Creatinine 1.6 MG/DL (0.55-1.30) H Estimat Glomerular Filtration Rate 31.2 mL/min (>60) Glucose Level 101 MG/DL (74-106) Calcium Level 8.9 MG/DL (8.5-10.1) Pro-B-Type Natriuretic Peptide 236 pg/mL (0-125) H Random Vancomycin Level 15.0 ug/mL Current Medications Medications (Trade) Dose Ordered Sig/David Route PRN Reason Start Time Stop Time Status Last Admin Dose Admin Acetaminophen (Tylenol) 650 mg Q6H PRN ORAL Mild Pain (Pain Scale 1-3) 11/18/19 21:30 12/18/19 21:29 11/19/19 12:19 Albuterol Sulfate (Proventil MDI) 2 puff Q4H PRN INH Shortness of Breath 11/18/19 21:30 02/16/20 21:29 Amlodipine Besylate (Norvasc) 5 mg DAILY ORAL 11/26/19 09:00 12/26/19 08:59 11/29/19 08:44 Clonidine HCl (Catapres Tab) 0.1 mg EVERY 6 HOURS ORAL 11/19/19 00:00 02/17/20 00:00 11/29/19 01:36 Heparin Sodium (Porcine) (Heparin 5000 units/ml) 5,000 units BID@0900,2100 SUBQ 11/19/19 09:00 01/03/20 08:59 11/29/19 08:45 Hydralazine HCl (Apresoline) 10 mg Q6H PRN ORAL PRN SBP>160 11/19/19 12:45 02/17/20 12:44 Magnesium Hydroxide (Mom) 30 ml TIDPRN PRN ORAL Constipation 11/25/19 12:45 12/25/19 12:44 Magnesium Oxide (Mag-Ox 400mg) 400 mg BID ORAL 11/20/19 18:00 12/20/19 17:59 11/29/19 08:44 Piperacillin Sod/ Tazobactam Sod 3.375 gm/Sodium Chloride 110 ml @ 27.5 mls/hr Q8H IVPB 11/28/19 20:00 12/05/19 19:59 11/29/19 03:34 Tamsulosin HCl (Flomax) 0.4 mg DAILY ORAL 11/19/19 09:00 12/19/19 08:59 11/28/19 09:00 Vancomycin HCl (Vanco rx to dose) 1 ea DAILY PRN MISC Per rx protocol 11/28/19 18:00 12/28/19 17:59 Vancomycin HCl 1 gm/Dextrose 275 ml @ 183.708 mls/hr ONCE ONCE IVPB 11/29/19 12:00 11/29/19 13:29 Marcela Zafar MD Nov 29, 2019 10:43
[2019-11-29] MEDS ORDERED: Vancomycin 1gm/D5W 275ml IVPB ONE ×2 (12:00)
--- NOTE | 2019-11-29 13:27 | General Progress Note ---
Assessment/Plan Problem List: (1) CKD (chronic kidney disease) stage 1, GFR 90 ml/min or greater ICD Codes: N18.1 - Chronic kidney disease, stage 1 SNOMED: 230953049 (2) CVA (cerebral vascular accident) ICD Codes: I63.9 - Cerebral infarction, unspecified SNOMED: 312184870 (3) Encephalopathy acute ICD Codes: G93.40 - Encephalopathy acute SNOMED: 6753078 (4) DINA (acute kidney injury) ICD Codes: N17.9 - DINA (acute kidney injury) SNOMED: 73358295 (5) Pneumonia due to COVID-19 virus ICD Codes: U07.1 - COVID-19; J12.89 - Other viral pneumonia SNOMED: 506881504, 401868856 Status: stable, progressing Assessment/Plan: Continue supplemental oxygen as needed. prn diuresis. monitor lytes. Antiplatelet treatment. keep dry. Cardiology and infectious disease follow-up. dvt and stress ulcer prophylaxis. Plan of care discussed with patient at the bedside. Subjective ROS Limited/Unobtainable: Yes Constitutional: Reports: malaise, weakness HEENT: Reports: no symptoms Cardiovascular: Reports: no symptoms Respiratory: Reports: cough, shortness of breath Gastrointestinal/Abdominal: Reports: poor appetite, poor fluid intake Genitourinary: Reports: no symptoms Neurologic/Psychiatric: Reports: pre-existing deficit Endocrine: Reports: no symptoms Hematologic/Lymphatic: Reports: anemia Allergies: Coded Allergies: No Known Allergies (Unverified , 03/14/12) All Systems: reviewed and negative except above Subjective Transfered to stepdown unit because of worsening hypoxia and urgency. Chest x- ray shows worsening left basilar infiltrate. Received a single dose of Lasix last night with good urine output. O2 saturations improved this morning. Patient is more alert but having some difficulty with swallowing. Objective Last 24 Hour Vital Signs Date Time Temp Pulse Resp B/P (MAP) Pulse Ox O2 Delivery O2 Flow Rate FiO2 11/29/19 13:10 124/72 11/29/19 08:44 67 139/81 11/29/19 08:00 97.0 67 19 139/81 (100) 98 11/29/19 08:00 Nasal Cannula 4.0 11/29/19 07:41 61 11/29/19 06:00 110/61 4/18/20 04:00 97.5 68 19 110/61 (77) 96 11/29/19 04:00 66 11/29/19 04:00 Nasal Cannula 4.0 11/29/19 01:36 113/74 11/29/19 00:00 97.1 66 20 113/74 (87) 95 11/29/19 00:00 Nasal Cannula 4.0 11/28/19 23:41 60 11/28/19 21:37 71 11/28/19 21:35 Nasal Cannula 4.0 11/28/19 21:30 97.5 73 21 106/65 (79) 97 11/28/19 20:00 97.4 69 22 119/74 (89) 89 11/28/19 17:42 130/81 11/28/19 16:00 98.2 79 19 130/81 (97) 89 Intake and Output 11/28/19 11/29/19 19:00 07:00 Intake Total 400 ml 177.000 ml Balance 400 ml 177.000 ml IV Total 177.000 ml Other 400 ml # Voids 1 # Bowel Movements 1 1 Laboratory Tests 11/28/19 14:08: Arterial Blood pH 7.464H, Arterial Blood Partial Pressure CO2 32.0L, Arterial Blood Partial Pressure O2 62.6L, Arterial Blood HCO3 22.5, Arterial Blood Oxygen Saturation 90.3L, Arterial Blood Base Excess -0.9, Meliton Test Positive 11/29/19 05:50: Sodium Level 143, Potassium Level 4.3, Chloride Level 102, Carbon Dioxide Level 29, Anion Gap 13, Blood Urea Nitrogen 49H, Creatinine 1.6H, Estimat Glomerular Filtration Rate 31.2, Glucose Level 101, Calcium Level 8.9, Pro-B-Type Natriuretic Peptide 236H, Random Vancomycin Level 15.0 Height (Feet): 5 Height (Inches): 2.00 Weight (Pounds): 109 Objective General Appearance: WD/WN, alert Neck: supple Cardiovascular: regular rhythm Respiratory/Chest: chest wall non-tender, lungs clear, normal breath sounds, no respiratory distress Abdomen: normal bowel sounds, non tender, soft, no organomegaly Edema: no edema noted Arm (L), no edema noted Arm (R), no edema noted Leg (L), no edema noted Leg (R), no edema noted Pedal (L), no edema noted Pedal (R), no edema noted Generalized Bhavesh Ovalle MD Nov 29, 2019 13:27
--- NOTE | 2019-11-29 14:25 | NUR ---
NURSE NOTES: Performing full body skin assessment per protocol and patient noted with medium bulge on umbilical cord area, soft to touch when palpated, no pain noted when palpated. VS: BP 124/72, HR 60, SpO2 96% on 2LNC. Contacted and informed Dr. Ovalle of assessment. Dr. Ovalle acknowledged and gave no new orders at this time. Will continue to monitor patient.
--- NOTE | 2019-11-29 19:17 | NUR ---
HAND-OFF: Report given to CONNER Barry.
[2019-11-29] MEDS ORDERED: Acetaminophen 500mg (ES) tab ORAL PRN (19:18)
--- NOTE | 2019-11-29 19:18 | NUR ---
NURSE NOTES: Patient received from CONNER Ashford. Patient is aaox 1, vss with no acute distress and on personnel monitor. Patient is restless and clean. Isolation precaution in place. Patient on 2L nasal cannula, Purewick in place, and IV on left AC 18g. Pacemaker possibly on upper left chest, lower right abdominal protrusion that is round and soft. Skin is intact with blanchable sacral and heels. Bed at its lowest position, call light in reach and x3 bed rails are up. Will continue to monitor.
[2019-11-29] MEDS ORDERED: Milk of Magnesia 30ml Ud ORAL PRN (19:24)
[2019-11-29] MEDS ORDERED: Albuterol 90mcg Inhaler 8gm INH PRN (21:30)
--- NOTE | 2019-11-29 22:48 | Pulmonology Progress Note ---
Assessment/Plan Assessment/Plan Pulmonary Progress Note: HPI: The patient is a 79-year-old woman with longstanding history of COPD, chronic kidney disease, noted to have positive COVID test. The patient is comfortable, and not significantly congested at this time. The patient was admitted on 11/18/2019. The patient has been on and off oxygen. Chest x-ray with some patchy infiltrate initially. The patient's care discussed and reviewed and the chart reviewed in detail. PAST MEDICAL HISTORY: Notable for Parkinson's disease, bipolar disorder, hypertension, COPD, chronic kidney disease, stroke, pacemaker. MEDICATIONS: Reviewed. ALLERGIES: Reviewed. PHYSICAL EXAMINATION: GENERAL: A well-developed female. The patient is currently without significant distress. The patient, however, does note to have some oxygen desaturation. She is currently on 4 liters. VITAL SIGNS NOTED HEENT: Negative. Extraocular movements are grossly intact. NECK: Supple. LUNGS: Moderate breath sounds, occasional rhonchi . CARDIAC: S1, S2. Regular rate and rhythm without murmurs, rubs, gallops. ABDOMEN: Soft, nontender, nondistended. EXTREMITIES: No cyanosis or clubbing. No significant edema. NEUROLOGIC: Grossly nonfocal, weak, and confuse. LABORATORY AND DIAGNOSTIC DATA: Laboratory data reviewed and noted infiltrates bilaterally when compared to prior overall without significant change. Lab data otherwise notable for white count 7.4, hemoglobin 8.8, platelets are normal. Chemistries, BUN 58, creatinine 1.5. Blood gas noted IMPRESSION: 1. Bilateral pulmonary infiltrates, COVID positive 2. Possible underlying pulmonary edema. 3. Chronic renal failure. 4. Toxic metabolic encephalopathy. 5. Hypoxemia. RECOMMENDATIONS: Supportive care as per ID. The patient is currently off antibiotics. Monitor oxygen needs were concerned and edema has not yet resolved. DVT prophylaxis. We will follow clinically. IV Zosyn, follow x- ray. Albuterol inhaler as needed, further pulmonary intervention as needed. Subjective ROS Limited/Unobtainable: No Allergies: Coded Allergies: No Known Allergies (Unverified , 03/14/12) Objective Last 24 Hour Vital Signs Date Time Temp Pulse Resp B/P (MAP) Pulse Ox O2 Delivery O2 Flow Rate FiO2 11/29/19 20:00 97.2 61 19 128/74 (92) 98 11/29/19 17:00 103/64 11/29/19 16:00 Nasal Cannula 4.0 11/29/19 16:00 2.0 11/29/19 15:55 97.3 60 20 103/64 (77) 97 11/29/19 15:14 60 11/29/19 13:10 124/72 11/29/19 12:00 60 11/29/19 12:00 97.0 60 19 124/72 (89) 96 11/29/19 12:00 3.0 11/29/19 12:00 Nasal Cannula 4.0 11/29/19 08:44 67 139/81 11/29/19 08:00 4.0 11/29/19 08:00 97.0 67 19 139/81 (100) 98 11/29/19 08:00 Nasal Cannula 4.0 11/29/19 07:41 61 11/29/19 06:00 110/61 11/29/19 04:00 97.5 68 19 110/61 (77) 96 11/29/19 04:00 66 11/29/19 04:00 Nasal Cannula 4.0 11/29/19 01:36 113/74 11/29/19 00:00 97.1 66 20 113/74 (87) 95 11/29/19 00:00 Nasal Cannula 4.0 11/28/19 23:41 60 Intake and Output 11/28/19 11/29/19 19:00 07:00 Intake Total 400 ml 177.000 ml Balance 400 ml 177.000 ml IV Total 177.000 ml Other 400 ml # Voids 1 # Bowel Movements 1 1 Laboratory Tests 11/29/19 05:50: Sodium Level 143, Potassium Level 4.3, Chloride Level 102, Carbon Dioxide Level 29, Anion Gap 13, Blood Urea Nitrogen 49H, Creatinine 1.6H, Estimat Glomerular Filtration Rate 31.2, Glucose Level 101, Calcium Level 8.9, Pro-B-Type Natriuretic Peptide 236H, Random Vancomycin Level 15.0 Current Medications Medications (Trade) Dose Ordered Sig/David Route PRN Reason Start Time Stop Time Status Last Admin Dose Admin Acetaminophen (Tylenol) 650 mg Q6H PRN ORAL Mild Pain (Pain Scale 1-3) 11/29/19 19:18 12/18/19 19:17 Albuterol Sulfate (Proventil MDI) 2 puff Q4H PRN INH Shortness of Breath 11/29/19 21:30 02/16/20 21:29 Amlodipine Besylate (Norvasc) 5 mg DAILY ORAL 11/30/19 09:00 12/26/19 08:59 Clonidine HCl (Catapres Tab) 0.1 mg EVERY 6 HOURS ORAL 11/30/19 00:00 02/17/20 00:00 Heparin Sodium (Porcine) (Heparin 5000 units/ml) 5,000 units BID@0900,2100 SUBQ 11/29/19 21:00 01/03/20 08:59 11/29/19 20:54 Hydralazine HCl (Apresoline) 10 mg Q6H PRN ORAL PRN SBP>160 11/30/19 00:45 02/17/20 12:44 Magnesium Hydroxide (Mom) 30 ml TIDPRN PRN ORAL Constipation 11/29/19 19:24 12/29/19 19:23 Magnesium Oxide (Mag-Ox 400mg) 400 mg BID ORAL 11/30/19 09:00 12/20/19 17:59 Piperacillin Sod/ Tazobactam Sod 3.375 gm/Sodium Chloride 110 ml @ 27.5 mls/hr Q8H IVPB 11/29/19 20:00 12/05/19 19:59 11/29/19 20:56 Risperidone (RisperDAL) 2 mg DAILY ORAL 11/30/19 09:00 01/14/20 08:59 Tamsulosin HCl (Flomax) 0.4 mg DAILY ORAL 11/30/19 09:00 12/19/19 08:59 Vancomycin HCl (Vanco rx to dose) 1 ea DAILY PRN MISC Per rx protocol 11/30/19 09:00 12/28/19 17:59 Hadley Mclaughlin MD Nov 29, 2019 22:48
--- NOTE | 2019-11-30 | NUR ---
NURSE NOTES: Patient is awake with no sign of distress.
[2019-11-30] MEDS ORDERED: HydrALAZINE 10mg Tab ORAL PRN (00:45)
--- NOTE | 2019-11-30 03:24 | NUR ---
NURSE NOTES: Patient is up and trying to get out of bed. Cleaned patient and patient was calmer and resting. Will continue to monitor.
--- NOTE | 2019-11-30 03:48 | NUR ---
NURSE NOTES: Unable to collect sputum culture. No sputum to collect at this time.
[2019-11-30 04:00] VITALS: BP 112/70
--- NOTE | 2019-11-30 04:15 | Progress Note ---
DATE: 11/29/2019 CARDIOLOGY PROGRESS NOTE SUBJECTIVE: The patient remains on direct observation unit. She had increasing congestion and shortness of breath throughout the evening. Diuresis was initiated. Respiratory hygiene continued and antimicrobials for pulmonary infiltrate ongoing. PHYSICAL EXAMINATION: VITAL SIGNS: Blood pressure 103/64, pulse 60, respirations 19. Monitored rhythm, paced. LUNGS: Bilateral breath sounds with rhonchi and few rales. CARDIAC: Regular rhythm and rate. Normal S1, S2 with a 1/6 systolic apical murmur. ABDOMEN: Soft, nontender. EXTREMITIES: No edema. LABORATORY DATA: Oxygen saturation on 4 liters is 96%. Chest x-ray yesterday with increasing infiltrates as well and possible edema. Sodium 143, potassium 4.3, bicarb 29, BUN 49, and creatinine 1.6. Pro-natriuretic peptide 236. White count 7.4 and hemoglobin 8.8. IMPRESSION: Permanent pacemaker with stable function. PLAN: 1. Monitor clinical parameters, cardiorenal parameters and initiate diuresis as needed. 2. Trend natriuretic peptide essay. 3. Antimicrobials. 4. Respiratory hygiene. 5. Cardiac monitoring. 6. DVT prophylaxis. Hadley Rowland M.D. DR: LUIS ENRIQUE JOB#: [id number] CC:
[2019-11-30] MEDS: Piperacillin/Tazobactam 3.375 GM in NS 110 ML IVPB SCH ×3 (04:55→21:04)
--- NOTE | 2019-11-30 07:16 | NUR ---
HAND-OFF: Report given to CONNER Ashford.
--- NOTE | 2019-11-30 07:20 | NUR ---
NURSE NOTES: Received report from CONNER Holt. Patient is resting in bed, in stable condition. No s/sx of SOB, breathing is even and unlabored, pt is sleeping. Observed no presence of pain or discomfort at this time. Bed is in lowest position, brakes engaged. Call light is kept within easy reach. Will continue to monitor patient.
[2019-11-30 07:49] VITALS: BP 93/60
--- NOTE | 2019-11-30 08:00 | NUR ---
NURSE NOTES: Dr. Ovalle at nurse station, informed MD patient is on 2LNC with SpO2 98%, no SOB. Dr. Ovalle acknowledged and ordered to transfer patient to [facility]. Informed Dr. Ovalle that patient's last magnesium level is 2.5 and pt is taking mag-ox [address] Ovalle acknowledged, per MD will look into orders. Noted. Will continue to monitor patient.
[2019-11-30] MEDS: Magnesium Oxide 400mg tab ORAL SCH ×2 (08:37→17:05)
[2019-11-30] MEDS: Heparin 5000 units/ml inj SUBQ SCH ×2 (08:38→21:08)
[2019-11-30] MEDS ORDERED: Tamsulosin 0.4mg cap ORAL SCH (09:00)
--- NOTE | 2019-11-30 10:03 | General Progress Note ---
Assessment/Plan Problem List: (1) CKD (chronic kidney disease) stage 1, GFR 90 ml/min or greater ICD Codes: N18.1 - Chronic kidney disease, stage 1 SNOMED: 672734437 (2) CVA (cerebral vascular accident) ICD Codes: I63.9 - Cerebral infarction, unspecified SNOMED: 621404011 (3) Encephalopathy acute ICD Codes: G93.40 - Encephalopathy acute SNOMED: 3381559 (4) DINA (acute kidney injury) ICD Codes: N17.9 - DINA (acute kidney injury) SNOMED: 74935552 (5) Pneumonia due to COVID-19 virus ICD Codes: U07.1 - COVID-19; J12.89 - Other viral pneumonia SNOMED: 844681203, 067188651 Status: stable, progressing Assessment/Plan: Continue supplemental oxygen as needed. Titrate as needed. prn diuresis. monitor lytes. Antiplatelet treatment. keep dry. Cardiology and infectious disease follow-up. dvt and stress ulcer prophylaxis. Transfer back to [facility]. Subjective ROS Limited/Unobtainable: Yes Constitutional: Reports: malaise, weakness HEENT: Reports: no symptoms Cardiovascular: Reports: no symptoms Respiratory: Reports: cough, shortness of breath, sputum Gastrointestinal/Abdominal: Reports: difficulty swallowing Genitourinary: Reports: no symptoms Neurologic/Psychiatric: Reports: anxiety, emotional problems, pre-existing deficit Endocrine: Reports: no symptoms Hematologic/Lymphatic: Reports: anemia Allergies: Coded Allergies: No Known Allergies (Unverified , 03/14/12) All Systems: reviewed and negative except above Subjective Doing better today. Improving O2 saturations. Saturating well on 2 to 3 L nasal cannula. No fevers or chills. Discussed with RN no new concerns. Likely stable for [facility]. Objective Last 24 Hour Vital Signs Date Time Temp Pulse Resp B/P (MAP) Pulse Ox O2 Delivery O2 Flow Rate FiO2 11/30/19 08:41 60 105/63 11/30/19 08:00 Nasal Cannula 1.0 11/30/19 08:00 1.0 11/30/19 08:00 60 11/30/19 07:49 96.8 60 16 93/60 (71) 96 11/30/19 07:26 96 Nasal Cannula 2.0 28 11/30/19 07:25 63 20 96 Nasal Cannula 2.0 28 11/30/19 05:00 112/70 11/30/19 04:00 1.0 11/30/19 04:00 60 11/30/19 04:00 97.5 60 18 112/70 (84) 97 11/30/19 04:00 Nasal Cannula 1.0 11/30/19 00:22 135/78 11/30/19 00:00 2.0 11/30/19 00:00 Nasal Cannula 4.0 11/30/19 00:00 60 11/29/19 23:57 60 11/29/19 23:55 98.0 63 20 135/78 (97) 94 11/29/19 21:00 Nasal Cannula 4.0 11/29/19 20:00 97.2 61 19 128/74 (92) 98 11/29/19 19:29 70 11/29/19 17:00 103/64 11/29/19 16:00 Nasal Cannula 4.0 11/29/19 16:00 2.0 11/29/19 15:55 97.3 60 20 103/64 (77) 97 11/29/19 15:14 60 11/29/19 13:10 124/72 11/29/19 12:00 60 11/29/19 12:00 97.0 60 19 124/72 (89) 96 11/29/19 12:00 3.0 11/29/19 12:00 Nasal Cannula 4.0 Intake and Output 11/29/19 11/30/19 19:00 07:00 Intake Total 400 ml 110.0 ml Output Total 700 ml 500 ml Balance -300 ml -390.0 ml Intake Oral 400 ml IV Total 110.0 ml Output Urine Total 700 ml 500 ml # Voids 2 1 Laboratory Tests 11/30/19 07:25: Random Vancomycin Level [Pending] Height (Feet): 5 Height (Inches): 2.00 Weight (Pounds): 109 Objective General Appearance: WD/WN, alert Neck: supple Cardiovascular: regular rhythm Respiratory/Chest: chest wall non-tender, lungs clear, normal breath sounds, no respiratory distress Abdomen: normal bowel sounds, non tender, soft, no organomegaly Edema: no edema noted Arm (L), no edema noted Arm (R), no edema noted Leg (L), no edema noted Leg (R), no edema noted Pedal (L), no edema noted Pedal (R), no edema noted Generalized Bhavesh Ovalle MD Nov 30, 2019 10:03
[2019-11-30 12:00] VITALS: BP 110/70
[2019-11-30] MEDS ORDERED: Vancomycin 750mg/D5W 275ml IVPB SCH ×2 (12:00)
--- NOTE | 2019-11-30 12:02 | Infectious Diseases Prog Note ---
Assessment/Plan Assessment/Plan A; 1. Pneumonia with COVID19 Positive: 11/17 & 11/23-11/26 2. History of schizophrenia. 3. Stroke. 4. COPD. 5. E. coli UTI treated 6. anemia PLAN: 1. Continue Vancomycin & Zosyn 3. Repeat COVID19 test Subjective ROS Limited/Unobtainable: Yes Allergies: Coded Allergies: No Known Allergies (Unverified , 03/14/12) Objective Vital Signs Last 24 Hour Vital Signs Date Time Temp Pulse Resp B/P (MAP) Pulse Ox O2 Delivery O2 Flow Rate FiO2 11/30/19 08:41 60 105/63 11/30/19 08:00 Nasal Cannula 1.0 11/30/19 08:00 1.0 11/30/19 08:00 60 11/30/19 07:49 96.8 60 16 93/60 (71) 96 11/30/19 07:26 96 Nasal Cannula 2.0 28 11/30/19 07:25 63 20 96 Nasal Cannula 2.0 28 11/30/19 05:00 112/70 11/30/19 04:00 1.0 11/30/19 04:00 60 11/30/19 04:00 97.5 60 18 112/70 (84) 97 11/30/19 04:00 Nasal Cannula 1.0 11/30/19 00:22 135/78 11/30/19 00:00 2.0 11/30/19 00:00 Nasal Cannula 4.0 11/30/19 00:00 60 11/29/19 23:57 60 11/29/19 23:55 98.0 63 20 135/78 (97) 94 11/29/19 21:00 Nasal Cannula 4.0 11/29/19 20:00 97.2 61 19 128/74 (92) 98 11/29/19 19:29 70 11/29/19 17:00 103/64 11/29/19 16:00 Nasal Cannula 4.0 11/29/19 16:00 2.0 11/29/19 15:55 97.3 60 20 103/64 (77) 97 11/29/19 15:14 60 11/29/19 13:10 124/72 11/29/19 12:00 60 11/29/19 12:00 97.0 60 19 124/72 (89) 96 11/29/19 12:00 3.0 11/29/19 12:00 Nasal Cannula 4.0 Height (Feet): 5 Height (Inches): 2.00 Weight (Pounds): 109 General Appearance: no acute distress HEENT: mucous membranes moist Respiratory/Chest: other - oxygen by nasal cannula Cardiovascular: normal rate Abdomen: soft, non tender Extremities: no edema Neurologic/Psychiatric: alert, responsive Microbiology Date/Time Source Procedure Growth Status 11/27/19 13:30 Nasopharynx Coronavirus COVID-19 PCR ([facility]) - Final Complete Laboratory Tests Test 11/30/19 07:25 Random Vancomycin Level 16.6 ug/mL Current Medications Medications (Trade) Dose Ordered Sig/David Route PRN Reason Start Time Stop Time Status Last Admin Dose Admin Acetaminophen (Tylenol) 650 mg Q6H PRN ORAL Mild Pain (Pain Scale 1-3) 11/29/19 19:18 12/18/19 19:17 Albuterol Sulfate (Proventil MDI) 2 puff Q4H PRN INH Shortness of Breath 11/29/19 21:30 02/16/20 21:29 Amlodipine Besylate (Norvasc) 5 mg DAILY ORAL 11/30/19 09:00 12/26/19 08:59 Clonidine HCl (Catapres Tab) 0.1 mg EVERY 6 HOURS ORAL 11/30/19 00:00 02/17/20 00:00 11/30/19 00:22 Heparin Sodium (Porcine) (Heparin 5000 units/ml) 5,000 units BID@0900,2100 SUBQ 11/29/19 21:00 01/03/20 08:59 11/30/19 08:38 Hydralazine HCl (Apresoline) 10 mg Q6H PRN ORAL PRN SBP>160 11/30/19 00:45 02/17/20 12:44 Magnesium Hydroxide (Mom) 30 ml TIDPRN PRN ORAL Constipation 11/29/19 19:24 12/29/19 19:23 Magnesium Oxide (Mag-Ox 400mg) 400 mg BID ORAL 11/30/19 09:00 12/20/19 17:59 Piperacillin Sod/ Tazobactam Sod 3.375 gm/Sodium Chloride 110 ml @ 27.5 mls/hr Q8H IVPB 11/29/19 20:00 12/05/19 19:59 11/30/19 04:55 Tamsulosin HCl (Flomax) 0.4 mg DAILY ORAL 11/30/19 09:00 12/19/19 08:59 Vancomycin HCl (Vanco rx to dose) 1 ea DAILY PRN MISC Per rx protocol 11/30/19 09:00 12/28/19 17:59 Vancomycin HCl 750 mg/Dextrose 275 ml @ 183.333 mls/hr Q24H IVPB 11/30/19 12:00 12/05/19 11:59 Eleazar Prieto MD Nov 30, 2019 12:02
[2019-11-30] MEDS ORDERED: Tubing IV Secondary IV ONE (13:58)
[2019-11-30] MEDS ORDERED: NS 275ml ONE (13:58)
[2019-11-30 16:00] VITALS: BP 105/61
--- NOTE | 2019-11-30 16:33 | NUR ---
NURSE NOTES: Partial bed bath given. Stool x1, external female catheter in place. Pt repositioned. 2L NC, oxygen saturation at 97-98%. No respiratory distress, no SOB. No pain noted. Will continue to monitor.
--- NOTE | 2019-11-30 19:05 | NUR ---
HAND-OFF: Report given to CNONER Holt.
--- NOTE | 2019-11-30 19:06 | NUR ---
NURSE NOTES: Patient received from CONNER Ashford. 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 Patient is cooperative, follows commands and clean with a purewick in place. Patient is on 2L NC, No skin issues, IV site left AC 18G and left forearm 24g. Bed is at its lowest position and x3 bed rails ar up. Will continue to monitor.
[2019-11-30 20:00] VITALS: BP 109/72
--- NOTE | 2019-11-30 22:06 | Pulmonology Progress Note ---
Assessment/Plan Assessment/Plan Pulmonary Progress Note: HPI: The patient is a 79-year-old woman with longstanding history of COPD, chronic kidney disease, noted to have positive COVID test. The patient is comfortable, and not significantly congested at this time. The patient was admitted on 11/18/2019. The patient has been on and off oxygen. Chest x-ray with some patchy infiltrate initially. The patient's care discussed and reviewed and the chart reviewed in detail. PAST MEDICAL HISTORY: Notable for Parkinson's disease, bipolar disorder, hypertension, COPD, chronic kidney disease, stroke, pacemaker. No new complaints MEDICATIONS: Reviewed. ALLERGIES: Reviewed. PHYSICAL EXAMINATION: GENERAL: A well-developed female. The patient is currently without significant distress. The patient, however, does note to have some oxygen desaturation. She is currently on 4 liters. VITAL SIGNS NOTED HEENT: Negative. Extraocular movements are grossly intact. NECK: Supple. LUNGS: Moderate breath sounds, occasional rhonchi . CARDIAC: S1, S2. Regular rate and rhythm without murmurs, rubs, gallops. ABDOMEN: Soft, nontender, nondistended. EXTREMITIES: No cyanosis or clubbing. No significant edema. NEUROLOGIC: Grossly nonfocal, weak, and confuse. LABORATORY AND DIAGNOSTIC DATA: Laboratory data reviewed and noted infiltrates bilaterally when compared to prior overall without significant change. Lab data otherwise notable for white count 7.4, hemoglobin 8.8, platelets are normal. Chemistries, BUN 58, creatinine 1.5. Blood gas noted IMPRESSION: 1. Bilateral pulmonary infiltrates, COVID positive 2. Possible underlying pulmonary edema. 3. Chronic renal failure. 4. Toxic metabolic encephalopathy. 5. Hypoxemia. RECOMMENDATIONS: Supportive care as per ID. The patient is currently off antibiotics. Monitor oxygen needs were concerned and edema has not yet resolved. DVT prophylaxis. We will follow clinically. IV Zosyn, follow x- ray. Albuterol inhaler as needed, further pulmonary intervention as needed. Subjective ROS Limited/Unobtainable: No Allergies: Coded Allergies: No Known Allergies (Unverified , 03/14/12) Objective Last 24 Hour Vital Signs Date Time Temp Pulse Resp B/P (MAP) Pulse Ox O2 Delivery O2 Flow Rate FiO2 11/30/19 20:00 2.0 11/30/19 20:00 Nasal Cannula 2.0 11/30/19 20:00 61 11/30/19 20:00 97.9 64 15 109/72 (84) 98 11/30/19 17:05 105/61 11/30/19 16:00 97.2 60 16 105/61 (76) 97 11/30/19 16:00 Nasal Cannula 1.0 11/30/19 16:00 60 11/30/19 16:00 2.0 11/30/19 12:00 Nasal Cannula 1.0 11/30/19 12:00 2.0 11/30/19 12:00 60 11/30/19 12:00 96.9 60 16 110/70 (83) 93 11/30/19 08:41 60 105/63 11/30/19 08:00 Nasal Cannula 1.0 11/30/19 08:00 1.0 11/30/19 08:00 60 11/30/19 07:49 96.8 60 16 93/60 (71) 96 11/30/19 07:26 96 Nasal Cannula 2.0 28 11/30/19 07:25 63 20 96 Nasal Cannula 2.0 28 11/30/19 05:00 112/70 11/30/19 04:00 1.0 11/30/19 04:00 60 11/30/19 04:00 97.5 60 18 112/70 (84) 97 11/30/19 04:00 Nasal Cannula 1.0 11/30/19 00:22 135/78 11/30/19 00:00 2.0 11/30/19 00:00 Nasal Cannula 4.0 11/30/19 00:00 60 11/29/19 23:57 60 11/29/19 23:55 98.0 63 20 135/78 (97) 94 Intake and Output 11/29/19 11/30/19 19:00 07:00 Intake Total 400 ml 110.0 ml Output Total 700 ml 500 ml Balance -300 ml -390.0 ml Intake Oral 400 ml IV Total 110.0 ml Output Urine Total 700 ml 500 ml # Voids 2 1 Laboratory Tests 11/30/19 07:25: Random Vancomycin Level 16.6 Current Medications Medications (Trade) Dose Ordered Sig/David Route PRN Reason Start Time Stop Time Status Last Admin Dose Admin Acetaminophen (Tylenol) 650 mg Q6H PRN ORAL Mild Pain (Pain Scale 1-3) 11/29/19 19:18 57/20 19:17 Albuterol Sulfate (Proventil MDI) 2 puff Q4H PRN INH Shortness of Breath 11/29/19 21:30 02/16/20 21:29 Amlodipine Besylate (Norvasc) 5 mg DAILY ORAL 11/30/19 09:00 12/26/19 08:59 Clonidine HCl (Catapres Tab) 0.1 mg EVERY 6 HOURS ORAL 11/30/19 00:00 02/17/20 00:00 11/30/19 00:22 Heparin Sodium (Porcine) (Heparin 5000 units/ml) 5,000 units BID@0900,2100 SUBQ 11/29/19 21:00 01/03/20 08:59 11/30/19 21:08 Hydralazine HCl (Apresoline) 10 mg Q6H PRN ORAL PRN SBP>160 11/30/19 00:45 02/17/20 12:44 Magnesium Hydroxide (Mom) 30 ml TIDPRN PRN ORAL Constipation 11/29/19 19:24 12/29/19 19:23 Magnesium Oxide (Mag-Ox 400mg) 400 mg BID ORAL 11/30/19 09:00 12/20/19 17:59 Piperacillin Sod/ Tazobactam Sod 3.375 gm/Sodium Chloride 110 ml @ 27.5 mls/hr Q8H IVPB 11/29/19 20:00 12/05/19 19:59 11/30/19 21:04 Tamsulosin HCl (Flomax) 0.4 mg DAILY ORAL 11/30/19 09:00 12/19/19 08:59 Vancomycin HCl (Vanco rx to dose) 1 ea DAILY PRN MISC Per rx protocol 11/30/19 09:00 12/28/19 17:59 Vancomycin HCl 750 mg/Dextrose 275 ml @ 183.333 mls/hr Q24H IVPB 11/30/19 12:00 12/05/19 11:59 11/30/19 12:19 Hadley Mclaughlin MD Nov 30, 2019 22:06
--- NOTE | 2019-11-30 22:30 | NUR ---
NURSE NOTES: Patient received from CONNER Holt. AAO x 1, on NC 2L. IV site left AC 18G and left FA 24G intact. Droplet, contact precaution maintained. Bed locked, lowest position, alarm on, side rails up, call light within reach. Will continue to monitor.
--- NOTE | 2019-11-30 22:50 | NUR ---
HAND-OFF: Report given to CONNER Valderrama.
--- NOTE | 2019-11-30 23:15 | NUR ---
TRANSFER TO FLOOR: Patient transferred to [facility], per Dr. Ovalle. Report given to CONNER Valderrama. Belongings and medications given to CONNER Valderrama. Family and or S/O informed of transfer.
[2019-12-01] VITALS: BP 136/81
[2019-12-01] MEDS ORDERED: HydrALAZINE 10mg Tab ORAL PRN (00:45)
[2019-12-01] MEDS ORDERED: Albuterol 90mcg Inhaler 8gm INH PRN (01:30)
[2019-12-01] MEDS ORDERED: Acetaminophen 500mg (ES) tab ORAL PRN (01:30)
[2019-12-01 04:00] VITALS: BP 119/75
[2019-12-01] MEDS: Piperacillin/Tazobactam 3.375 GM in NS 110 ML IVPB SCH ×3 (05:38→21:15)
[2019-12-01 07:23] LABS: BASOPHILS % (AUTO) 0.9 % (0.0-2.0); EOSINOPHILS % (AUTO) 1.5 % (0.0-3.0); HEMOGLOBIN 9.6 G/DL (12.0-16.0); LYMPHOCYTES % (AUTO) 22.5 % (20.0-45.0); MEAN CORPUSCULAR VOLUME 85 FL (80-99); MONOCYTES % (AUTO) 13.1 % (1.0-10.0); PLATELET COUNT 273 K/UL (150-450); RED BLOOD COUNT 3.43 M/UL (4.20-5.40); RED CELL DISTRIBUTION WIDTH 13.6 % (11.6-14.8); WHITE BLOOD COUNT 7.3 K/UL (4.8-10.8)
--- NOTE | 2019-12-01 07:34 | NUR ---
HAND-OFF: Report given to CONNER Colin.
--- NOTE | 2019-12-01 07:59 | Progress Note ---
DATE: 11/30/2019 CARDIOLOGY PROGRESS NOTE SUBJECTIVE: The patient's respiratory parameters improved. Now saturating adequately on low flow oxygen. PHYSICAL EXAMINATION: VITAL SIGNS: Blood pressure on the low range with 93/60 to 105/63, heart rate 60, and monitored paced. LUNGS: Bilateral breath sounds. CARDIAC: Regular rhythm and rate. Normal S1, S2. A 1/6 systolic murmur at apex. ABDOMEN: Soft. EXTREMITIES: No edema. IMPRESSION: 1. COVID-19 pneumonia. 2. Hypoxia, resolved. 3. Acute kidney injury. 4. Cerebrovascular disease. 5. Hypertensive heart disease. 6. Permanent pacemaker. PLAN: Trend natriuretic peptide assay. Periodic diuresis based on clinical parameters. Follow up electrolytes. DVT prophylaxis. Respiratory hygiene. Hadley Rowland M.D. DR: CAROL JOB#: [id number] CC:
[2019-12-01 08:00] VITALS: BP 105/67
[2019-12-01 08:06] LABS: ALANINE AMINOTRANSFERASE 25 U/L (12-78); ALBUMIN/GLOBULIN RATIO 0.7 (1.0-2.7); ALKALINE PHOSPHATASE 83 U/L (46-116); ANION GAP 12 mmol/L (5-15); ASPARTATE AMINO TRANSFERASE 20 U/L (15-37); BILIRUBIN,TOTAL 0.4 MG/DL (0.2-1.0); BLOOD UREA NITROGEN 45 mg/dL (7-18); CALCIUM 9.1 MG/DL (8.5-10.1); CARBON DIOXIDE 24 MMOL/L (21-32); CHLORIDE 103 MMOL/L (98-107); CREATININE 1.7 MG/DL (0.55-1.30); POTASSIUM 4.9 MMOL/L (3.5-5.1); SODIUM 139 MMOL/L (136-145)
[2019-12-01] MEDS: Tamsulosin 0.4mg cap ORAL SCH (09:09)
[2019-12-01] MEDS: Magnesium Oxide 400mg tab ORAL SCH ×2 (09:09→17:10)
[2019-12-01] MEDS: Heparin 5000 units/ml inj SUBQ SCH ×2 (09:11→21:14)
--- NOTE | 2019-12-01 10:25 | NUR ---
DISCHARGE PLANNING 72 HRS VITALS FAXED TO [facility] FOR REVIEW. REQUIRED BY [facility] PER READMISSION PROTOCOL P: [phone] F: [phone] Addendum: 12/01/19 at 1124 by ANDRE LAM LVN LVN FOLLOW UP CALL MADE TO [facility]. [employer] AND ASSEMBLY SUPERVISOR IN CHARGE OF ADMISSIONS TODAY. CURRENTLY UNAVAILABLE. WILL ATTEMPT TO CALL AGAIN.
--- NOTE | 2019-12-01 11:24 | Infectious Diseases Prog Note ---
Assessment/Plan Assessment/Plan antibiotics : vancomycin iv, zosyn P 1. covid 19 pneumonia test positive 4.7.20, 4.13.20 s/p rx with hydroxychloroquine 2. e.coli UTI s/p rx 3. COPD 4. schizophrenia 5. CVA 6. pneumonia increasing P 1. continue iv vancomycin, zosyn 2. will follow up cultures 3. continue isolation Subjective ROS Limited/Unobtainable: Yes Allergies: Coded Allergies: No Known Allergies (Unverified , 03/14/12) Objective Vital Signs Last 24 Hour Vital Signs Date Time Temp Pulse Resp B/P (MAP) Pulse Ox O2 Delivery O2 Flow Rate FiO2 12/01/19 09:09 62 105/67 12/01/19 09:00 Nasal Cannula 2.0 12/01/19 08:00 2.0 12/01/19 08:00 98.2 62 18 105/67 (80) 94 12/01/19 07:00 94 Nasal Cannula 2.0 28 12/01/19 07:00 62 20 94 Nasal Cannula 2.0 28 12/01/19 05:42 119/75 12/01/19 04:00 98.2 64 18 119/75 (90) 94 12/01/19 04:00 2.0 12/01/19 00:00 98.4 74 18 136/81 (99) 93 11/30/19 23:26 135/81 11/30/19 20:03 98 Nasal Cannula 2.0 28 11/30/19 20:03 64 20 98 Nasal Cannula 2.0 28 11/30/19 20:00 2.0 11/30/19 20:00 Nasal Cannula 2.0 11/30/19 20:00 61 11/30/19 20:00 97.9 64 15 109/72 (84) 98 11/30/19 17:05 105/61 11/30/19 16:00 97.2 60 16 105/61 (76) 97 11/30/19 16:00 Nasal Cannula 1.0 11/30/19 16:00 60 11/30/19 16:00 2.0 11/30/19 12:00 Nasal Cannula 1.0 11/30/19 12:00 2.0 11/30/19 12:00 60 11/30/19 12:00 96.9 60 16 110/70 (83) 93 Height (Feet): 5 Height (Inches): 2.00 Weight (Pounds): 109 Laboratory Tests Test 12/01/19 06:30 White Blood Count 7.3 K/UL (4.8-10.8) Red Blood Count 3.43 M/UL (4.20-5.40) L Hemoglobin 9.6 G/DL (12.0-16.0) L Hematocrit 29.0 % (37.0-47.0) L Mean Corpuscular Volume 85 FL (80-99) Mean Corpuscular Hemoglobin 28.1 PG (27.0-31.0) Mean Corpuscular Hemoglobin Concent 33.2 G/DL (32.0-36.0) Red Cell Distribution Width 13.6 % (11.6-14.8) Platelet Count 273 K/UL (150-450) Mean Platelet Volume 7.0 FL (6.5-10.1) Neutrophils (%) (Auto) 62.0 % (45.0-75.0) Lymphocytes (%) (Auto) 22.5 % (20.0-45.0) Monocytes (%) (Auto) 13.1 % (1.0-10.0) H Eosinophils (%) (Auto) 1.5 % (0.0-3.0) Basophils (%) (Auto) 0.9 % (0.0-2.0) Sodium Level 139 MMOL/L (136-145) Potassium Level 4.9 MMOL/L (3.5-5.1) Chloride Level 103 MMOL/L (98-107) Carbon Dioxide Level 24 MMOL/L (21-32) Anion Gap 12 mmol/L (5-15) Blood Urea Nitrogen 45 mg/dL (7-18) H Creatinine 1.7 MG/DL (0.55-1.30) H Estimat Glomerular Filtration Rate 29.1 mL/min (>60) Glucose Level 98 MG/DL (74-106) Calcium Level 9.1 MG/DL (8.5-10.1) Magnesium Level 2.2 MG/DL (1.8-2.4) Total Bilirubin 0.4 MG/DL (0.2-1.0) Aspartate Amino Transf (AST/SGOT) 20 U/L (15-37) Alanine Aminotransferase (ALT/SGPT) 25 U/L (12-78) Alkaline Phosphatase 83 U/L (46-116) Pro-B-Type Natriuretic Peptide 157 pg/mL (0-125) H Total Protein 7.5 G/DL (6.4-8.2) Albumin 3.0 G/DL (3.4-5.0) L Globulin 4.5 g/dL Albumin/Globulin Ratio 0.7 (1.0-2.7) L Current Medications Medications (Trade) Dose Ordered Sig/David Route PRN Reason Start Time Stop Time Status Last Admin Dose Admin Acetaminophen (Tylenol) 650 mg Q6H PRN ORAL Mild Pain (Pain Scale 1-3) 12/01/19 01:30 12/18/19 19:17 Albuterol Sulfate (Proventil MDI) 2 puff Q4H PRN INH Shortness of Breath 12/01/19 01:30 02/16/20 21:29 Amlodipine Besylate (Norvasc) 5 mg DAILY ORAL 12/01/19 09:00 12/26/19 08:59 12/01/19 09:09 Clonidine HCl (Catapres Tab) 0.1 mg EVERY 6 HOURS ORAL 12/01/19 00:00 02/17/20 00:00 11/30/19 23:26 Heparin Sodium (Porcine) (Heparin 5000 units/ml) 5,000 units BID@0900,2100 SUBQ 12/01/19 09:00 01/03/20 08:59 12/01/19 09:11 Hydralazine HCl (Apresoline) 10 mg Q6H PRN ORAL PRN SBP>160 12/01/19 00:45 02/17/20 12:44 Magnesium Hydroxide (Mom) 30 ml TIDPRN PRN ORAL Constipation 12/01/19 19:30 12/29/19 19:23 Magnesium Oxide (Mag-Ox 400mg) 400 mg BID ORAL 12/01/19 09:00 12/20/19 17:59 12/01/19 09:09 Piperacillin Sod/ Tazobactam Sod 3.375 gm/Sodium Chloride 110 ml @ 27.5 mls/hr Q8H IVPB 12/01/19 04:00 12/05/19 19:59 12/01/19 05:38 Tamsulosin HCl (Flomax) 0.4 mg DAILY ORAL 12/01/19 09:00 12/19/19 08:59 12/01/19 09:09 Vancomycin HCl (Vanco rx to dose) 1 ea DAILY PRN MISC Per rx protocol 12/01/19 09:00 12/28/19 17:59 Vancomycin HCl 750 mg/Dextrose 275 ml @ 183.333 mls/hr Q24H IVPB 12/01/19 12:00 12/05/19 11:59 Marcela Zafar MD Dec 01, 2019 11:24
[2019-12-01 12:00] VITALS: BP 131/79
[2019-12-01] MEDS: Vancomycin 750 MG in D5W 275 ML IVPB SCH (12:00)
--- NOTE | 2019-12-01 12:14 | Pulmonology Progress Note ---
Assessment/Plan Assessment/Plan IMPRESSION: 1. Bilateral pulmonary infiltrates, COVID positive 2. Possible underlying pulmonary edema. 3. Chronic renal failure. 4. Toxic metabolic encephalopathy. 5. Hypoxemia 6. Anemia RECOMMENDATIONS: Supportive care noted as per ID. The patient is currently off antibiotics. Monitor oxygen needs. DVT prophylaxis. We will follow clinically. monitor on IV Zosyn, we will follow x-ray and followup imaging. Albuterol inhaler as needed and assist with further pulmonary intervention as needed. impression, plan, and exam edited and reviewed in detail care discussed with RN Subjective Allergies: Coded Allergies: No Known Allergies (Unverified , 03/14/12) Subjective over weekend reviewed care noted Objective Last 24 Hour Vital Signs Date Time Temp Pulse Resp B/P (MAP) Pulse Ox O2 Delivery O2 Flow Rate FiO2 12/01/19 12:00 103/70 12/01/19 09:09 62 105/67 12/01/19 09:00 Nasal Cannula 2.0 12/01/19 08:00 2.0 12/01/19 08:00 98.2 62 18 105/67 (80) 94 12/01/19 07:00 94 Nasal Cannula 2.0 28 12/01/19 07:00 62 20 94 Nasal Cannula 2.0 28 12/01/19 05:42 119/75 12/01/19 04:00 98.2 64 18 119/75 (90) 94 12/01/19 04:00 2.0 12/01/19 00:00 98.4 74 18 136/81 (99) 93 11/30/19 23:26 135/81 11/30/19 20:03 98 Nasal Cannula 2.0 28 11/30/19 20:03 64 20 98 Nasal Cannula 2.0 28 11/30/19 20:00 2.0 11/30/19 20:00 Nasal Cannula 2.0 11/30/19 20:00 61 11/30/19 20:00 97.9 64 15 109/72 (84) 98 11/30/19 17:05 105/61 11/30/19 16:00 97.2 60 16 105/61 (76) 97 11/30/19 16:00 Nasal Cannula 1.0 11/30/19 16:00 60 11/30/19 16:00 2.0 Intake and Output 11/30/19 12/01/19 19:00 07:00 Intake Total 400 ml Output Total 300 ml Balance 400 ml -300 ml Intake Oral 400 ml Output Urine Total 300 ml # Bowel Movements 1 Objective GENERAL: A well-developed female. NAD HEENT: Negative. Extraocular movements are grossly intact. NECK: Supple. LUNGS: Moderate breath sounds, occasional rhonchi scattered CARDIAC: S1, S2. Regular rate and rhythm without murmurs, rubs, gallops. ABDOMEN: Soft, nontender, nondistended. EXTREMITIES: No cyanosis or clubbing. No significant edema. NEUROLOGIC: Grossly nonfocal, weak, and confused. reviewed and edited Laboratory Tests 12/01/19 06:30: White Blood Count 7.3, Red Blood Count 3.43L, Hemoglobin 9.6L, Hematocrit 29.0L , Mean Corpuscular Volume 85, Mean Corpuscular Hemoglobin 28.1, Mean Corpuscular Hemoglobin Concent 33.2, Red Cell Distribution Width 13.6, Platelet Count 273, Mean Platelet Volume 7.0, Neutrophils (%) (Auto) 62.0, Lymphocytes (% ) (Auto) 22.5, Monocytes (%) (Auto) 13.1H, Eosinophils (%) (Auto) 1.5, Basophils (%) (Auto) 0.9, Sodium Level 139, Potassium Level 4.9, Chloride Level 103, Carbon Dioxide Level 24, Anion Gap 12, Blood Urea Nitrogen 45H, Creatinine 1.7H, Estimat Glomerular Filtration Rate 29.1, Glucose Level 98, Calcium Level 9.1, Magnesium Level 2.2, Total Bilirubin 0.4, Aspartate Amino Transf (AST/SGOT ) 20, Alanine Aminotransferase (ALT/SGPT) 25, Alkaline Phosphatase 83, Pro-B- Type Natriuretic Peptide 157H, Total Protein 7.5, Albumin 3.0L, Globulin 4.5, Albumin/Globulin Ratio 0.7L Current Medications Medications (Trade) Dose Ordered Sig/David Route PRN Reason Start Time Stop Time Status Last Admin Dose Admin Acetaminophen (Tylenol) 650 mg Q6H PRN ORAL Mild Pain (Pain Scale 1-3) 12/01/19 01:30 12/18/19 19:17 Albuterol Sulfate (Proventil MDI) 2 puff Q4H PRN INH Shortness of Breath 12/01/19 01:30 02/16/20 21:29 Amlodipine Besylate (Norvasc) 5 mg DAILY ORAL 12/01/19 09:00 12/26/19 08:59 12/01/19 09:09 Clonidine HCl (Catapres Tab) 0.1 mg EVERY 6 HOURS ORAL 12/01/19 00:00 02/17/20 00:00 11/30/19 23:26 Heparin Sodium (Porcine) (Heparin 5000 units/ml) 5,000 units BID@0900,2100 SUBQ 12/01/19 09:00 01/03/20 08:59 12/01/19 09:11 Hydralazine HCl (Apresoline) 10 mg Q6H PRN ORAL PRN SBP>160 12/01/19 00:45 02/17/20 12:44 Magnesium Hydroxide (Mom) 30 ml TIDPRN PRN ORAL Constipation 12/01/19 19:30 12/29/19 19:23 Magnesium Oxide (Mag-Ox 400mg) 400 mg BID ORAL 12/01/19 09:00 12/20/19 17:59 12/01/19 09:09 Piperacillin Sod/ Tazobactam Sod 3.375 gm/Sodium Chloride 110 ml @ 27.5 mls/hr Q8H IVPB 12/01/19 04:00 12/05/19 19:59 12/01/19 05:38 Tamsulosin HCl (Flomax) 0.4 mg DAILY ORAL 12/01/19 09:00 12/19/19 08:59 12/01/19 09:09 Vancomycin HCl (Vanco rx to dose) 1 ea DAILY PRN MISC Per rx protocol 12/01/19 09:00 12/28/19 17:59 Vancomycin HCl 750 mg/Dextrose 275 ml @ 183.333 mls/hr Q24H IVPB 12/01/19 12:00 12/05/19 11:59 Collin Albarado MD Dec 01, 2019 12:14
[2019-12-01 16:00] VITALS: BP 129/74
--- NOTE | 2019-12-01 16:00 | NUR ---
PT REFERRED FOR BEDSIDE SWALLOW EVALUATION BY: Dr. Ovalle DYSPHAGIA RISK FACTORS FOR THIS 79 Y.O. FEMALE. ACUTE ISSUES Covid 19 PNA, sepsis, acute on chronic diastolic congestive heart failure, Schizophrenia, PNA increasing, E Coli UTI s/p rx. COMORBIDITIES Chronically Hypoxic, Bipolar d/o, HTN, COPD, CKD Stage 1, h/o CVA, Parkinson's, permanent pacemaker. PER CXR ON 11/28/19: Impression: Bilateral interstitial infiltrates versus edema, appearing similar to prior study of 11/24/2019. Increasing left basilar opacity, may indicate increasing consolidation, pleural fluid, or both. RELEVANT MEDICATIONS: n/a PRIOR FUNCTION: Per [facility] notes, Pt previously consumed mechanical soft-finely chopped with thin liquids. VITALS: HR 62 bpm; RESPIRATORY RATE 20 bpm; SPO2 94% SPEECH/LANGUAGE Pt is nonverbal, however, observed to follow mainstreaming facilitator 1-step directions w/ cues. Attempted to assist CIVIL DRAFTING TECHNICIAN w/ repositioning, and does appear to have some intact comprehension skills. Pt is alert, edentulous, appearing w/ mild congestion. Oral secretion management appears intact. Per RN, Pt w/ coughing during thin liquids, no overt s/s of aspiration w/ puree solids. INITIAL IMPRESSIONS: Mild Oral Phase Dysphagia and suspected Mild to Moderate Pharyngeal Phase dysphagia compounded by Pt's current respiratory status w/ increased oral prep and transit time, prolonged and inefficient rotary mastication, delayed laryngeal elevation/excursion per palpation. PO Trials: -Thin liquids via teaspoon w/ immediate overt s/s of aspiration, weak cough response and watery eyes. -Fallis thick liquids via teaspoon, cup, and straw, no overt s/s of aspiration. -Finely chopped Mech Soft: Prolonged and inefficient rotary mastication w/ no bolus formulation observed, trials remained at BOT, trials cleared w/ liquid rinse. -Puree Solids via teaspoon, prolonged A-P transit to BOT, w/ eventual clearance s/p liquid rinse, no overt s/s of aspiration. PATIENT IS AT A RISK FOR SILENT ASPIRATION DUE TO HX OF CVA, PARKINSON'S, AND PNA. RECOMMENDATIONS: 1. DOWNGRADE DIET TO PUREE SOLIDS W/ NECTAR THICK LIQUIDS. MEDS TOLERATED. 2. STRICT ORAL CARE W/ SUCTION BID 3. SKILLED ST SERVICES TO F/U 3X A WEEK X1 WEEK 4. COG COMM EVAL/TX 5. MBSS OBJECTIVE SWALLOW EVALUATION IP OR OP (IF D/C)
--- NOTE | 2019-12-01 17:11 | General Progress Note ---
Assessment/Plan Problem List: (1) CKD (chronic kidney disease) stage 1, GFR 90 ml/min or greater ICD Codes: N18.1 - Chronic kidney disease, stage 1 SNOMED: 090791654 (2) CVA (cerebral vascular accident) ICD Codes: I63.9 - Cerebral infarction, unspecified SNOMED: 421847204 (3) Encephalopathy acute ICD Codes: G93.40 - Encephalopathy acute SNOMED: 2967598 (4) DINA (acute kidney injury) ICD Codes: N17.9 - DINA (acute kidney injury) SNOMED: 17632974 (5) Pneumonia due to COVID-19 virus ICD Codes: U07.1 - COVID-19; J12.89 - Other viral pneumonia SNOMED: 559627605, 677250036 Status: stable, progressing Assessment/Plan: Continue supplemental oxygen as needed. Titrate as needed. prn diuresis. monitor lytes. Antiplatelet treatment. keep dry. Cardiology and infectious disease follow-up. dvt and stress ulcer prophylaxis. Subjective ROS Limited/Unobtainable: No Constitutional: Reports: malaise, weakness HEENT: Reports: no symptoms Cardiovascular: Reports: no symptoms Respiratory: Reports: cough Gastrointestinal/Abdominal: Reports: no symptoms Genitourinary: Reports: no symptoms Neurologic/Psychiatric: Reports: anxiety, emotional problems, pre-existing deficit Endocrine: Reports: no symptoms Hematologic/Lymphatic: Reports: no symptoms Allergies: Coded Allergies: No Known Allergies (Unverified , 03/14/12) All Systems: reviewed and negative except above Subjective stable this am. Improving O2 saturations. Saturating well on 2 to 3 L nasal cannula. No fevers or chills. Discussed with RN no new concerns. Objective Last 24 Hour Vital Signs Date Time Temp Pulse Resp B/P (MAP) Pulse Ox O2 Delivery O2 Flow Rate FiO2 12/01/19 12:00 103/70 12/01/19 12:00 2.0 12/01/19 12:00 98.2 62 18 131/79 (96) 94 12/01/19 09:09 62 105/67 12/01/19 09:00 Nasal Cannula 2.0 12/01/19 08:00 2.0 12/01/19 08:00 98.2 62 18 105/67 (80) 94 12/01/19 07:00 94 Nasal Cannula 2.0 28 12/01/19 07:00 62 20 94 Nasal Cannula 2.0 28 12/01/19 05:42 119/75 12/01/19 04:00 98.2 64 18 119/75 (90) 94 12/01/19 04:00 2.0 12/01/19 00:00 98.4 74 18 136/81 (99) 93 11/30/19 23:26 135/81 11/30/19 20:03 98 Nasal Cannula 2.0 28 11/30/19 20:03 64 20 98 Nasal Cannula 2.0 28 11/30/19 20:00 2.0 11/30/19 20:00 Nasal Cannula 2.0 11/30/19 20:00 61 11/30/19 20:00 97.9 64 15 109/72 (84) 98 Intake and Output 11/30/19 12/01/19 19:00 07:00 Intake Total 400 ml Output Total 300 ml Balance 400 ml -300 ml Intake Oral 400 ml Output Urine Total 300 ml # Bowel Movements 1 Laboratory Tests 12/01/19 06:30: White Blood Count 7.3, Red Blood Count 3.43L, Hemoglobin 9.6L, Hematocrit 29.0L , Mean Corpuscular Volume 85, Mean Corpuscular Hemoglobin 28.1, Mean Corpuscular Hemoglobin Concent 33.2, Red Cell Distribution Width 13.6, Platelet Count 273, Mean Platelet Volume 7.0, Neutrophils (%) (Auto) 62.0, Lymphocytes (% ) (Auto) 22.5, Monocytes (%) (Auto) 13.1H, Eosinophils (%) (Auto) 1.5, Basophils (%) (Auto) 0.9, Sodium Level 139, Potassium Level 4.9, Chloride Level 103, Carbon Dioxide Level 24, Anion Gap 12, Blood Urea Nitrogen 45H, Creatinine 1.7H, Estimat Glomerular Filtration Rate 29.1, Glucose Level 98, Calcium Level 9.1, Magnesium Level 2.2, Total Bilirubin 0.4, Aspartate Amino Transf (AST/SGOT ) 20, Alanine Aminotransferase (ALT/SGPT) 25, Alkaline Phosphatase 83, Pro-B- Type Natriuretic Peptide 157H, Total Protein 7.5, Albumin 3.0L, Globulin 4.5, Albumin/Globulin Ratio 0.7L Height (Feet): 5 Height (Inches): 2.00 Weight (Pounds): 109 Objective General Appearance: WD/WN, alert Neck: supple Cardiovascular: regular rhythm Respiratory/Chest: chest wall non-tender, lungs clear, normal breath sounds, no respiratory distress Abdomen: normal bowel sounds, non tender, soft, no organomegaly Edema: no edema noted Arm (L), no edema noted Arm (R), no edema noted Leg (L), no edema noted Leg (R), no edema noted Pedal (L), no edema noted Pedal (R), no edema noted Generalized Bhavesh Ovalle MD Dec 01, 2019 17:11
--- NOTE | 2019-12-01 19:18 | NUR ---
NURSE NOTES: pt awake alert, no distress. no sob. alert, nonverbal. no s/s pain. call light within reach. will monitor. kept clean dry and comfortable. bed alarm on. has confusion
[2019-12-01] MEDS ORDERED: Milk of Magnesia 30ml Ud ORAL PRN (19:30)
[2019-12-01 20:00] VITALS: BP 97/64
[2019-12-02] VITALS: BP 111/46
[2019-12-02 04:00] VITALS: BP 139/75
--- NOTE | 2019-12-02 04:30 | Progress Note ---
DATE: 12/01/2019 CARDIOLOGY PROGRESS NOTE SUBJECTIVE: Oxygen saturation improving on nasal cannula. No respiratory distress. No fevers. OBJECTIVE: VITAL SIGNS: Blood pressure 131/79, heart rate 62, respiratory rate 18. LUNGS: Bilateral breath sounds. No wheezing. Few rhonchi. CARDIAC: Regular rhythm and rate. Normal S1, S2. ABDOMEN: Soft. EXTREMITIES: No edema. Monitor is paced with a paced rhythm. LABORATORY DATA: White count 7, hemoglobin 9.6. BUN 45, creatinine 1.7. Albumin 3.0. Natriuretic peptide 157. There have been no changes to review of systems from prior assessment. IMPRESSION: 1. COVID-19 pneumonia. 2. No signs of acute diastolic congestive heart failure. 3. Mild protein-calorie malnutrition. 4. Permanent pacemaker. 5. Resolved hypoxia. 6. Status post hydroxychloroquine therapy with no cardiac toxicity noted. PLAN: 1. Discontinue cardiac monitoring. 2. Continue respiratory hygiene. 3. Tapering off oxygen. 4. Current cardiovascular regimen and close monitoring of cardiorenal parameters. 5. Medication regimen reviewed and updated based on current clinical condition. Hadley Rowland M.D. DR: DENTON JOB#: [id number] CC:
[2019-12-02] MEDS: Piperacillin/Tazobactam 3.375 GM in NS 110 ML IVPB SCH ×3 (04:51→22:45)
--- NOTE | 2019-12-02 06:50 | NUR ---
NURSE NOTES: Patient received from CONNER Colin. AAO x 1, on NC 2L. IV site left AC 18G and left FA 24G intact. Droplet, contact precaution maintained. No acute distress noted at this time. Bed locked, lowest position, alarm on, side rails up, call light within reach. Will continue to monitor. Addendum: 12/02/19 at 0652 by MARIO JONES RN RN NURSE NOTES: Time is error. Correct time: 12/01/19 @ 2447
--- NOTE | 2019-12-02 07:37 | NUR ---
HAND-OFF: Report given to CONNER Mercado.
--- NOTE | 2019-12-02 07:45 | NUR ---
NURSE NOTES: Patient received from CONNER Novak. AAO x 1, on NC 2L. Droplet, contact precaution maintained. No SOB, No acute distress noted at this time. Bed locked, lowest position, alarm on, side rails up, call light within reach. Will continue to monitor.
[2019-12-02 08:00] VITALS: BP 113/50
[2019-12-02] MEDS: Magnesium Oxide 400mg tab ORAL SCH ×2 (10:37→17:58)
[2019-12-02] MEDS: Tamsulosin 0.4mg cap ORAL SCH (10:37)
[2019-12-02] MEDS: Heparin 5000 units/ml inj SUBQ SCH ×2 (10:43→20:49)
--- NOTE | 2019-12-02 11:41 | General Progress Note ---
Assessment/Plan Problem List: (1) CKD (chronic kidney disease) stage 1, GFR 90 ml/min or greater ICD Codes: N18.1 - Chronic kidney disease, stage 1 SNOMED: 445826454 (2) CVA (cerebral vascular accident) ICD Codes: I63.9 - Cerebral infarction, unspecified SNOMED: 609280508 (3) Encephalopathy acute ICD Codes: G93.40 - Encephalopathy acute SNOMED: 9002973 (4) DINA (acute kidney injury) ICD Codes: N17.9 - DINA (acute kidney injury) SNOMED: 06760712 (5) Pneumonia due to COVID-19 virus ICD Codes: U07.1 - COVID-19; J12.89 - Other viral pneumonia SNOMED: 156981572, 274502364 Status: stable, progressing Assessment/Plan: Continue supplemental oxygen as needed. Titrate as needed. prn diuresis. monitor lytes. Antiplatelet treatment. keep dry. Cardiology and infectious disease follow-up. dvt and stress ulcer prophylaxis. Subjective ROS Limited/Unobtainable: No Constitutional: Reports: malaise, weakness HEENT: Reports: no symptoms Cardiovascular: Reports: no symptoms Respiratory: Reports: cough, shortness of breath Gastrointestinal/Abdominal: Reports: no symptoms Genitourinary: Reports: no symptoms Neurologic/Psychiatric: Reports: no symptoms Endocrine: Reports: no symptoms Hematologic/Lymphatic: Reports: no symptoms Allergies: Coded Allergies: No Known Allergies (Unverified , 03/14/12) All Systems: reviewed and negative except above Subjective stable this am. Improving O2 saturations. Saturating well on 2L nasal cannula. No fevers or chills. Discussed with RN no new concerns. Objective Last 24 Hour Vital Signs Date Time Temp Pulse Resp B/P (MAP) Pulse Ox O2 Delivery O2 Flow Rate FiO2 12/02/19 10:37 77 139/75 12/02/19 04:55 139/75 12/02/19 04:00 2.0 12/02/19 04:00 98.1 77 19 139/75 (96) 91 12/02/19 00:00 97.9 72 20 111/46 (67) 94 12/01/19 23:41 97/64 12/01/19 20:00 98.8 98 20 97/64 (75) 95 12/01/19 20:00 2.0 12/01/19 19:40 94 Nasal Cannula 2.0 28 12/01/19 19:40 70 20 94 Nasal Cannula 2.0 28 12/01/19 17:11 129/74 12/01/19 16:00 98.2 69 18 129/74 (92) 94 12/01/19 16:00 2.0 12/01/19 12:00 103/70 12/01/19 12:00 2.0 12/01/19 12:00 98.2 62 18 131/79 (96) 94 Intake and Output 12/01/19 12/02/19 19:00 07:00 Intake Total 800 ml Balance 800 ml Intake Oral 800 ml # Voids 3 1 Height (Feet): 5 Height (Inches): 2.00 Weight (Pounds): 109 Objective General Appearance: WD/WN, alert Neck: supple Cardiovascular: regular rhythm Respiratory/Chest: chest wall non-tender, lungs clear, normal breath sounds, no respiratory distress Abdomen: normal bowel sounds, non tender, soft, no organomegaly Edema: no edema noted Arm (L), no edema noted Arm (R), no edema noted Leg (L), no edema noted Leg (R), no edema noted Pedal (L), no edema noted Pedal (R), no edema noted Generalized Bhavesh Ovalle MD Dec 02, 2019 11:41
--- NOTE | 2019-12-02 11:44 | Infectious Diseases Prog Note ---
Assessment/Plan Assessment/Plan antibiotics : vancomycin iv, zosyn P 1. covid 19 pneumonia test positive 4.7.20, 4.13.20 s/p rx with hydroxychloroquine 2. e.coli UTI s/p rx 3. COPD 4. schizophrenia 5. CVA 6. pneumonia increasing P 1. continue iv vancomycin, zosyn 2. will follow up cultures 3. continue isolation Subjective ROS Limited/Unobtainable: Yes Allergies: Coded Allergies: No Known Allergies (Unverified , 03/14/12) Objective Vital Signs Last 24 Hour Vital Signs Date Time Temp Pulse Resp B/P (MAP) Pulse Ox O2 Delivery O2 Flow Rate FiO2 12/02/19 10:37 77 139/75 12/02/19 04:55 139/75 12/02/19 04:00 2.0 12/02/19 04:00 98.1 77 19 139/75 (96) 91 12/02/19 00:00 97.9 72 20 111/46 (67) 94 12/01/19 23:41 97/64 12/01/19 20:00 98.8 98 20 97/64 (75) 95 12/01/19 20:00 2.0 12/01/19 19:40 94 Nasal Cannula 2.0 28 12/01/19 19:40 70 20 94 Nasal Cannula 2.0 28 12/01/19 17:11 129/74 12/01/19 16:00 98.2 69 18 129/74 (92) 94 12/01/19 16:00 2.0 12/01/19 12:00 103/70 12/01/19 12:00 2.0 12/01/19 12:00 98.2 62 18 131/79 (96) 94 Height (Feet): 5 Height (Inches): 2.00 Weight (Pounds): 109 Current Medications Medications (Trade) Dose Ordered Sig/David Route PRN Reason Start Time Stop Time Status Last Admin Dose Admin Acetaminophen (Tylenol) 650 mg Q6H PRN ORAL Mild Pain (Pain Scale 1-3) 12/01/19 01:30 12/18/19 19:17 Albuterol Sulfate (Proventil MDI) 2 puff Q4H PRN INH Shortness of Breath 12/01/19 01:30 02/16/20 21:29 Amlodipine Besylate (Norvasc) 5 mg DAILY ORAL 12/01/19 09:00 12/26/19 08:59 12/02/19 10:37 Clonidine HCl (Catapres Tab) 0.1 mg EVERY 6 HOURS ORAL 12/01/19 00:00 02/17/20 00:00 12/02/19 04:55 Heparin Sodium (Porcine) (Heparin 5000 units/ml) 5,000 units BID@0900,2100 SUBQ 12/01/19 09:00 01/03/20 08:59 12/02/19 10:43 Hydralazine HCl (Apresoline) 10 mg Q6H PRN ORAL PRN SBP>160 12/01/19 00:45 02/17/20 12:44 Magnesium Hydroxide (Mom) 30 ml TIDPRN PRN ORAL Constipation 12/01/19 19:30 12/29/19 19:23 Magnesium Oxide (Mag-Ox 400mg) 400 mg BID ORAL 12/01/19 09:00 12/20/19 17:59 12/02/19 10:37 Piperacillin Sod/ Tazobactam Sod 3.375 gm/Sodium Chloride 110 ml @ 27.5 mls/hr Q8H IVPB 12/01/19 04:00 12/05/19 19:59 12/02/19 04:51 Tamsulosin HCl (Flomax) 0.4 mg DAILY ORAL 12/01/19 09:00 12/19/19 08:59 12/02/19 10:37 Vancomycin HCl (Vanco rx to dose) 1 ea DAILY PRN MISC Per rx protocol 12/01/19 09:00 12/28/19 17:59 Vancomycin HCl 750 mg/Dextrose 275 ml @ 183.333 mls/hr Q24H IVPB 12/01/19 12:00 12/05/19 11:59 12/01/19 12:00 Marcela Zafar MD Dec 02, 2019 11:44
[2019-12-02 12:00] VITALS: BP 108/58
[2019-12-02] MEDS: Vancomycin 750 MG in D5W 275 ML IVPB SCH (12:00)
--- NOTE | 2019-12-02 15:11 | Pulmonology Progress Note ---
Assessment/Plan Assessment/Plan IMPRESSION: 1. Bilateral pulmonary infiltrates, COVID positive 2. Possible underlying pulmonary edema. 3. Chronic renal failure. 4. Toxic metabolic encephalopathy. 5. Hypoxemia 6. Anemia RECOMMENDATIONS: Supportive care noted as per ID. The patient is currently on antibiotics. Monitor oxygen needs. DVT prophylaxis. We will follow clinically. monitor on IV Zosyn, we will follow x-ray and followup imaging. Albuterol inhaler as needed and assist with further pulmonary intervention as needed. monitor acid base for now impression, plan, and exam edited and reviewed in detail care discussed with RN Subjective ROS Limited/Unobtainable: Yes Constitutional: Denies: fever Allergies: Coded Allergies: No Known Allergies (Unverified , 03/14/12) All Systems: reviewed and negative except above Subjective over care reviewed care noted Objective Last 24 Hour Vital Signs Date Time Temp Pulse Resp B/P (MAP) Pulse Ox O2 Delivery O2 Flow Rate FiO2 12/02/19 12:00 108/58 12/02/19 10:37 77 139/75 12/02/19 04:55 139/75 12/02/19 04:00 2.0 12/02/19 04:00 98.1 77 19 139/75 (96) 91 12/02/19 00:00 97.9 72 20 111/46 (67) 94 12/01/19 23:41 97/64 12/01/19 20:00 98.8 98 20 97/64 (75) 95 12/01/19 20:00 2.0 12/01/19 19:40 94 Nasal Cannula 2.0 28 12/01/19 19:40 70 20 94 Nasal Cannula 2.0 28 12/01/19 17:11 129/74 12/01/19 16:00 98.2 69 18 129/74 (92) 94 12/01/19 16:00 2.0 Intake and Output 12/01/19 12/02/19 19:00 07:00 Intake Total 800 ml Balance 800 ml Intake Oral 800 ml # Voids 3 1 Objective GENERAL: A well-developed female. NAD HEENT: Negative. Extraocular movements are grossly intact. NECK: Supple. LUNGS: Moderate breath sounds, occasional rhonchi scattered CARDIAC: S1, S2. Regular rate and rhythm without murmurs, rubs, gallops. ABDOMEN: Soft, nontender, nondistended. EXTREMITIES: No cyanosis or clubbing. No significant edema. NEUROLOGIC: Grossly nonfocal, weak, and confused. reviewed and edited General Appearance: no acute distress HEENT: mucous membranes moist Abdomen: soft, non tender Extremities: no edema Neurologic/Psychiatric: alert, responsive Laboratory Tests 12/02/19 11:30: Vancomycin Level Trough 17.7H Current Medications Medications (Trade) Dose Ordered Sig/David Route PRN Reason Start Time Stop Time Status Last Admin Dose Admin Acetaminophen (Tylenol) 650 mg Q6H PRN ORAL Mild Pain (Pain Scale 1-3) 12/01/19 01:30 12/18/19 19:17 Albuterol Sulfate (Proventil MDI) 2 puff Q4H PRN INH Shortness of Breath 12/01/19 01:30 02/16/20 21:29 Amlodipine Besylate (Norvasc) 5 mg DAILY ORAL 12/01/19 09:00 12/26/19 08:59 12/02/19 10:37 Clonidine HCl (Catapres Tab) 0.1 mg EVERY 6 HOURS ORAL 12/01/19 00:00 02/17/20 00:00 12/02/19 04:55 Heparin Sodium (Porcine) (Heparin 5000 units/ml) 5,000 units BID@0900,2100 SUBQ 12/01/19 09:00 01/03/20 08:59 12/02/19 10:43 Hydralazine HCl (Apresoline) 10 mg Q6H PRN ORAL PRN SBP>160 12/01/19 00:45 02/17/20 12:44 Magnesium Hydroxide (Mom) 30 ml TIDPRN PRN ORAL Constipation 12/01/19 19:30 12/29/19 19:23 Magnesium Oxide (Mag-Ox 400mg) 400 mg BID ORAL 12/01/19 09:00 12/20/19 17:59 12/02/19 10:37 Piperacillin Sod/ Tazobactam Sod 3.375 gm/Sodium Chloride 110 ml @ 27.5 mls/hr Q8H IVPB 12/01/19 04:00 12/05/19 19:59 12/02/19 12:00 Tamsulosin HCl (Flomax) 0.4 mg DAILY ORAL 12/01/19 09:00 12/19/19 08:59 12/02/19 10:37 Vancomycin HCl (Vanco rx to dose) 1 ea DAILY PRN MISC Per rx protocol 12/01/19 09:00 12/28/19 17:59 Vancomycin HCl 750 mg/Dextrose 275 ml @ 183.333 mls/hr Q24H IVPB 12/01/19 12:00 12/05/19 11:59 12/02/19 12:00 Collin Albarado MD Dec 02, 2019 15:11
[2019-12-02 16:00] VITALS: BP 109/68
--- NOTE | 2019-12-02 16:11 | NUR ---
CASE MANAGEMENT:REVIEW 12/01/2019 SI: COVID-19 PNA. UTI. ACUTE KIDNEY INJURY. 98.8 98 20 97/64 94% 2L NC FIO2 @ 28% BUN 45 CR 1.7 IS;ZOSYN IV Q8 HRS PROVENTIL INH Q4 HRS PRN FLOMAX PO QD MAG OX PO BID HEPARIN SUBQ BID MED SURG STATUS DCP; FROM [facility] PLAN;CONTINUE ISOLATION CONTINUE ABX REPEAT COVID-19 TEST
--- NOTE | 2019-12-02 16:51 | NUR ---
SWALLOW STATUS: PATIENT NOT ALERT FOR PO TRIALS. PATIENT SEEN FOR DYSPHAGIA, SEE SWALLOW EVAL REPORT FROM YESTERDAY. MEDICAL HISTORY UPDATES: SHE WAS ALSO SEEN FOR SWALLOW EVALUATION BY ST AT [facility] IN 2013. AT THAT TIME, SHE ALSO HAD A H/O PSYCHOSIS. 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 AT THAT TIME SHE HAD A MILD OROPHARYNGEAL DYSPHAGIA BUT APPEARED TO TOLERATE A LOW NA SOFT CHEW DIET AND THIN LIQUIDS. A MOD BARIUM SWALLOW STUDY WAS RECOMMENDED BUT NOT COMPLETED DUE TO SCHEDULE CONFLICTS BUT HER CXR WAS NEGATIVE. THIS ADMIT ALSO NOTES THAT SHE HAS A DEMENTIA DX (? TYPE), AND PSYCH ISSUES (BIPOLAR, DEPRESSIONS, ANXIETY, IN ADDITION SCHIZOPHRENIA MENTIONED IN SWALLOW EVAL). ALTHOUGH THE PATIENT HAS A DX OF PD, SHE IS NOT ON PD MEDS HERE NOR AT SNF (? NEED FOR NEURO CONSULT FOR MEDS). SHE WAS ON GERD MEDS AT THE SNF. RELEVANT MEDS: ALBUTEROL RESP RATE GOOD AT 18-19 BUT SOMETIMES SP02 91% ON 2 LITERS/MIN 02 PER NC. PATIENT SHOULD REST IF RESP RATE GREATER THAN 24 BPM (HAS COPD AND COULD INCREASE ASP RISK DUE TO RESP-SWALLOW INCOORDINATION) AND SP02 SHOULD NOT BE BELOW 88% (SINCE LOWER FOR COPD PATIENTS) THE PATIENT IS BEING TREATED FOR COVID 19 PNA. GOALS NOT MET FOR INTAKE ON A PUREED DIET AND NECTAR THICK LIQUIDS (25/50/75/100%). PER RD, OK TO LIBERALIZE DIET AND SEND ENSURE ENLIVE TID IF INDICATED. STAFF NOT AVAILABLE FOR EDUCATION/TRAINING BUT JOB COACHING ASKED TO HAVE STAFF READ ST NOTES WHEN THEY ARE AVAILABLE. SHE CANNOT HAVE A MOD BARIUM SWALLOW STUDY UNTIL SHE IS CLEARED OF COVID 19. PLAN: CONTINUE WITH CURRENT DIET WITH POSTED ASP/REFLUX PRECAUTIONS AND ONE TO ONE FEEDING CONTINUE WITH ENSURE ENLIVE TID PER RD RECOMMENDATIONS MOD BARIUM SWALLOW STUDY IP OR OP IF D/C (DO NOT HOLD UP DC FOR THIS STUDY).
[2019-12-02 20:00] VITALS: BP 123/68
--- NOTE | 2019-12-02 20:01 | NUR ---
HAND-OFF: Report given to Ms. Joe RN.
--- NOTE | 2019-12-02 20:05 | NUR ---
NURSE NOTES: Patient in bed, awake and nonverbal. On nasal cannula with no signs of distress or SOB. Bed locked and in lowest position. Bed alarm activated. HOB elevated. Will continue to monitor the patient.
[2019-12-03] VITALS: BP_SYST 112; BP_SYST 152; BP_DIAS 63; BP_DIAS 70
[2019-12-03 04:00] VITALS: BP 138/80
[2019-12-03] MEDS: Piperacillin/Tazobactam 3.375 GM in NS 110 ML IVPB SCH ×3 (04:15→20:23)
--- NOTE | 2019-12-03 06:24 | NUR ---
RD ASSESSMENT & RECOMMENDATIONS SEE CARE ACTIVITY FOR COMPLETE ASSESSMENT DAILY ESTIMATED NEEDS: Needs based on cardiac, pulmonary 57kg 25-30 kcals/kg 2699-6359 total kcals 1.25-1.5 g protein/kg 71-86 g total protein 25-30 mL/kg 6017-3690 total fluid mLs NUTRITION DIAGNOSIS: Swallowing difficulty r/t h/o CVA as evidenced by pt on ms finely chopped texture diet upon adm, now downgraded to pureed moist w/ NTL, w/ improved PO intake at this time. CURRENT DIET:REGULAR, pureed moist w/ NTL PO DIET RECOMMENDATIONS: Maintain liberalized regular diet w/ poor to variable po intake ADDITIONAL RECOMMENDATIONS: 1) Calibrated bedscale wt 2) Monitor mag level need to DC mag oxide 400mg BID : mag 2.5 -> 2.2 wnl 3) Skin integrity -> add MVI x 1, Vit C 250mg QD/ Sudhir BID as tolerated 4) Ensure TID with poor to variable po intake + snacks as able 5) Monitor for continued improved intake -> W/ PO intake consistently >70%, add LOW NA to diet order
--- NOTE | 2019-12-03 06:30 | Progress Note ---
DATE: 12/02/2019 CARDIOLOGY PROGRESS NOTE SUBJECTIVE: The patient is with less congestion and improving oxygenation on low flow oxygen. No chest pain or palpitations. Monitored rhythm paced. PHYSICAL EXAMINATION: LUNGS: Good breath sounds. Few rhonchi. CARDIAC: Regular rhythm and rate. Normal S1, S2. ABDOMEN: Soft. EXTREMITIES: No edema. LABORATORY DATA: White count 7.3, hemoglobin 9.6. IMPRESSION: 1. Acute on chronic diastolic congestive heart failure, clinically compensated with decreased natriuretic peptide essay levels. 2. Mrht-lj-wprinxmg protein-calorie malnutrition. 3. Acute on chronic renal failure, improved. 4. COPD with paroxysmal bronchospasm. 5. COVID-19 pneumonia, improving clinically with hypoxia decreasing. 6. Status post hydroxychloroquine therapy with no cardiac complications. PLAN: [id number] in place. Reviewed with staff. We will continue to monitor. No signs of toxicity. Hadley Rowland M.D. DR: CAROL JOB#: [id number] CC:
--- NOTE | 2019-12-03 07:13 | NUR ---
HAND-OFF: Report given to CONNER Cortez.
[2019-12-03 08:00] VITALS: BP 109/68
--- NOTE | 2019-12-03 09:00 | Diagnostic Imaging Report ---
Indication: Shortness of breath Technique: One view of the chest Comparison: none Findings: Bilateral mid and lower lung interstitial disease and patchy right perihilar and retrocardiac airspace opacities are unchanged. The heart size is upper limits normal. Left chest pacemaker again demonstrated. Findings are unchanged Impression: Unchanged bilateral infiltrates versus edema, over 5 days
[2019-12-03] MEDS: Magnesium Oxide 400mg tab ORAL SCH ×2 (09:39→18:13)
[2019-12-03] MEDS: Tamsulosin 0.4mg cap ORAL SCH (09:39)
[2019-12-03] MEDS: Heparin 5000 units/ml inj SUBQ SCH ×2 (09:53→20:25)
--- NOTE | 2019-12-03 09:59 | NUR ---
RADIOLOGY: PCXR COMPLETED 0815 HRS. NF
--- NOTE | 2019-12-03 10:13 | Pulmonology Progress Note ---
Assessment/Plan Assessment/Plan IMPRESSION: 1. Bilateral pulmonary infiltrates, COVID positive 2. Possible underlying pulmonary edema. 3. Chronic renal failure. 4. Toxic metabolic encephalopathy. 5. Hypoxemia 6. Anemia RECOMMENDATIONS: on antibiotics. Monitor oxygen needs. DVT prophylaxis. We will follow clinically. monitor on IV vanco and Zosyn, we will follow x-ray and followup imaging for clearing. Albuterol inhaler as needed and assist with further pulmonary intervention as needed. monitor acid base for now; monitor fluid status impression, plan, and exam edited and reviewed in detail care discussed with RN Subjective ROS Limited/Unobtainable: Yes Constitutional: Denies: fever Allergies: Coded Allergies: No Known Allergies (Unverified , 03/14/12) All Systems: reviewed and negative except above Subjective over care reviewed care noted recent imaging reviewed Objective Last 24 Hour Vital Signs Date Time Temp Pulse Resp B/P (MAP) Pulse Ox O2 Delivery O2 Flow Rate FiO2 12/03/19 09:39 66 109/68 12/03/19 08:00 97.9 66 21 109/68 (82) 97 12/03/19 05:52 138/80 12/03/19 04:00 98.2 90 22 138/80 (99) 90 12/03/19 04:00 2.0 12/03/19 00:00 98.1 79 20 112/70 (84) 93 12/03/19 00:00 112/70 12/02/19 21:22 72 20 95 Nasal Cannula 2.0 28 12/02/19 21:22 95 Nasal Cannula 2.0 28 12/02/19 20:00 2.0 12/02/19 20:00 98.1 74 20 123/68 (86) 96 12/02/19 17:58 109/68 12/02/19 16:00 2.0 12/02/19 16:00 97.8 66 20 109/68 (82) 93 12/02/19 12:00 2.0 12/02/19 12:00 108/58 12/02/19 12:00 97.8 62 18 108/58 (75) 95 12/02/19 10:37 77 139/75 Intake and Output 12/02/19 12/03/19 19:00 07:00 Intake Total 960 ml 240 ml Balance 960 ml 240 ml Intake Oral 960 ml 240 ml # Voids 3 2 Objective GENERAL: A well-developed female. NAD HEENT: Negative. Extraocular movements are grossly intact. NECK: Supple. LUNGS: Moderate breath sounds, occasional rhonchi scattered CARDIAC: S1, S2. Regular rate and rhythm without murmurs, rubs, gallops. ABDOMEN: Soft, nontender, nondistended. EXTREMITIES: No cyanosis or clubbing. No significant edema. NEUROLOGIC: Grossly nonfocal, weak, and confused. reviewed and edited General Appearance: no acute distress HEENT: mucous membranes moist Abdomen: soft, non tender Extremities: no edema Neurologic/Psychiatric: alert, responsive Laboratory Tests 12/02/19 11:30: Vancomycin Level Trough 17.7H Current Medications Medications (Trade) Dose Ordered Sig/David Route PRN Reason Start Time Stop Time Status Last Admin Dose Admin Acetaminophen (Tylenol) 650 mg Q6H PRN ORAL Mild Pain (Pain Scale 1-3) 12/01/19 01:30 12/18/19 19:17 Albuterol Sulfate (Proventil MDI) 2 puff Q4H PRN INH Shortness of Breath 12/01/19 01:30 02/16/20 21:29 Amlodipine Besylate (Norvasc) 5 mg DAILY ORAL 12/01/19 09:00 12/26/19 08:59 12/02/19 10:37 Clonidine HCl (Catapres Tab) 0.1 mg EVERY 6 HOURS ORAL 12/01/19 00:00 02/17/20 00:00 12/03/19 05:52 Heparin Sodium (Porcine) (Heparin 5000 units/ml) 5,000 units BID@0900,2100 SUBQ 12/01/19 09:00 01/03/20 08:59 12/03/19 09:53 Hydralazine HCl (Apresoline) 10 mg Q6H PRN ORAL PRN SBP>160 12/01/19 00:45 02/17/20 12:44 Magnesium Hydroxide (Mom) 30 ml TIDPRN PRN ORAL Constipation 12/01/19 19:30 12/29/19 19:23 Magnesium Oxide (Mag-Ox 400mg) 400 mg BID ORAL 12/01/19 09:00 12/20/19 17:59 12/03/19 09:39 Piperacillin Sod/ Tazobactam Sod 3.375 gm/Sodium Chloride 110 ml @ 27.5 mls/hr Q8H IVPB 12/01/19 04:00 12/05/19 19:59 12/03/19 04:15 Tamsulosin HCl (Flomax) 0.4 mg DAILY ORAL 12/01/19 09:00 12/19/19 08:59 12/03/19 09:39 Vancomycin HCl (Vanco rx to dose) 1 ea DAILY PRN MISC Per rx protocol 12/01/19 09:00 12/28/19 17:59 Vancomycin HCl 750 mg/Dextrose 275 ml @ 183.333 mls/hr Q24H IVPB 12/01/19 12:00 12/05/19 11:59 12/02/19 12:00 Collin Albarado MD Dec 03, 2019 10:13
--- NOTE | 2019-12-03 10:46 | Infectious Diseases Prog Note ---
Assessment/Plan Assessment/Plan antibiotics : vancomycin iv, zosyn P 1. covid 19 pneumonia test positive 4.7.20, 4.13.20 s/p rx with hydroxychloroquine 2. e.coli UTI s/p rx 3. COPD 4. schizophrenia 5. CVA 6. pneumonia 7. renal failure P 1. continue zosyn 1 more day 2. d/c iv vancomycin 3. will follow up cultures 4. continue isolation 5. covid 19 test Subjective ROS Limited/Unobtainable: Yes Allergies: Coded Allergies: No Known Allergies (Unverified , 03/14/12) Objective Vital Signs Last 24 Hour Vital Signs Date Time Temp Pulse Resp B/P (MAP) Pulse Ox O2 Delivery O2 Flow Rate FiO2 12/03/19 09:39 66 109/68 12/03/19 08:00 97.9 66 21 109/68 (82) 97 12/03/19 05:52 138/80 12/03/19 04:00 98.2 90 22 138/80 (99) 90 12/03/19 04:00 2.0 12/03/19 00:00 98.1 79 20 112/70 (84) 93 12/03/19 00:00 112/70 12/02/19 21:22 72 20 95 Nasal Cannula 2.0 28 12/02/19 21:22 95 Nasal Cannula 2.0 28 12/02/19 20:00 2.0 12/02/19 20:00 98.1 74 20 123/68 (86) 96 12/02/19 17:58 109/68 12/02/19 16:00 2.0 12/02/19 16:00 97.8 66 20 109/68 (82) 93 12/02/19 12:00 2.0 12/02/19 12:00 108/58 12/02/19 12:00 97.8 62 18 108/58 (75) 95 Height (Feet): 5 Height (Inches): 2.00 Weight (Pounds): 110 Laboratory Tests Test 12/02/19 11:30 Vancomycin Level Trough 17.7 ug/mL (5.0-12.0) H Current Medications Medications (Trade) Dose Ordered Sig/David Route PRN Reason Start Time Stop Time Status Last Admin Dose Admin Acetaminophen (Tylenol) 650 mg Q6H PRN ORAL Mild Pain (Pain Scale 1-3) 12/01/19 01:30 12/18/19 19:17 Albuterol Sulfate (Proventil MDI) 2 puff Q4H PRN INH Shortness of Breath 12/01/19 01:30 02/16/20 21:29 Amlodipine Besylate (Norvasc) 5 mg DAILY ORAL 12/01/19 09:00 12/26/19 08:59 12/02/19 10:37 Clonidine HCl (Catapres Tab) 0.1 mg EVERY 6 HOURS ORAL 12/01/19 00:00 02/17/20 00:00 12/03/19 05:52 Heparin Sodium (Porcine) (Heparin 5000 units/ml) 5,000 units BID@0900,2100 SUBQ 12/01/19 09:00 01/03/20 08:59 12/03/19 09:53 Hydralazine HCl (Apresoline) 10 mg Q6H PRN ORAL PRN SBP>160 12/01/19 00:45 02/17/20 12:44 Magnesium Hydroxide (Mom) 30 ml TIDPRN PRN ORAL Constipation 12/01/19 19:30 12/29/19 19:23 Magnesium Oxide (Mag-Ox 400mg) 400 mg BID ORAL 12/01/19 09:00 12/20/19 17:59 12/03/19 09:39 Piperacillin Sod/ Tazobactam Sod 3.375 gm/Sodium Chloride 110 ml @ 27.5 mls/hr Q8H IVPB 12/01/19 04:00 12/05/19 19:59 12/03/19 04:15 Tamsulosin HCl (Flomax) 0.4 mg DAILY ORAL 12/01/19 09:00 12/19/19 08:59 12/03/19 09:39 Vancomycin HCl (Vanco rx to dose) 1 ea DAILY PRN MISC Per rx protocol 12/01/19 09:00 12/28/19 17:59 Vancomycin HCl 750 mg/Dextrose 275 ml @ 183.333 mls/hr Q24H IVPB 12/01/19 12:00 12/05/19 11:59 12/02/19 12:00 Marcela Zafar MD Dec 03, 2019 10:46
[2019-12-03 12:00] VITALS: BP 115/74
--- NOTE | 2019-12-03 12:00 | NUR ---
NURSE NOTES: PT AXOX1, NONVERBAL, BUT ABLE TO FOLLOW SIMPLE COMMANDS. IN NO APPARENT DISTRESS AT THIS TIME. BED IN LOWEST POSITION WITH BEDSIDE RAILS X3 RAISED. BED ALARM ON. PT IN HIGH-GARCIA'S POSITION WITH HOB RAISED. WILL CONTINUE TO MONITOR.
--- NOTE | 2019-12-03 15:16 | General Progress Note ---
Assessment/Plan Problem List: (1) CKD (chronic kidney disease) stage 1, GFR 90 ml/min or greater ICD Codes: N18.1 - Chronic kidney disease, stage 1 SNOMED: 648664023 (2) CVA (cerebral vascular accident) ICD Codes: I63.9 - Cerebral infarction, unspecified SNOMED: 372647922 (3) Encephalopathy acute ICD Codes: G93.40 - Encephalopathy acute SNOMED: 7925933 (4) DINA (acute kidney injury) ICD Codes: N17.9 - DINA (acute kidney injury) SNOMED: 33932439 (5) Pneumonia due to COVID-19 virus ICD Codes: U07.1 - COVID-19; J12.89 - Other viral pneumonia SNOMED: 845093759, 965756033 Status: stable, progressing Assessment/Plan: Continue supplemental oxygen as needed. Titrate as needed. prn diuresis. monitor lytes. Antiplatelet treatment. keep dry. Cardiology and infectious disease follow-up. dvt and stress ulcer prophylaxis. Subjective ROS Limited/Unobtainable: No Constitutional: Reports: malaise, weakness HEENT: Reports: no symptoms Cardiovascular: Reports: no symptoms Respiratory: Reports: no symptoms Gastrointestinal/Abdominal: Reports: no symptoms Genitourinary: Reports: no symptoms Neurologic/Psychiatric: Reports: no symptoms Endocrine: Reports: no symptoms Hematologic/Lymphatic: Reports: anemia Allergies: Coded Allergies: No Known Allergies (Unverified , 03/14/12) All Systems: reviewed and negative except above Subjective stable this am. Improving O2 saturations. Saturating well on 2L nasal cannula. No fevers or chills. Discussed with RN no new concerns. Objective Last 24 Hour Vital Signs Date Time Temp Pulse Resp B/P (MAP) Pulse Ox O2 Delivery O2 Flow Rate FiO2 12/03/19 13:00 115/74 12/03/19 12:00 98.7 70 21 115/74 (88) 94 12/03/19 12:00 2.0 12/03/19 09:39 66 109/68 12/03/19 09:00 Nasal Cannula 2.0 12/03/19 08:00 2.0 12/03/19 08:00 97.9 66 21 109/68 (82) 97 12/03/19 05:52 138/80 12/03/19 04:00 98.2 90 22 138/80 (99) 90 12/03/19 04:00 2.0 12/03/19 00:00 98.1 79 20 112/70 (84) 93 12/03/19 00:00 112/70 12/02/19 21:22 72 20 95 Nasal Cannula 2.0 28 12/02/19 21:22 95 Nasal Cannula 2.0 28 12/02/19 20:00 2.0 12/02/19 20:00 98.1 74 20 123/68 (86) 96 12/02/19 17:58 109/68 12/02/19 16:00 2.0 12/02/19 16:00 97.8 66 20 109/68 (82) 93 Intake and Output 12/02/19 12/03/19 19:00 07:00 Intake Total 960 ml 240 ml Balance 960 ml 240 ml Intake Oral 960 ml 240 ml # Voids 3 2 Height (Feet): 5 Height (Inches): 2.00 Weight (Pounds): 110 Objective General Appearance: WD/WN, alert Neck: supple Cardiovascular: regular rhythm Respiratory/Chest: chest wall non-tender, lungs clear, normal breath sounds, no respiratory distress Abdomen: normal bowel sounds, non tender, soft, no organomegaly Edema: no edema noted Arm (L), no edema noted Arm (R), no edema noted Leg (L), no edema noted Leg (R), no edema noted Pedal (L), no edema noted Pedal (R), no edema noted Generalized Bhavesh Ovalle MD Dec 03, 2019 15:16
[2019-12-03 16:00] VITALS: BP 140/84
--- NOTE | 2019-12-03 16:53 | NUR ---
CASE MANAGEMENT:REVIEW SI: COVID-19 PNA. UTI. ACUTE KIDNEY INJURY. 98.7 70 210 109/68 64% 2L NC NO LABS AVAILABLE IS;VANCOMYCIN IV QD NORVASC PO QD HEPARIN SUBQ Q12 HRS ZOSYN IV Q8 HRS MAG-OX PO BID FLOMAX PO QD PROVENTIL INH Q4 HRS PRN MED SURG STATUS DCP;FROM [facility]
--- NOTE | 2019-12-03 19:33 | NUR ---
HAND-OFF: Report given to Jose HOWARD RN.
--- NOTE | 2019-12-03 19:58 | NUR ---
NURSE NOTES: Received patient awake, non-verbal, no SOB noted.
[2019-12-03 20:00] VITALS: BP 103/63
[2019-12-04] VITALS: BP 136/82
[2019-12-04] MEDS: Piperacillin/Tazobactam 3.375 GM in NS 110 ML IVPB SCH ×2 (03:05→12:11)
[2019-12-04 04:00] VITALS: BP 136/82
--- NOTE | 2019-12-04 05:15 | Progress Note ---
DATE: 12/03/2019 CARDIOLOGY PROGRESS NOTE SUBJECTIVE: Some congestion. No chest pain. PHYSICAL EXAMINATION: VITAL SIGNS: Blood pressure 140/84, heart rate 71, respiratory rate 21, saturation 94% on 2 liters. LUNGS: Few rales. CARDIAC: Regular rhythm and rate. Normal S1, S2. A 1/6 systolic murmur at apex. EXTREMITIES: No edema. DIAGNOSTIC DATA: Chest x-ray reveals increased interstitial markings. IMPRESSION: 1. COVID-19 pneumonia. 2. Pacemaker. 3. COPD with paroxysmal bronchospasm. 4. Component of acute diastolic congestive heart failure. PLAN: Respiratory hygiene. Oxygen therapy. Check natriuretic peptide assay. Trial of diuresis. Monitor blood pressure control on current regimen. Hadley Rowland M.D. DR: CAROL JOB#: [id number] CC:
[2019-12-04 06:19] LABS: BASOPHILS % (AUTO) 1.8 % (0.0-2.0); EOSINOPHILS % (AUTO) 1.1 % (0.0-3.0); HEMATOCRIT 25.9 % (37.0-47.0); HEMOGLOBIN 8.7 G/DL (12.0-16.0); LYMPHOCYTES % (AUTO) 24.7 % (20.0-45.0); MEAN CORPUSCULAR VOLUME 86 FL (80-99); MONOCYTES % (AUTO) 5.6 % (1.0-10.0); NEUTROPHILS % (AUTO) 66.9 % (45.0-75.0); PLATELET COUNT 213 K/UL (150-450); RED BLOOD COUNT 3.02 M/UL (4.20-5.40); RED CELL DISTRIBUTION WIDTH 14.5 % (11.6-14.8)
--- NOTE | 2019-12-04 07:16 | NUR ---
HAND-OFF: Report given to Diego Rios RN.
[2019-12-04 08:00] VITALS: BP 112/65
[2019-12-04 08:06] LABS: ALANINE AMINOTRANSFERASE 18 U/L (12-78); ALBUMIN 2.7 G/DL (3.4-5.0); ALBUMIN/GLOBULIN RATIO 0.7 (1.0-2.7); ALKALINE PHOSPHATASE 64 U/L (46-116); ANION GAP 9 mmol/L (5-15); ASPARTATE AMINO TRANSFERASE 18 U/L (15-37); BILIRUBIN,TOTAL 0.4 MG/DL (0.2-1.0); BLOOD UREA NITROGEN 33 mg/dL (7-18); CALCIUM 9.3 MG/DL (8.5-10.1); CARBON DIOXIDE 24 MMOL/L (21-32); CHLORIDE 105 MMOL/L (98-107); CREATININE 1.5 MG/DL (0.55-1.30); POTASSIUM 4.6 MMOL/L (3.5-5.1); SODIUM 138 MMOL/L (136-145)
[2019-12-04] MEDS: Magnesium Oxide 400mg tab ORAL SCH (09:05)
[2019-12-04] MEDS: Tamsulosin 0.4mg cap ORAL SCH (09:05)
[2019-12-04] MEDS: Heparin 5000 units/ml inj SUBQ SCH (09:06)
--- NOTE | 2019-12-04 09:12 | Pulmonology Progress Note ---
Assessment/Plan Assessment/Plan IMPRESSION: 1. Bilateral pulmonary infiltrates, COVID positive 2. Possible underlying pulmonary edema. 3. Chronic renal failure. 4. Toxic metabolic encephalopathy. 5. Hypoxemia 6. Anemia RECOMMENDATIONS: on antibiotics. Monitor oxygen needs. DVT prophylaxis. monitor on IV vanco and Zosyn, we will follow x-ray for clearing and followup. Albuterol inhaler as needed and assist with further pulmonary intervention as needed. monitor acid base for now; monitor fluid status; keep negative per cards impression, plan, and exam edited and reviewed in detail care discussed with RN Subjective ROS Limited/Unobtainable: Yes Constitutional: Denies: fever Allergies: Coded Allergies: No Known Allergies (Unverified , 03/14/12) All Systems: reviewed and negative except above Subjective over care reviewed care noted ID reviewed still with infiltrates on oxygen Objective Last 24 Hour Vital Signs Date Time Temp Pulse Resp B/P (MAP) Pulse Ox O2 Delivery O2 Flow Rate FiO2 12/04/19 09:00 62 112/65 12/04/19 08:00 98.2 62 18 112/65 (81) 95 12/04/19 07:56 93 Nasal Cannula 2.0 28 12/04/19 05:54 136/82 12/04/19 04:00 97.8 74 20 136/82 (100) 92 12/04/19 00:04 136/82 12/04/19 00:00 98.0 68 22 136/82 (100) 95 12/04/19 00:00 2.0 12/03/19 22:00 70 20 96 Nasal Cannula 2.0 28 12/03/19 22:00 94 Nasal Cannula 2.0 28 12/03/19 20:00 98.3 73 20 103/63 (76) 98 12/03/19 20:00 2.0 12/03/19 18:13 140/84 12/03/19 16:00 2.0 12/03/19 16:00 98.1 71 21 140/84 (102) 94 12/03/19 13:00 115/74 12/03/19 12:00 98.7 70 21 115/74 (88) 94 12/03/19 12:00 2.0 12/03/19 09:39 66 109/68 Intake and Output 12/03/19 12/04/19 19:00 07:00 Intake Total 590.0 ml 420.0 ml Output Total 500 ml Balance 590.0 ml -80.0 ml Intake Oral 480 ml 200 ml IV Total 110.0 ml 220.0 ml Output Urine Total 500 ml # Voids 2 4 # Bowel Movements 1 Objective GENERAL: A well-developed female. NAD HEENT: Negative. Extraocular movements are grossly intact. NECK: Supple. LUNGS: Moderate breath sounds,some rhonchi scattered; no wheeze CARDIAC: S1, S2. Regular rate and rhythm without murmurs, rubs, gallops. ABDOMEN: Soft, nontender, nondistended. EXTREMITIES: No cyanosis or clubbing. No significant edema. NEUROLOGIC: Grossly nonfocal, weak, and confused. reviewed and edited General Appearance: no acute distress HEENT: mucous membranes moist Abdomen: soft, non tender Extremities: no edema Neurologic/Psychiatric: alert, responsive Laboratory Tests 12/04/19 05:30: White Blood Count 8.0, Red Blood Count 3.02L, Hemoglobin 8.7L, Hematocrit 25.9L , Mean Corpuscular Volume 86, Mean Corpuscular Hemoglobin 28.7, Mean Corpuscular Hemoglobin Concent 33.6, Red Cell Distribution Width 14.5, Platelet Count 213, Mean Platelet Volume 6.9, Neutrophils (%) (Auto) 66.9, Lymphocytes (% ) (Auto) 24.7, Monocytes (%) (Auto) 5.6, Eosinophils (%) (Auto) 1.1, Basophils ( %) (Auto) 1.8, Sodium Level 138, Potassium Level 4.6, Chloride Level 105, Carbon Dioxide Level 24, Anion Gap 9, Blood Urea Nitrogen 33H, Creatinine 1.5H, Estimat Glomerular Filtration Rate 33.6, Glucose Level 87, Calcium Level 9.3, Magnesium Level 2.1, Total Bilirubin 0.4, Aspartate Amino Transf (AST/SGOT) 18, Alanine Aminotransferase (ALT/SGPT) 18, Alkaline Phosphatase 64, Pro-B-Type Natriuretic Peptide 250H, Total Protein 6.7, Albumin 2.7L, Globulin 4.0, Albumin /Globulin Ratio 0.7L Current Medications Medications (Trade) Dose Ordered Sig/David Route PRN Reason Start Time Stop Time Status Last Admin Dose Admin Acetaminophen (Tylenol) 650 mg Q6H PRN ORAL Mild Pain (Pain Scale 1-3) 12/01/19 01:30 12/18/19 19:17 Albuterol Sulfate (Proventil MDI) 2 puff Q4H PRN INH Shortness of Breath 12/01/19 01:30 02/16/20 21:29 Amlodipine Besylate (Norvasc) 5 mg DAILY ORAL 12/01/19 09:00 12/26/19 08:59 12/02/19 10:37 Clonidine HCl (Catapres Tab) 0.1 mg EVERY 6 HOURS ORAL 12/01/19 00:00 02/17/20 00:00 12/04/19 05:54 Heparin Sodium (Porcine) (Heparin 5000 units/ml) 5,000 units BID@0900,2100 SUBQ 12/01/19 09:00 01/03/20 08:59 12/04/19 09:06 Hydralazine HCl (Apresoline) 10 mg Q6H PRN ORAL PRN SBP>160 12/01/19 00:45 02/17/20 12:44 Magnesium Hydroxide (Mom) 30 ml TIDPRN PRN ORAL Constipation 12/01/19 19:30 12/29/19 19:23 Magnesium Oxide (Mag-Ox 400mg) 400 mg BID ORAL 12/01/19 09:00 12/20/19 17:59 12/04/19 09:05 Piperacillin Sod/ Tazobactam Sod 3.375 gm/Sodium Chloride 110 ml @ 27.5 mls/hr Q8H IVPB 12/01/19 04:00 12/04/19 23:59 12/04/19 03:05 Tamsulosin HCl (Flomax) 0.4 mg DAILY ORAL 12/01/19 09:00 12/19/19 08:59 12/04/19 09:05 Collin Albarado MD Dec 04, 2019 09:12
--- NOTE | 2019-12-04 09:38 | NUR ---
DISCHARGE PLANNING PATIENT HAS BEEN REFERRED BACK TO [facility] P: [phone] F: [phone] ALL VITALS AND CLINICALS FAXED TO [facility] FOR REVIEW DR ZEPEDA GAVE TO/RB TATE TO DC IF FACILITY WILL ACCEPT PATIENT. NOTED AND CARRIED OUT. Addendum: 12/04/19 at 1241 by ANDRE LAM LVN LVN CONFIRMED WITH CARTER AT [facility]. PATIENT ACCEPTED TO RETURN WITH BED ASSIGNMENT FOLLOWS 23-A SKILLED AMBULANCE TRANSPORTATION SCHEDULED WITH [facility] @ EXT [phone] WITH ETA @ 1530 PM Addendum: 12/04/19 at 1251 by ANDRE LAM LVN LVN CALL BACK RECEIVED FROM CARTER AT [facility] WITH BED ASSIGNMENT CHANGE TO 16-B TOÑA
[2019-12-04 12:00] VITALS: BP 126/68
[2019-12-04] MEDS ORDERED: MAGNESIUM OXID400 M1 ORAL (13:56)
[2019-12-04] MEDS ORDERED: NORVASC5 MG ORAL (13:56)
[2019-12-04] MEDS ORDERED: MILK OF MA2400 MG/10 ORAL (13:57)
[2019-12-04] MEDS ORDERED: TYLENOL EXTRA500 MG ORAL (13:57)
[2019-12-04] MEDS ORDERED: PROVENTIL HFA6.7 G1 IH (13:58)
--- NOTE | 2019-12-04 14:12 | NUR ---
NURSE NOTES: RECEIVED ORDER FOR DISCHARGE. PER DR ZEPEDA, CONTINUE TO HOSPITAL MEDS. RN MADE DR Jade MOORE AWARE AND PER DR Jade MOORE, PT IS CLEARED TO BE DISCHARGED EVEN WHEN WAITING FOR RESULTS OF PREVIOUS COVID [address]. [address] Jade MOORE, PT HAS BEEN IN ISOLATION FOR MORE THAN 12 DAYS. RN GAVE REPORT TO CONNER JUAREZ DIGESTER HAND AT [facility]. PT HAS NO BELONGINGS AND NO FAMILY TO CONTACT.
--- NOTE | 2019-12-04 14:37 | Infectious Diseases Prog Note ---
Assessment/Plan Assessment/Plan A; 1. Pneumonia with COVID19 Positive: 11/17 & 11/23-11/26 2. History of schizophrenia. 3. Stroke. 4. COPD. 5. E. coli UTI treated 6. anemia PLAN: 1. Discontinue Zosyn 3. Agree with discharge Subjective ROS Limited/Unobtainable: Yes Allergies: Coded Allergies: No Known Allergies (Unverified , 03/14/12) Objective Vital Signs Last 24 Hour Vital Signs Date Time Temp Pulse Resp B/P (MAP) Pulse Ox O2 Delivery O2 Flow Rate FiO2 12/04/19 12:00 97.7 61 18 126/68 (87) 95 12/04/19 12:00 2.0 12/04/19 12:00 126/68 12/04/19 09:00 Nasal Cannula 2.0 12/04/19 09:00 62 112/65 12/04/19 08:00 2.0 12/04/19 08:00 98.2 62 18 112/65 (81) 95 12/04/19 07:56 93 Nasal Cannula 2.0 28 12/04/19 05:54 136/82 12/04/19 04:00 97.8 74 20 136/82 (100) 92 12/04/19 00:04 136/82 12/04/19 00:00 98.0 68 22 136/82 (100) 95 12/04/19 00:00 2.0 12/03/19 22:00 70 20 96 Nasal Cannula 2.0 28 12/03/19 22:00 94 Nasal Cannula 2.0 28 12/03/19 20:00 98.3 73 20 103/63 (76) 98 12/03/19 20:00 2.0 12/03/19 18:13 140/84 12/03/19 16:00 2.0 12/03/19 16:00 98.1 71 21 140/84 (102) 94 Height (Feet): 5 Height (Inches): 2.00 Weight (Pounds): 110 General Appearance: no acute distress HEENT: mucous membranes moist Respiratory/Chest: other - oxygen by nasal cannula Cardiovascular: normal rate Abdomen: soft, non tender Extremities: no edema Laboratory Tests Test 12/04/19 05:30 White Blood Count 8.0 K/UL (4.8-10.8) Red Blood Count 3.02 M/UL (4.20-5.40) L Hemoglobin 8.7 G/DL (12.0-16.0) L Hematocrit 25.9 % (37.0-47.0) L Mean Corpuscular Volume 86 FL (80-99) Mean Corpuscular Hemoglobin 28.7 PG (27.0-31.0) Mean Corpuscular Hemoglobin Concent 33.6 G/DL (32.0-36.0) Red Cell Distribution Width 14.5 % (11.6-14.8) Platelet Count 213 K/UL (150-450) Mean Platelet Volume 6.9 FL (6.5-10.1) Neutrophils (%) (Auto) 66.9 % (45.0-75.0) Lymphocytes (%) (Auto) 24.7 % (20.0-45.0) Monocytes (%) (Auto) 5.6 % (1.0-10.0) Eosinophils (%) (Auto) 1.1 % (0.0-3.0) Basophils (%) (Auto) 1.8 % (0.0-2.0) Sodium Level 138 MMOL/L (136-145) Potassium Level 4.6 MMOL/L (3.5-5.1) Chloride Level 105 MMOL/L (98-107) Carbon Dioxide Level 24 MMOL/L (21-32) Anion Gap 9 mmol/L (5-15) Blood Urea Nitrogen 33 mg/dL (7-18) H Creatinine 1.5 MG/DL (0.55-1.30) H Estimat Glomerular Filtration Rate 33.6 mL/min (>60) Glucose Level 87 MG/DL (74-106) Calcium Level 9.3 MG/DL (8.5-10.1) Magnesium Level 2.1 MG/DL (1.8-2.4) Total Bilirubin 0.4 MG/DL (0.2-1.0) Aspartate Amino Transf (AST/SGOT) 18 U/L (15-37) Alanine Aminotransferase (ALT/SGPT) 18 U/L (12-78) Alkaline Phosphatase 64 U/L (46-116) Pro-B-Type Natriuretic Peptide 250 pg/mL (0-125) H Total Protein 6.7 G/DL (6.4-8.2) Albumin 2.7 G/DL (3.4-5.0) L Globulin 4.0 g/dL Albumin/Globulin Ratio 0.7 (1.0-2.7) L Current Medications Medications (Trade) Dose Ordered Sig/David Route PRN Reason Start Time Stop Time Status Last Admin Dose Admin Acetaminophen (Tylenol) 650 mg Q6H PRN ORAL Mild Pain (Pain Scale 1-3) 12/01/19 01:30 12/18/19 19:17 Albuterol Sulfate (Proventil MDI) 2 puff Q4H PRN INH Shortness of Breath 12/01/19 01:30 02/16/20 21:29 Amlodipine Besylate (Norvasc) 5 mg DAILY ORAL 12/01/19 09:00 12/26/19 08:59 12/02/19 10:37 Clonidine HCl (Catapres Tab) 0.1 mg EVERY 6 HOURS ORAL 12/01/19 00:00 02/17/20 00:00 12/04/19 05:54 Heparin Sodium (Porcine) (Heparin 5000 units/ml) 5,000 units BID@0900,2100 SUBQ 12/01/19 09:00 01/03/20 08:59 12/04/19 09:06 Hydralazine HCl (Apresoline) 10 mg Q6H PRN ORAL PRN SBP>160 12/01/19 00:45 02/17/20 12:44 Magnesium Hydroxide (Mom) 30 ml TIDPRN PRN ORAL Constipation 12/01/19 19:30 12/29/19 19:23 Magnesium Oxide (Mag-Ox 400mg) 400 mg BID ORAL 12/01/19 09:00 12/20/19 17:59 12/04/19 09:05 Piperacillin Sod/ Tazobactam Sod 3.375 gm/Sodium Chloride 110 ml @ 27.5 mls/hr Q8H IVPB 12/01/19 04:00 12/04/19 23:59 12/04/19 12:11 Tamsulosin HCl (Flomax) 0.4 mg DAILY ORAL 12/01/19 09:00 12/19/19 08:59 12/04/19 09:05 Eleazar Prieto MD Dec 04, 2019 14:37
--- NOTE | 2019-12-04 15:45 | NUR ---
NURSE NOTES: PT WAS DISCHARGED IN STABLE CONDITION WITH AMBULANCE PERSONNEL. IV ACCESS DISCONTINUED. SIGN PLACED OUTSIDE PT'S DOOR FOR EVS TO CLEAN AFTER 1700HRS PER COVID DISCHARGE PROTOCOL TO CLEAN ROOM 1 HOUR AFTER DISCHARGE.
--- NOTE | 2019-12-04 18:26 | Discharge Summary ---
Discharge Summary Discharge Summary _ =DATE OF ADMISSION: 11/18/2019 DATE OF DISCHARGE: 12/04/2019 DISCHARGED BY: Dr. Ovalle REASON FOR ADMISSION: 79 years old female with past medical history of CVA, hypertension, COPD, chronic kidney disease, conduction system disease, status post pacemaker, Parkinson disease, bipolar disorder, resident of long-term facility, presented due to complaint of generalized weakness, malaise, cough and fever. Symptoms started about 1 week ago. It was noted that several other residents in the facility have been tested positive for COVID-19. Upon evaluation in emergency room patient was febrile and hypoxic and required supplemental oxygen. Laboratory work-up revealed normal WBC , creatinine 1.4. Urinalysis revealed pyuria. Chest x-ray demonstrated bilateral medial and lower lung opacity, likely infiltrate. Influenza screen test was negative. Patient was swabbed for COVID and admitted for presumptive diagnosis of COVID- 19 pneumonia versus bacterial pneumonia. CONSULTANTS: executive vp Dr. Rowland pulmonary Dr. Albarado ID specialist Dr. Zafar HOSPITAL COURSE: Patient admitted to isolation room and started on antibiotic as per ID specialist recommendation . Patient undergone treatment with hydroxychloroquine and ceftriaxone. QT interval was closely monitored , remained stable. Blood cultures were negative. Urine culture revealed E. coli. SARS-CoV-2 to by PCR was detected on 11/17 was detected. Repeated test on 11/23, 11/26 for COVID-19 were positive as well. No leukocytosis. No fevers. Supplemental oxygen provided and titrated to keep pulse oximetry above 92%. Pulmonary toilet with MDI was on board as needed. Volumes were closely monitored. Patient received periodic diuresis with close monitoring of cardiorenal parameters. Pro BNP from highest 1838 down to 215. Renal parameters and electrolytes were closely monitored. Creatinine from high 1.9 down to 1.5. Nephrotoxins were avoided if possible. Hyperkalemia treated. All electrolytes stable prior to discharge Protein supplements provided as per registered radiation therapist recommendations. Patient was stable for transfer back to his long-term facility. No fevers without use of antipyretics , no leukocytosis. FINAL DIAGNOSES: COVID-19 pneumonia Possible underlying pulmonary edema Toxic metabolic encephalopathy Hypoxemia E. coli UTI COPD with paroxysmal bronchospasm Pacemaker Acute on chronic diastolic congestive heart failure Acute kidney injury on chronic renal failure Mild to moderate protein calorie malnutrition Hypertensive heart disease Cerebrovascular disease with history of stroke Hyperkalemia Schizophrenia DISCHARGE MEDICATIONS: See Medication Reconciliation list. DISCHARGE INSTRUCTIONS: Patient was discharged to the long-term facility. Follow up with medical doctor at the facility. I have been assigned to dictate discharge summary for this account. I was not involved in the patient's management. Miladys Wilson NP Dec 04, 2019 18:26
--- NOTE | 2019-12-05 02:30 | Progress Note ---
DATE: 12/04/2019 CARDIOLOGY PROGRESS NOTE SUBJECTIVE: The patient without shortness of breath or hypoxia. On low-flow oxygen. PHYSICAL EXAMINATION: VITAL SIGNS: Blood pressure 112/65, pulse 62, respirations 18. LUNGS: With few rhonchi. CARDIAC: Regular. No new murmur. ABDOMEN: Soft. EXTREMITIES: No edema. LABORATORY DATA: White count 8, hemoglobin 8.7. Magnesium 2.1, potassium 4.6, BUN 33, creatinine 1.5. Natriuretic peptide 250. IMPRESSION: 1. COVID-19 pneumonia. 2. Moderate protein-calorie malnutrition. 3. Pacemaker. 4. Acute on chronic diastolic congestive heart failure, now clinically compensated. 5. Acute on chronic kidney insufficiency, stable. 6. COPD. 7. Anemia of chronic disease and chronic kidney disease. PLAN: Stable for completion of recovery at [facility]. Discharge medication regimen reviewed and reconciled. Outpatient pacemaker interrogation will be arranged once the patient is no longer COVID positive. Hadley Rowland M.D. DR: CAROL JOB#: [id number] CC:
--- NOTE | 2019-12-05 05:30 | Discharge Summary ---
DATE OF ADMISSION: 11/18/2019 DATE OF DISCHARGE: 12/04/2019 ADMISSION DIAGNOSES: 1. COVID-19 pneumonia. 2. Respiratory failure. 3. History of stroke. 4. Hypertension. 5. History of conduction system disease, status post pacemaker. 6. Schizophrenia. DISCHARGE DIAGNOSES: 1. COVID-19 pneumonia. 2. Respiratory failure. 3. History of stroke. 4. Hypertension. 5. History of conduction system disease, status post pacemaker. 6. Schizophrenia. HOSPITAL COURSE: The patient was admitted with complaints of COVID-19 pneumonia. She was placed on supplemental oxygen. She required as much as 6 liters. She did receive hydroxychloroquine which she tolerated well. She had gradual improvement in her condition although her COVID PCR remained positive. Clinically she was stable. She had no further fevers for 14 days. She remained stable on 2 liters nasal cannula which she is on chronically for her COPD. DISCHARGE MEDICATIONS: Please see discharge medication list for discharge medications. DIET: Cardiac diet. ACTIVITY: Ad-srinivas. FOLLOWUP: The patient to follow up in one to two days at custodial facility. Bhavesh Ovalle M.D. DR: Aleida JOB#: [id number] CC:
== END 2019-12-04 15:55 | DRG 177 ==
LOC: EDBD 19:48 → EMR 20:11 → 2E 21:00 → EDBEDREQSVC 21:19 → EDBEDREQ 21:37 → 4E 11-27 21:58 → 2W 11-28 21:38 → 4E 11-30 22:45
DX: U07.1 COVID-19 (principal); J12.89 Other viral pneumonia; G92 Toxic encephalopathy; I50.33 Acute on chronic diastolic (congestive) heart failure; N17.9 Acute kidney failure, unspecified; N39.0 Urinary tract infection, site not specified; I13.0 Hypertensive heart and chronic kidney disease with heart failure and stage 1 through stage 4 chronic kidney disease, or unspecified chronic kidney disease; E44.0 Moderate protein-calorie malnutrition; N18.1 Chronic kidney disease, stage 1; Z86.73 Personal history of transient ischemic attack (TIA), and cerebral infarction without residual deficits; R09.02 Hypoxemia; Z95.0 Presence of cardiac pacemaker; B96.20 Unspecified Escherichia coli [E. coli] as the cause of diseases classified elsewhere; E87.5 Hyperkalemia; F20.9 Schizophrenia, unspecified; G20 Parkinson's disease; F31.9 Bipolar disorder, unspecified; E83.42 Hypomagnesemia; D63.1 Anemia in chronic kidney disease
CPT/HCPCS: 36415; 36600; 71045; 80048; 80053; 80202; 81003; 82550; 82553; 82803; 83605; 83735; 83880; 84443; 84484; 84550; 85007; 85025; 86710; 87040; 87081; 87086; 87181; 87635; 93005; 94664; 96365; 96368; 99285; J7030